=== PATIENT | male | born 1930 | race Caucasian/White ===

== ENCOUNTER 2016-09-14 08:07 | Inpatient (IN) | payer MEDICARE, OTHER ==
[2016-09-14] MEDS ORDERED: SUBLIMAZE 100 MCG/2 ML IV ONE (08:33)
[2016-09-14] MEDS ORDERED: PROTONIX 40 MG IV IV ONE ×2 (08:33→08:38)
[2016-09-14] MEDS ORDERED: Zofran 4 MG/2 ML VIAL IV ONE (08:33)
[2016-09-14] MEDS ORDERED: SUBLIMAZE 100 MCG/2 ML ONE (08:38)
[2016-09-14] MEDS ORDERED: Sodium Chloride 0.9% 1000 ML 1,000 ML ONE (08:38)
[2016-09-14] MEDS ORDERED: Zofran 4 MG/2 ML VIAL ONE (08:38)
[2016-09-14 08:39] LABS: BASOPHIL % 0.2 % (0.0-0.4); Eosinophil % 1.6 % (0.00-5.0); Granulocytes % 68.6 % (36.0-66.0); Lymphocytes % 22.6 % (24.0-44.0); Mean Cell Volume 89.2 fl (78-100); Mean Platelet Volume 9.4 fl (6-9.5); Platelet Count 203 K/mm3 (150-450); Red Blood Count 4.27 M/mm3 (4.1-5.6); Red Cell Distribution Width 13.7 % (11.5-14.0); White Blood Count 6.3 K/mm3 (4.0-10.5)
[2016-09-14] MEDS ORDERED: Sodium Chloride 0.9% 1000 ML 1,000 ML IV SCH (08:45)
--- NOTE | 2016-09-14 08:55 | ERPHSYRPT ---
- History of Present Illness Time Seen by Provider: 09/14/16 08:25 Historian: patient Exam Limitations: clinical condition Patient Subjective Stated Complaint: abd pain Triage Nursing Assessment: woke up with non radiating mid abd pain since 529-- pain lessened on arrival but still a 5/10. denies urine/bowel problems. noraml oral intake. bs present. abd soft but tender with palpation Physician History: PATIENT WITH HISTORY OF MID TO EPIGASTRIC PAINS ONSET 5AM TODAY, HAS PAIN SCALE 8/10, HAS IMPROVE TO PAIN SCALE 5/10. DENIES ASSOCIATED NAUSEA, EMESIS OR DIARRHEA. DENIES FEVER, COUGH, URINARY SYMPTOMS, FREQUENCY, DYSURIA, HEMATURIA OR DIARRHEA. Timing/Duration: today Activities at Onset: none Quality: cramping, sharpness Abdominal Pain Onset Location: epigastric, periumbilical Pain Radiation: no radiation Severity of Pain-Max: moderate Severity of Pain-Current: moderate Modifying Factors: Improves With: nothing Associated Symptoms: denies symptoms Previous symptoms: no prior history Allergies/Adverse Reactions: No Known Drug Allergies Allergy (Unverified 09/14/16 08:22) Home Medications: Clopidogrel Bisulfate 75 mg [PLAVIX 75 MG Tablet] 75 mg PO DAILY 12/19/12 [History] Bimatoprost 0.01% [Lumigan 0.01% 2.5 ml] 0 ml 03/30/13 [History] Fluticasone Propionate [Flonase] 16 gm NS DAILY 03/30/13 [History] Pravastatin Sodium 40 mg PO 03/30/13 [History] Valsartan/Hydrochlorothiazide [Diovan Hct 320-12.5 mg Tab] 1 each PO 03/30/13 [ History] Hx Tetanus, Diphtheria Vaccination/Date Given: Yes Hx Influenza Vaccination/Date Given: Yes Hx Pneumococcal Vaccination/Date Given: Yes Immunizations Up to Date: Yes - Review of Systems Constitutional: No Fever, No Chills Eyes: No Symptoms Ears, Nose, & Throat: No Symptoms Respiratory: No Symptoms, No Cough, No Dyspnea Cardiac: No Symptoms, No Chest Pain, No Edema, No Syncope Abdominal/Gastrointestinal: Abdominal Pain, No Nausea, No Vomiting, No Diarrhea Genitourinary Symptoms: No Symptoms, No Dysuria Musculoskeletal: No Symptoms, No Back Pain, No Neck Pain Skin: No Rash Neurological: No Dizziness, No Focal Weakness, No Sensory Changes Psychological: No Symptoms Endocrine: No Symptoms All Other Systems: Reviewed and Negative - Past Medical History Pertinent Past Medical History: Yes Neurological History: Stroke ENT History: Cataracts, Glaucoma, Other Cardiac History: Hypertension Respiratory History: No Pertinent History Endocrine Medical History: No Pertinent History Musculoskeletal History: No Pertinent History GI Medical History: Hernia History: No Pertinent History Psycho-Social History: No Pertinent History Male Reproductive Disorders: No Pertinent History - Past Surgical History Past Surgical History: Yes Neuro Surgical History: No Pertinent History Cardiac: No Pertinent History Respiratory: No Pertinent History Gastrointestinal: Appendectomy, Cholecystectomy, Hernia Repair Genitourinary: No Pertinent History Musculoskeletal: No Pertinent History Male Surgical History: No Pertinent History - Social History Smoking Status: Never smoker Exposure to second hand smoke: No Drug Use: none Patient Lives Alone: No - Nursing Vital Signs Nursing Vital Signs: Initial Vital Signs Temperature 97.3 F Temperature Source Oral Pulse Rate 62 Respiratory Rate 18 Blood Pressure [] 160/70 Pain Intensity 0 - Physical Exam General Appearance: no apparent distress, alert Eye Exam: PERRL/EOMI, eyes nml inspection Ears, Nose, Throat Exam: normal ENT inspection, pharynx normal, moist mucous membranes Neck Exam: normal inspection, non-tender, supple, full range of motion Respiratory Exam: normal breath sounds, lungs clear, No respiratory distress Cardiovascular Exam: regular rate/rhythm, normal heart sounds Gastrointestinal/Abdomen Exam: soft, normal bowel sounds, tenderness ( SUPRAUMBILICAL TENDERNESS, NO GUARDING OR REBOUND TENDERNESS), No mass Back Exam: normal inspection, normal range of motion, No CVA tenderness, No vertebral tenderness Extremity Exam: normal inspection, normal range of motion, pelvis stable Neurologic Exam: alert, oriented x 3, cooperative, normal mood/affect, nml cerebellar function, sensation nml, No motor deficits Skin Exam: normal color, warm, dry SpO2 Interpretation: normal SpO2: 96 Oxygen Delivery: Room Air - CT Exams Abdomen/Pelvis CT Interpretation: Tele-radiologist Report (THERE IS A 6 X 6 X 3 MM STONE AT THE RIGTH DISTAL URETER CAUSES NO RIGHT HYDRONEPHROSIS AND NO HYDROURETER) Ordered Tests: Active Orders 24 hr Category Date Time Status Clean Catch Urine Specimen STAT Care 09/14/16 08:33 Active IV Insertion STAT Care 09/14/16 08:33 Active ABDOMEN AND PELVIS W CONTRAST [CT] Stat Exams 03/12/17 08:33 Taken AMYLASE Stat Lab 09/14/16 08:30 Completed CBC W DIFF Stat Lab 09/14/16 08:30 Completed CMP Stat Lab 09/14/16 08:30 Completed LIPASE Stat Lab 09/14/16 08:30 Completed UA W/ MICROSCOPIC Stat Lab 09/14/16 09:20 Completed Transfer Order Routine Transfer 09/14/16 10:58 Ordered Medication Summary Generic Name Dose Route Start Last Admin Trade Name Freq PRN Reason Stop Dose Admin Sodium Chloride 1,000 mls @ 250 mls/hr 09/14/16 08:45 09/14/16 08:41 Sodium Chloride 0.9% 1000 Ml IV 10/14/16 08:44 250 mls/hr .Q4H VILMA Administration Discontinued Medications Generic Name Dose Route Start Last Admin Trade Name Freq PRN Reason Stop Dose Admin Fentanyl Citrate 50 mcg 09/14/16 08:33 09/14/16 08:40 Sublimaze 100 Mcg/2 Ml IV 09/14/16 08:34 50 mcg STAT ONE Administration Fentanyl Citrate Confirm 09/14/16 08:38 Sublimaze 100 Mcg/2 Ml Administered 09/14/16 08:39 Dose 100 mcg .ROUTE .STK-MED ONE Sodium Chloride Confirm 09/14/16 08:38 Sodium Chloride 0.9% 1000 Ml Administered 09/14/16 08:39 Dose 1,000 mls @ ud .ROUTE .STK-MED ONE Ondansetron HCl 4 mg 09/14/16 08:33 09/14/16 08:41 Zofran 4 Mg/2 Ml Vial IV 09/14/16 08:34 4 mg STAT ONE Administration Ondansetron HCl Confirm 09/14/16 08:38 Zofran 4 Mg/2 Ml Vial Administered 09/14/16 08:39 Dose 4 mg .ROUTE .STK-MED ONE Pantoprazole Sodium 40 mg 09/14/16 08:33 09/14/16 08:40 Protonix 40 Mg Iv IV 09/14/16 08:34 40 mg STAT ONE Administration Pantoprazole Sodium Confirm 09/14/16 08:38 Protonix 40 Mg Iv Administered 09/14/16 08:39 Dose 40 mg IV .STK-MED ONE Lab/Rad Data: Laboratory Result Diagrams 09/14/16 08:30 09/14/16 08:30 Laboratory Results 09/14/16 09/14/16 09/14/16 Range/Units 09:20 08:30 08:30 WBC 6.3 (4.0-10.5) K/mm3 RBC 4.27 (4.1-5.6) M/mm3 Hgb 12.8 (12.5-18.0) gm/dl Hct 38.1 L (42-50) % MCV 89.2 (78-100) fl MCH 30.0 (26-32) pg MCHC 33.6 (32-36) g/dl RDW 13.7 (11.5-14.0) % Plt Count 203 (150-450) K/mm3 MPV 9.4 (6-9.5) fl Gran % 68.6 H (36.0-66.0) % Lymphocytes % 22.6 L (24.0-44.0) % Monocytes % 7.0 (0.0-12.0) % Eosinophils % 1.6 (0.00-5.0) % Basophils % 0.2 (0.0-0.4) % Basophils # 0.01 (0-0.4) Sodium 135 L (136-145) mEq/L Potassium 3.4 L (3.5-5.1) mEq/L Chloride 103 (98-107) mEq/L Carbon Dioxide 28.8 (21-32) mEq/L Anion Gap 7.0 (5-15) MEQ/L BUN 25 H (9-20) mg/dL Creatinine 1.19 (0.55-1.30) mg/dl Estimated GFR > 60 ML/MIN Glucose 123 H (70-110) MG/DL Calcium 9.8 (8.5-10.1) mg/dL Total Bilirubin 0.9 (0.2-1.0) mg/dL AST 28 (15-37) U/L ALT 17 (12-78) U/L Alkaline Phosphatase 51 (46-116) U/L Serum Total Protein 7.0 (6.4-8.2) gm/dL Albumin 3.6 (3.4-5.0) g/dL Amylase 180 H (25-115) U/L Lipase 1910 H (73-393) U/L Ur Collection Type CCMS Urine Color YELLOW (YELLOW) Urine Appearance CLEAR (CLEAR) Urine pH 6.0 (5-6) Ur Specific [place] 1.025 (1.005-1.025) Urine Protein TRACE (Negative) Urine Glucose (UA) NEGATIVE (NEGATIVE) mg/dL Urine Ketones TRACE (NEGATIVE) Urine Nitrite NEGATIVE (NEGATIVE) Urine Bilirubin SMALL (NEGATIVE) Urine Urobilinogen 1 (0-1) mg/dL Urine WBC (Auto) NEGATIVE (NEGATIVE) Urine RBC (Auto) NEGATIVE (0-5) Jonatan/ul Ur Epithelial Cells RARE (FEW) /HPF Urine Bacteria FEW (NEGATIVE) /HPF Specimen Received 0909/14/16 - Progress Progress: improved Progress Note: 09/14/16 08:39 PATIENT GIVEN IV NORMAL SALINE 250ML/HR. ZOFRAN 4MG, PROTONIX 40MG AND FENTANYL 50MCG IV Discussed with Dr.: Mcfarland (DISCUSSED WITH DR MCFARLAND AT 1030 FOR OBSERVATION) Will see patient in: hospital (observation) - Departure Time of Disposition: 11:00 Departure Disposition: Observation Clinical Impression: ACUTE PANCREATITIS Condition: Stable Critical Care Time: No Referrals: TANIYA MADERA [Primary Care Provider] -
[2016-09-14 09:01] LABS: ALBUMIN 3.6 g/dL (3.4-5.0); ALKALINE PHOSPHATASE 51 U/L (46-116); BILIRUBIN,TOTAL 0.9 mg/dL (0.2-1.0); BLOOD UREA NITROGEN 25 mg/dL (9-20); CHLORIDE 103 mEq/L (98-107); Carbon Dioxide 28.8 mEq/L (21-32); Glucose 123 MG/DL (70-110); LIPASE 1910 U/L (73-393); Potassium 3.4 mEq/L (3.5-5.1); SGOT/AST 28 U/L (15-37); SGPT/ALT 17 U/L (12-78); SODIUM 135 mEq/L (136-145)
[2016-09-14 09:27] LABS: COMPLETE URINE MICROSCOPIC? YES; Collection Type CCMS
[2016-09-14 09:33] LABS: Bacteria FEW /HPF (NEGATIVE); Epithelial Cells RARE /HPF (FEW)
[2016-09-14] MEDS ORDERED: Zofran 4 MG/2 ML VIAL IV PRN (11:28)
[2016-09-14] MEDS ORDERED: MORPHINE SULFATE 2 MG INJ IV PRN ×2 (11:28→13:38)
--- NOTE | 2016-09-14 12:13 | XRAY ---
Indication: Epigastric pain. Multiple contiguous axial images obtained through the abdomen and pelvis using 80 cc Isovue 370 contrast only as ordered. Comparison: December 19, 2012. Lung bases again demonstrates bibasilar atelectasis/scarring and left base calcified granuloma. Heart is again enlarged. Stable small hiatal hernia. Previous appendectomy. No free fluid/air. Noncontrasted stomach and bowel loops appear nonobstructed with stable distal descending duodenal diverticulum. Again mild scattered fecal debris throughout and descending/sigmoid diverticulosis. Previous reported appendectomy. There has been interval cholecystectomy with mild biliary tree prominence. No free fluid/air. Stable left lobe hepatic cysts, nonobstructing distal right ureteral calculus, left renal parapelvic cysts, splenorenal varices, and calcified splenic granulomas. Remaining liver, pancreas, spleen, adrenal glands, kidneys, ureters, and bladder appear unremarkable. Minimal aortoiliac calcifications without AAA. No pathologic retroperitoneal lymphadenopathy. Osseous structures intact again with degenerative changes throughout the spine. Impression: 1. Interval cholecystectomy. Slightly prominent biliary tree, not unusual for cholecystectomy. 2. Stable cardiomegaly, hiatal hernia, duodenal diverticulum, colonic diverticulosis, hepatic cysts, nonobstructing distal right ureteral calculus, left renal parapelvic cysts, and splenorenal varices. Comment: Preliminary interpretation was made by [facility]. No discrepancy. CTDI 17.83
[2016-09-14] MEDS: Sodium Chloride 0.9% W/ 20 mEq KCl/LITER 1,000 ML IV SCH (13:12)
[2016-09-14] MEDS ORDERED: Klor Con 10 MEQ PO ONE (13:44)
[2016-09-14] MEDS ORDERED: LUMIGAN 0.01% 2.5 ML OP SCH (22:00)
[2016-09-14] MEDS ORDERED: Flonase NASAL NS SCH (22:00)
[2016-09-14] MEDS: Alphagan P 0.15% OP SCH (23:53)
[2016-09-15] MEDS: Sodium Chloride 0.9% W/ 20 mEq KCl/LITER 1,000 ML IV SCH ×2 (00:32→05:27)
[2016-09-15 06:05] LABS: ANION GAP 12.6 MEQ/L (5-15); BLOOD UREA NITROGEN 15 mg/dL (9-20); CHLORIDE 109 mEq/L (98-107); Carbon Dioxide 29.2 mEq/L (21-32); Glucose 88 MG/DL (70-110); Potassium 4.8 mEq/L (3.5-5.1); SODIUM 146 mEq/L (136-145)
[2016-09-15 07:45] VITALS: O2SAT 94
--- NOTE | 2016-09-15 08:20 | PCM.NOTE ---
Date and Time: 09/15/16816 Subjective Assessment: States he feels "fine" since yesterday after admission. Denies abd pain. - Review of Systems Constitutional: No Fever Abdominal/Gastrointestinal: No Abdominal Pain, No Vomiting Objective Exam General Appearance: no apparent distress Neurologic Exam: alert, oriented x 3, cooperative Skin Exam: normal color, warm, dry Respiratory Exam: normal breath sounds, lungs clear, No crackles/rales, No rhonchi, No wheezing Cardiovascular Exam: regular rate/rhythm, normal heart sounds, No murmur Gastrointestinal/Abdomen Exam: soft, normal bowel sounds, No tenderness, No distention, No mass OBJECTIVE DATA Vital Signs: Vital Signs - 24 hr Temp Pulse Resp BP Pulse Ox 09/15/16 07:44 98.2 F 45 L 17 138/63 94 L 09/15/16 04:45 98.1 F 49 L 15 109/52 92 L 09/15/16 04:39 16 09/15/16 04:00 98.1 F 52 L 16 97 09/15/16 00:00 98.1 F 52 L 16 148/64 97 09/14/16 20:00 98.1 F 47 L 15 131/61 95 09/14/16 17:03 14 09/14/16 16:20 97.3 F 47 L 16 151/67 94 L 09/14/16 13:03 16 09/14/16 11:29 97.9 F 52 L 18 165/82 96 09/14/16 11:07 53 L 18 162/71 09/14/16 11:02 96 09/14/16 09:58 62 18 160/70 09/14/16 09:09 66 18 136/72 97 Pain Assessment - Last Documented Pain Scale Used 0-10 Pain Scale Intake and Output: Intake & Output 09/12/16 09/13/16 09/14/16 09/15/16 10:59 10:59 11:59 11:59 Intake Total 1752 Output Total 1400 Balance 352 Lab Results: Lab Results-Last 24 Hours 09/15/16 Range/Units 05:12 Sodium 146 H (136-145) mEq/L Potassium 4.8 (3.5-5.1) mEq/L Chloride 109 H (98-107) mEq/L Carbon Dioxide 29.2 (21-32) mEq/L Anion Gap 12.6 (5-15) MEQ/L BUN 15 (9-20) mg/dL Creatinine 1.13 (0.55-1.30) mg/dl Estimated GFR > 60 ML/MIN Glucose 88 (70-110) MG/DL Calcium 8.4 L (8.5-10.1) mg/dL Assessment/Plan (1) Acute pancreatitis Current Visit: Yes Status: Acute Assessment & Plan: Unsure the etiology, post cholecystectomy. No abnormal pancreas findings on CT. Would continue fluids and CLD, amylase and lipase pending. Likely home tomorrow or the next day depending on labs. Code(s): K85.90 - ACUTE PANCREATITIS WITHOUT NECROSIS OR INFECTION, UNSP
[2016-09-15 08:27] LABS: LIPASE 147 U/L (73-393)
--- NOTE | 2016-09-15 08:49 | HP ---
HISTORY OF PRESENT ILLNESS: This is an 86 year-old patient of Dr. Stubbs who presented to the emergency department after waking up this morning at 0530 hours with epigastric pain, denies any radiation. He cannot really say if it was sharp or dull but just is very painful. He was given pain medicine in the emergency department that helped and labs done there and he was found to have an elevated amylase and lipase and was diagnosed with acute pancreatitis. The patient denies any new medications. He has had his gallbladder taken out one or two years ago. He does not drink any alcohol. He has not traveled anywhere. No sick contacts. He has not had anything like this happened before. REVIEW OF SYSTEMS: No vomiting. No nausea. No diarrhea. No constipation. No fever. No chest pain. No shortness of breath. PAST MEDICAL HISTORY: Hypertension, hyperlipidemia. He is not sure if he is still on his cholesterol medicine. History of a stroke three years ago. PAST SURGICAL HISTORY: Cholecystectomy, hernia surgery x2, appendectomy. MEDICATIONS: Lumigan 1 drop every evening, Alphagan 1 drop b.i.d., Plavix 75 mg daily, fluticasone q.h.s., Valsartan/hydrochlorothiazide 320/12.5 daily. ALLERGIES: NKDA. SOCIAL HISTORY: He denies any tobacco or alcohol use. He is and lives with his . FAMILY HISTORY: His mother is . His father is and had myocardial infarction at age 72. PHYSICAL EXAMINATION: VITAL SIGNS: Temperature current 97.9F, temperature max 97.9F, heart rate 52 to 66, respiratory rate 18, blood pressure 136 to 165 over 70 to 82, weight 88.5 kg. Oxygen saturation 96 to 97% on room air. GENERAL: The patient is lying in bed a pleasant talkative man in no acute distress. CVS: He has a regular rate and rhythm. No murmurs, gallops or rubs. CHEST: Clear to auscultation bilaterally. No crackles or wheezes. ABDOMEN: Soft, nontender, nondistended with normal bowel sounds. EXTREMITIES: No clubbing, cyanosis or edema. SKIN: Warm, dry and intact. LABORATORY DATA AND TESTS: CBC is within normal limits. Sodium 135, potassium 3.4. glucose 123, amylase 180, lipase 1,910. UA was negative. CT of the abdomen and pelvis was read as interval cholecystectomy, slightly prominent biliary tree, stable cardiomegaly, hiatal hernia, duodenal diverticulum, chronic diverticulosis, hepatic cyst, nonobstructing right distal ureteral calculus, left renal parapelvic cyst and splenorenal varices. ASSESSMENT AND PLAN: 1) Acute pancreatitis. The patient has been placed on IV fluids. He has morphine 2 mg every two hours as needed for pain. He does not have any pain now and would like to try to eat something, will start clear liquids and advance as tolerated. 2) Hyponatremia. Will continue with fluids and recheck BMP in the morning. I am going to hold his hydrochlorothiazide and will continue with Valsartan combination pill. 3) Hypokalemia. Will try giving him 20 mEq of potassium chloride p.o. x1.
[2016-09-15] MEDS ORDERED: DIOVAN PO SCH ×2 (10:00)
[2016-09-15] MEDS ORDERED: PLAVIX 75 MG Tablet PO SCH ×2 (10:00)
[2016-09-15] MEDS ORDERED: ENOXAPARIN SODIUM SQ SCH (10:00)
[2016-09-15] MEDS ORDERED: PROTONIX 40 MG IV IV SCH (10:00)
[2016-09-15] MEDS ORDERED: DIOVAN 80 MG PO SCH (10:00)
[2016-09-15] MEDS ORDERED: HYDRODIURIL 25 MG PO SCH ×2 (10:00)
[2016-09-15] MEDS: Alphagan P 0.15% OP SCH (10:27)
[2016-09-15] MEDS ORDERED: TYLENOL 325 MG PO PRN (12:20)
[2016-09-15 12:21] VITALS: BP 141/62; PULSE 40
--- NOTE | 2016-09-15 13:04 | PCM.DS ---
Discharge Summary Date of Admission: 09/14/16 13:45 Admitting Physician: TANIYA MADERA Primary Care Provider: TANIYA MADERA Allergies Allergies No Known Drug Allergies Allergy (Unverified 09/14/16 08:22) Hospital Summary - Hospital Course Hospital Course: Pt admitted with abd pain and found to have pancreatitis. Lipase was quite elevated at 1910. His pain resolved soon after admission. Tolerated liquid diet and wanted to go home. I advised we recheck the lipase, would likely need to stay another day or two. However, lipase was 147 and he tolerated bland diet so will d/c home. - Vitals & Intake/Output Vital Signs: Vital Signs Temperature 97.9 F 09/15/16 12:00 Pulse Rate 40 L 09/15/16 12:00 Respiratory Rate 16 09/15/16 12:00 Blood Pressure 141/62 09/15/16 12:00 O2 Sat by Pulse Oximetry 94 L 09/15/16 12:00 Intake & Output: Intake & Output 09/13/16 09/14/16 09/15/16 09/16/16 10:59 11:59 11:59 11:59 Intake Total 1752 Output Total 1700 Balance 52 - Lab Result Diagrams: 09/14/16 08:30 09/15/16 05:12 Lab Results-Last 24 Hrs: Lab Results-Last 24 Hours 09/15/16 09/15/16 Range/Units 05:12 05:30 Sodium 146 H (136-145) mEq/L Potassium 4.8 (3.5-5.1) mEq/L Chloride 109 H (98-107) mEq/L Carbon Dioxide 29.2 (21-32) mEq/L Anion Gap 12.6 (5-15) MEQ/L BUN 15 (9-20) mg/dL Creatinine 1.13 (0.55-1.30) mg/dl Estimated GFR > 60 ML/MIN Glucose 88 (70-110) MG/DL Calcium 8.4 L (8.5-10.1) mg/dL Amylase 79 (25-115) U/L Lipase 147 (73-393) U/L Discharge Exam General Appearance: no apparent distress, other (done this a.m.) Neurologic Exam: alert, oriented x 3, cooperative Respiratory Exam: normal breath sounds, lungs clear, No wheezing Cardiovascular Exam: regular rate/rhythm, normal heart sounds, No murmur Gastrointestinal/Abdomen Exam: soft, normal bowel sounds, No tenderness, No distention, No guarding, No rebound Final Diagnosis/Problem List - Final Discharge Diagnosis/Problem (1) Acute pancreatitis Current Visit: Yes Status: Acute Assessment & Plan: resolved, pt doing great. Unsure etiology but CT was done and negative. - Discharge Disposition: Home, Self-Care Condition: Stable Prescriptions: Continue Clopidogrel Bisulfate 75 mg [PLAVIX 75 MG Tablet] 75 mg PO DAILY Valsartan/Hydrochlorothiazide [Diovan Hct 320-12.5 mg Tab] 1 each PO DAILY Fluticasone Propionate [Flonase] 16 gm NS HS Bimatoprost 0.01% [Lumigan 0.01% 2.5 ml] 1 drop OP HS Brimonidine Tartrate [Alphagan P 0.15%] 1 drop OP BID Follow up with: TANIYA MADERA [Primary Care Provider] -
== END 2016-09-15 13:45 | disposition home or self-care (01) | DRG 439 ==
LOC: ED 08:07 → UNDOADMOB 11:21 → MED SURG 11:21 → OBSVTOIN 13:45
PROVIDERS: ADMIT Family Medicine; ATTEND Family Medicine
DX: K85.90 Acute pancreatitis without necrosis or infection, unspecified (principal); E87.1 Hypo-osmolality and hyponatremia; I10 Essential (primary) hypertension; E78.5 Hyperlipidemia, unspecified; E87.6 Hypokalemia; I51.7 Cardiomegaly; K44.9 Diaphragmatic hernia without obstruction or gangrene; Z86.73 Personal history of transient ischemic attack (TIA), and cerebral infarction without residual deficits; Z79.899 Other long term (current) drug therapy
CPT/HCPCS: 36000; 36415; 74177; 80048; 80053; 81000; 82150; 83690; 85025; 96360; 96361; 96374; 96375; 99285; J1650; J2405; J3010; A9270-GY

== ENCOUNTER 2016-10-17 03:08 | Observation (INO) | payer MEDICARE, OTHER ==
[2016-10-17] MEDS ORDERED: MORPHINE SULFATE 4 MG INJ IV ONE (03:32)
[2016-10-17] MEDS ORDERED: Zofran 4 MG/2 ML VIAL IV ONE (03:32)
--- NOTE | 2016-10-17 03:37 | ERPHSYRPT ---
- History of Present Illness Time Seen by Provider: 10/17/16 03:15 Historian: patient Exam Limitations: clinical condition Patient Subjective Stated Complaint: woke up with chest pain Triage Nursing Assessment: patient alert and orietned x3, no history of heart attacks, see's junior web developer at [facility] states he told him his heart was doing fine. lung sounds clear, pulses equal bialteral radius, bilateral lower edema Physician History: PATIENT WITH A HISTORY OF HYPERTENSION, HYPERLIPIDEMIA, RECENTLY DIAGNOSED WITH PANCREATITIS 1 MONTH AGO COMPLAINS OF EPIGASTRIC PAINS SINCE 1PM TONIGHT WHICH RADIATES TO BOTH SHOULDERS. STATES PAIN SCALE 9/10. DENIES EMESIS OR DIARRHEA. Timing/Duration: today Activities at Onset: none Quality: sharpness, stabbing Abdominal Pain Onset Location: epigastric Pain Radiation: shoulder Severity of Pain-Max: moderate Severity of Pain-Current: moderate Modifying Factors: Improves With: other (NAUSEA) Previous symptoms: same symptoms as today Allergies/Adverse Reactions: No Known Drug Allergies Allergy (Unverified 09/14/16 08:22) Home Medications: Clopidogrel Bisulfate 75 mg [PLAVIX 75 MG Tablet] 75 mg PO DAILY 12/19/12 [History] Bimatoprost 0.01% [Lumigan 0.01% 2.5 ml] 1 drop OP HS 03/30/13 [History] Fluticasone Propionate [Flonase] 16 gm NS HS 03/30/13 [History] Valsartan/Hydrochlorothiazide [Diovan Hct 320-12.5 mg Tab] 1 each PO DAILY 03/30 [History] Brimonidine Tartrate [Alphagan P 0.15%] 1 drop OP BID 09/14/16 [History] Hx Tetanus, Diphtheria Vaccination/Date Given: Yes Hx Influenza Vaccination/Date Given: Yes Hx Pneumococcal Vaccination/Date Given: Yes Immunizations Up to Date: Yes - Review of Systems Constitutional: No Fever, No Chills Eyes: No Symptoms Ears, Nose, & Throat: No Symptoms Respiratory: No Symptoms, No Cough, No Dyspnea Cardiac: No Symptoms, No Chest Pain, No Edema, No Syncope Abdominal/Gastrointestinal: Abdominal Pain, No Nausea, No Vomiting, No Diarrhea Genitourinary Symptoms: No Symptoms, No Dysuria Musculoskeletal: No Symptoms, Joint Redness, No Back Pain, No Neck Pain Skin: No Rash Neurological: No Dizziness, No Focal Weakness, No Sensory Changes Psychological: No Symptoms Endocrine: No Symptoms Hematologic/Lymphatic: No Symptoms All Other Systems: Reviewed and Negative - Past Medical History Pertinent Past Medical History: Yes Neurological History: Stroke ENT History: Cataracts, Glaucoma, Other Cardiac History: Hypertension Respiratory History: No Pertinent History Endocrine Medical History: No Pertinent History Musculoskeletal History: No Pertinent History GI Medical History: Hernia History: No Pertinent History Psycho-Social History: No Pertinent History Male Reproductive Disorders: No Pertinent History Other Medical History: Hx skin CA (melanoma) - Past Surgical History Past Surgical History: Yes Neuro Surgical History: No Pertinent History Cardiac: No Pertinent History Respiratory: No Pertinent History Gastrointestinal: Appendectomy, Cholecystectomy, Hernia Repair Genitourinary: No Pertinent History Musculoskeletal: No Pertinent History Male Surgical History: No Pertinent History Other Surgical History: skin cancer removed 8 yrs ago - Social History Smoking Status: Never smoker Exposure to second hand smoke: No Drug Use: none Patient Lives Alone: No - Nursing Vital Signs Nursing Vital Signs: Initial Vital Signs Temperature 97.7 F Temperature Source Oral Pulse Rate [] 58 Pulse Rate 48 Respiratory Rate 16 Blood Pressure [] 136/64 Pain Intensity 6 - Physical Exam General Appearance: mild distress, alert Eye Exam: PERRL/EOMI, eyes nml inspection Ears, Nose, Throat Exam: normal ENT inspection, pharynx normal, moist mucous membranes Neck Exam: normal inspection, non-tender, supple, full range of motion Respiratory Exam: normal breath sounds, lungs clear, No respiratory distress Cardiovascular Exam: regular rate/rhythm, normal heart sounds Gastrointestinal/Abdomen Exam: soft, normal bowel sounds, tenderness (EPIGASTRIC , NO GUARDING), No mass Back Exam: normal inspection, normal range of motion, No CVA tenderness, No vertebral tenderness Extremity Exam: normal inspection, normal range of motion, pelvis stable Neurologic Exam: alert, oriented x 3, cooperative, normal mood/affect, nml cerebellar function, sensation nml, No motor deficits Skin Exam: normal color, warm, dry SpO2 Interpretation: normal SpO2: 97 Oxygen Delivery: Room Air - Course EKG Interpreted by Me: RATE, Sinus Rhythm, NORMAL AXIS, Non-specific ST Changes - CT Exams Abdomen/Pelvis CT Interpretation: Tele-radiologist Report (NONOBSTRUCTED CALCULI DISTAL RIGHT URETER, UNCHANGE IN ITS LOCATION 6MM IN SIZE ) Ordered Tests: Active Orders 24 hr Category Date Time Status Up With Assistance ROUTINE Activity 10/17/16 06:30 Ordered Admission/Status Order ROUTINE Care 10/17/16 06:30 Ordered Call Admit Doctor for Orders ON ADMISSION Care 10/17/16 06:31 Ordered Clean Catch Urine Specimen STAT Care 10/17/16 03:32 Active Code Status Order ROUTINE Care 10/17/16 06:30 Ordered EKG-ER Only STAT Care 10/17/16 03:32 Active IV Care Q6H Care 10/17/16 06:30 Ordered IV Insertion STAT Care 10/17/16 03:32 Active Intake and Output Q12H Care 10/17/16 06:30 Ordered Telemetry ROUTINE Care 10/17/16 06:30 Ordered Vital Signs Q4H Care 10/17/16 06:30 Ordered Clear Liquid Diet 10/17/16 Breakfast Ordered ABDOMEN AND PELVIS W CONTRAST [CT] Stat Exams 10/17/16 03:32 Taken CHEST 1 VIEW (PORTABLE) Stat Exams 10/17/16 05:33 Ordered AMYLASE Stat Lab 10/17/16 03:44 Completed CBC W DIFF Stat Lab 10/17/16 03:44 Completed CMP Stat Lab 10/17/16 03:44 Completed LIPASE Stat Lab 10/17/16 03:44 Completed TROPONIN Stat Lab 10/17/16 03:44 Completed UA W/ MICROSCOPIC Stat Lab 10/17/16 04:02 Completed Transfer Order Routine Transfer 10/17/16 06:30 Ordered Medication Summary Generic Name Dose Route Start Last Admin Trade Name Freq PRN Reason Stop Dose Admin Sodium Chloride 1,000 mls @ 200 mls/hr 10/17/16 03:45 10/17/16 03:46 Sodium Chloride 0.9% 1000 Ml IV 11/16/16 03:44 200 mls/hr .Q5H VILMA Administration Discontinued Medications Generic Name Dose Route Start Last Admin Trade Name Freq PRN Reason Stop Dose Admin Morphine Sulfate 4 mg 10/17/16 03:32 10/17/16 03:46 Morphine Sulfate 4 Mg Inj IV 10/17/16 03:33 4 mg STAT ONE Administration Morphine Sulfate Confirm 10/17/16 03:45 Morphine Sulfate 4 Mg Inj Administered 10/17/16 03:46 Dose 4 mg .ROUTE .STK-MED ONE Ondansetron HCl 4 mg 10/17/16 03:32 10/17/16 03:46 Zofran 4 Mg/2 Ml Vial IV 10/17/16 03:33 4 mg STAT ONE Administration Ondansetron HCl Confirm 10/17/16 03:44 Zofran 4 Mg/2 Ml Vial Administered 10/17/16 03:45 Dose 4 mg .ROUTE .STK-MED ONE Lab/Rad Data: Laboratory Result Diagrams 10/17/16 03:44 10/17/16 03:44 Laboratory Results 10/17/16 10/17/16 10/17/16 Range/Units 04:02 03:44 03:44 WBC 5.1 (4.0-10.5) K/mm3 RBC 3.90 L (4.1-5.6) M/mm3 Hgb 11.8 L (12.5-18.0) gm/dl Hct 34.8 L (42-50) % MCV 89.2 (78-100) fl MCH 30.2 (26-32) pg MCHC 33.9 (32-36) g/dl RDW 13.5 (11.5-14.0) % Plt Count 158 (150-450) K/mm3 MPV 10.0 H (6-9.5) fl Gran % 44.4 (36.0-66.0) % Lymphocytes % 40.8 (24.0-44.0) % Monocytes % 7.7 (0.0-12.0) % Eosinophils % 6.5 H (0.00-5.0) % Basophils % 0.6 (0.0-0.4) % Basophils # 0.03 (0-0.4) Sodium 140 (136-145) mEq/L Potassium 3.2 L (3.5-5.1) mEq/L Chloride 103 (98-107) mEq/L Carbon Dioxide 28.5 (21-32) mEq/L Anion Gap 11.2 (5-15) MEQ/L BUN 21 H (9-20) mg/dL Creatinine 1.14 (0.55-1.30) mg/dl Estimated GFR > 60 ML/MIN Glucose 104 (70-110) MG/DL Calcium 8.3 L (8.5-10.1) mg/dL Total Bilirubin 0.9 (0.2-1.0) mg/dL AST 43 H (15-37) U/L ALT 25 (12-78) U/L Alkaline Phosphatase 64 (46-116) U/L Troponin I < 0.017 (0.000-0.056) ng/ml Serum Total Protein 6.7 (6.4-8.2) gm/dL Albumin 3.4 (3.4-5.0) g/dL Amylase 65 (25-115) U/L Lipase 144 (73-393) U/L Ur Collection Type CLEAN CATCH Urine Color DARK YELLOW (YELLOW) Urine Appearance CLEAR (CLEAR) Urine pH 6.0 (5-6) Ur Specific [place] 1.015 (1.005-1.025) Urine Protein NEGATIVE (Negative) Urine Glucose (UA) NEGATIVE (NEGATIVE) mg/dL Urine Ketones NEGATIVE (NEGATIVE) Urine Nitrite NEGATIVE (NEGATIVE) Urine Bilirubin NEGATIVE (NEGATIVE) Urine Urobilinogen 4 (0-1) mg/dL Urine WBC (Auto) NEGATIVE (NEGATIVE) Urine RBC (Auto) NEGATIVE (0-5) Jonatan/ul Specimen Received 10/17/16 0400 - Progress Progress: improved Progress Note: PATIENT GIVE IV NORMAL SALINE 200ML/HR ,ZOFRAN 4MG, MORPHINE 4MG IV FOR ANALGESIA Discussed with : Mala (DISCUSSED WITH DR MADERA AT 0600 FOR ADMISSION) Will see patient in: hospital (observation) - Departure Time of Disposition: 06:30 Departure Disposition: Observation Clinical Impression: INTRACTABLE ABDOMINAL PAIN Condition: Stable Critical Care Time: No Referrals: TANIYA MADERA [Primary Care Provider] -
[2016-10-17] MEDS ORDERED: Zofran 4 MG/2 ML VIAL ONE (03:44)
[2016-10-17] MEDS ORDERED: MORPHINE SULFATE 4 MG INJ ONE (03:45)
[2016-10-17] MEDS ORDERED: Sodium Chloride 0.9% 1000 ML 1,000 ML ONE (03:45)
[2016-10-17] MEDS ORDERED: Sodium Chloride 0.9% 1000 ML 1,000 ML IV SCH (03:45)
[2016-10-17 03:48] LABS: BASOPHIL % 0.6 % (0.0-0.4); Eosinophil % 6.5 % (0.00-5.0); Granulocytes % 44.4 % (36.0-66.0); Lymphocytes % 40.8 % (24.0-44.0); Mean Cell Volume 89.2 fl (78-100); Monocytes % 7.7 % (0.0-12.0); Platelet Count 158 K/mm3 (150-450); Red Cell Distribution Width 13.5 % (11.5-14.0); White Blood Count 5.1 K/mm3 (4.0-10.5)
[2016-10-17 04:00] LABS: Mean Corpuscular Hemoglobin 30.2 pg (26-32)
[2016-10-17 04:08] LABS: COMPLETE URINE MICROSCOPIC? NO; Collection Type CLEAN CATCH
[2016-10-17 04:15] LABS: ALBUMIN 3.4 g/dL (3.4-5.0); ALKALINE PHOSPHATASE 64 U/L (46-116); ANION GAP 11.2 MEQ/L (5-15); BILIRUBIN,TOTAL 0.9 mg/dL (0.2-1.0); BLOOD UREA NITROGEN 21 mg/dL (9-20); CHLORIDE 103 mEq/L (98-107); Carbon Dioxide 28.5 mEq/L (21-32); Glucose 104 MG/DL (70-110); LIPASE 144 U/L (73-393); Potassium 3.2 mEq/L (3.5-5.1); SGOT/AST 43 U/L (15-37); SGPT/ALT 25 U/L (12-78); SODIUM 140 mEq/L (136-145); Total Protein 6.7 gm/dL (6.4-8.2)
[2016-10-17 04:20] LABS: TROPONIN < 0.017 ng/ml (0.000-0.056)
[2016-10-17] MEDS ORDERED: Zofran 4 MG/2 ML VIAL IV PRN (06:30)
[2016-10-17] MEDS ORDERED: MORPHINE SULFATE 4 MG INJ IV PRN (06:30)
[2016-10-17] MEDS ORDERED: Sodium Chloride 0.9% W/ 20 mEq KCl/LITER 1,000 ML IV SCH (06:30)
[2016-10-17] MEDS ORDERED: TYLENOL 325 MG PO PRN (06:30)
--- NOTE | 2016-10-17 08:41 | PCM.SSS ---
History of Present Illness - Chief Complaint Chief Complaint: INTRACTABLE ABDOMINAL PAIN History of Present Illness: is a 86 year old male pt of mine from [facility] who woke up before 3 am with epigastric pain. Pain was "just hurting," 9/10, non radiating. NO N/V/D. He states the pain resolved with meds given in the ER. Significantly, he had pancreatitis about 1-2 months ago; no history alcohol intake, remote cholecystectomy. CT abd/pelvis negative for acute issues. Amylase and lipase wnl today. - Review of Systems Respiratory: Cough (pt with COPD, no increased cough) Abdominal/Gastrointestinal: Abdominal Pain All Other Systems: Reviewed and Negative Medications & Allergies Home Medications: Home Medication List Clopidogrel Bisulfate 75 mg [PLAVIX 75 MG Tablet] 75 mg PO DAILY 12/19/12 [History Confirmed 09/14/16] Bimatoprost 0.01% [Lumigan 0.01% 2.5 ml] 1 drop OP HS 03/30/13 [History Confirmed 09/14/16] Fluticasone Propionate [Flonase] 16 gm NS HS 03/30/13 [History Confirmed ] Valsartan/Hydrochlorothiazide [Diovan Hct 320-12.5 mg Tab] 1 each PO DAILY 03/30 [History Confirmed 09/14/16] Brimonidine Tartrate [Alphagan P 0.15%] 1 drop OP BID 09/14/16 [History Confirmed 09/14/16] Allergies/Adverse Reactions: Allergies Allergy/AdvReac Type Severity Reaction Status Date / Time No Known Drug Allergies Allergy Unverified 09/14/16 08:22 - Past Medical History Past Medical History: Yes Neurological History: Stroke ENT History: Cataracts, Glaucoma, Other Cardiac History: Hypertension Respiratory History: No Pertinent History Endocrine Medical History: No Pertinent History Musculoskelatal History: No Pertinent History GI Medical History: Hernia History: No Pertinent History Pyscho-Social History: No Pertinent History Male Reproductive Disorders: No Pertinent History Comment: Hx skin CA (melanoma) - Past Surgical History Past Surgical History: Yes Neuro Surgical History: No Pertinent History Cardiac History: No Pertinent History Respiratory Surgery: No Pertinent History GI Surgical History: Appendectomy, Cholecystectomy, Hernia Repair Genitourinary Surgical Hx: No Pertinent History Musculskeletal Surgical Hx: No Pertinent History Male Surgical History: No Pertinent History Other Surgical History: skin cancer removed 8 yrs ago - Social History Smoking Status: Never smoker Exposure to second hand smoke: No Alcohol: None Drug Use: none - Physical Exam Vital Signs: Vital Signs - 24 hr Temp Pulse Pulse Resp BP Pulse Ox 10/17/16 07:30 97.7 F 46 L 18 154/63 96 10/17/16 06:35 97 10/17/16 05:50 48 L 16 136/64 96 10/17/16 05:38 52 L 12 140/71 96 10/17/16 04:48 48 L 16 136/64 95 10/17/16 03:15 58 L 10/17/16 03:08 97.7 F 57 L 18 151/71 97 General Appearance: no apparent distress Neurologic Exam: alert, oriented x 3, cooperative Eye Exam: eyes nml inspection Neck Exam: normal inspection, non-tender, No lymphadenopathy Respiratory Exam: normal breath sounds, lungs clear, No crackles/rales, No rhonchi, No wheezing Cardiovascular Exam: regular rate/rhythm, normal heart sounds, No murmur Gastrointestinal/Abdomen Exam: soft, normal bowel sounds, No tenderness, No distention, No mass, No guarding, No rebound Back Exam: normal inspection Extremity Exam: normal inspection, No pedal edema, No swelling Skin Exam: normal color, warm, dry Assessment/Plan (1) Abdominal pain Current Visit: Yes Status: Acute Assessment & Plan: Resolved currently; however he has had pain medicine. Will go ahead and try CLD. Will have him follow up outpatient with DR. Fleming, GI doctor. Code(s): R10.9 - UNSPECIFIED ABDOMINAL PAIN (2) Chest pain Current Visit: Yes Status: Acute Qualifiers: Chest pain type: other chest pain Qualified Code(s): R07.89 - Other chest pain; R07.8 - Other chest pain Assessment & Plan: (epigastric pain) - will r/o OK. Code(s): R07.9 - CHEST PAIN, UNSPECIFIED Hospital Summary - Hospital Course Hospital Course: Pt admitted with epigastric pain not long after having admission for pancreatitis. Pain has currently resolved. WIll r/o OK; if pain does not return and tolerating po, may be able to d/c home tonight. Will have pt f[facility] GI outpatint. - Vitals & Intake/Output Vital Signs: Vital Signs Temperature 97.7 F 10/17/16 07:30 Pulse Rate 46 L 10/17/16 07:30 Respiratory Rate 18 10/17/16 07:30 Blood Pressure 154/63 10/17/16 07:30 O2 Sat by Pulse Oximetry 96 10/17/16 07:30 Intake & Output: Intake & Output 10/14/16 10/15/16 10/16/16 10/17/16 11:59 11:59 11:59 11:59 Output Total 100 Balance -100 Weight 87.634 kg - Lab Result Diagrams: 10/17/16 03:44 10/17/16 03:44 - Discharge Disposition: Home, Self-Care Condition: Stable Prescriptions: No Action Clopidogrel Bisulfate 75 mg [PLAVIX 75 MG Tablet] 75 mg PO DAILY Valsartan/Hydrochlorothiazide [Diovan Hct 320-12.5 mg Tab] 1 each PO DAILY Fluticasone Propionate [Flonase] 16 gm NS HS Bimatoprost 0.01% [Lumigan 0.01% 2.5 ml] 1 drop OP HS Brimonidine Tartrate [Alphagan P 0.15%] 1 drop OP BID Follow up with: ATNIYA MADERA [Primary Care Provider] -
--- NOTE | 2016-10-17 09:07 | XRAY ---
Indication: Epigastric pain. Multiple contiguous axial images obtained through the abdomen and pelvis using 80 cc Isovue 370 contrast only as ordered. Comparison: December 19, 2012. Lung bases again demonstrates bibasilar atelectasis/scarring and left base calcified granuloma. Heart remains enlarged. Stable small hiatal hernia. Noncontrasted stomach and bowel loops appear nonobstructed with stable distal descending duodenal diverticulum. Again mild scattered fecal debris throughout and descending/sigmoid diverticulosis. Previous reported appendectomy. Also again cholecystectomy with mild biliary tree prominence. No free fluid/air. Stable pancreatic calcifications from chronic pancreatitis, cirrhotic liver, left lobe hepatic cysts, nonobstructing distal right ureteral calculus, left renal parapelvic cysts, splenorenal varices, and calcified splenic granulomas. Remaining liver, pancreas, spleen, adrenal glands, kidneys, ureters, and bladder appear unremarkable. Minimal aortoiliac calcifications without AAA. No pathologic retroperitoneal lymphadenopathy. Osseous structures intact again with degenerative changes throughout the spine. Impression: 1. No new/acute intra-abdominal/pelvic abnormalities. 2. Stable cardiomegaly, hiatal hernia, duodenal diverticulum, colonic diverticulosis, cirrhosis, hepatic cysts, nonobstructing distal right ureteral calculus, left renal parapelvic cysts, splenorenal varices, and evidence for old granulomatous disease. Comment: Preliminary interpretation was made by [facility]. No discrepancy. CTDI 21.47
--- NOTE | 2016-10-17 09:17 | XRAY ---
Indication: Cough and epigastric pain. Comparison: November 30, 2015. Portable chest again demonstrates borderline cardiomegaly. Vascularity normal. Lungs clear. Bony thorax intact again with mild osteopenia and degenerative changes. Impression: Stable borderline cardiomegaly. No new/acute cardiopulmonary abnormalities.
[2016-10-17] MEDS ORDERED: PROTONIX 40 MG IV IV SCH (10:00)
[2016-10-17] MEDS ORDERED: PLAVIX 75 MG Tablet PO SCH (10:00)
[2016-10-17] MEDS ORDERED: Alphagan P 0.15% OP SCH (12:45)
[2016-10-17] MEDS ORDERED: hydroDIURIL 25 MG PO SCH (12:45)
[2016-10-17] MEDS ORDERED: DIOVAN 80 MG PO SCH (13:00)
[2016-10-17 16:51] VITALS: BP 146/64; PULSE 42; O2SAT 94
--- NOTE | 2016-10-17 21:26 | PCM.DS ---
Discharge Summary Date of Admission: 10/17/16 07:00 Admitting Physician: TANIYA MADERA Consults: Consults on Case 10/17/16 13:59 Consult Cardiology ROUTINE Primary Care Provider: TANIYA MADERA Allergies Allergies No Known Drug Allergies Allergy (Unverified 09/14/16 08:22) Hospital Summary - Hospital Course Hospital Course: Pt admitted with epigastric pain, stayed to rule out PA. Troponins negative but were slightly detectable. Then pt was noted to be bradycardic with HR in the 40s, consistently. No hx of same. Discussed with pt and family, called Dr. Lesly Mitchell (on for Dr. Massey) and he will accept the patient at [facility]. Pt agrees. - Vitals & Intake/Output Vital Signs: Vital Signs Temperature 97.7 F 10/17/16 16:00 Pulse Rate 42 L 10/17/16 16:00 Respiratory Rate 17 10/17/16 16:00 Blood Pressure 146/64 10/17/16 16:00 O2 Sat by Pulse Oximetry 94 L 10/17/16 16:00 Intake & Output: Intake & Output 10/15/16 10/16/16 10/17/16 10/18/16 11:59 11:59 11:59 11:59 Intake Total 1286 Output Total 100 770 Balance -100 516 Weight 87.634 kg - Lab Result Diagrams: 10/17/16 03:44 10/17/16 03:44 Lab Results-Last 24 Hrs: Lab Results-Last 24 Hours 10/17/16 10/17/16 10/17/16 Range/Units 08:50 11:40 15:00 Troponin I < 0.017 0.020 0.021 (0.000-0.056) ng/ml 10/17/16 Range/Units 18:01 Troponin I 0.017 (0.000-0.056) ng/ml - Procedures and Test Procedures and Tests throughout Hospitalization: Therapy Orders & Screens 10/17/16 08:39 EKG STAT Comment: Diagnosis: INTRACTABLE ABDOMINAL PAIN 10/17/16 16:55 EKG ONCE Comment: Diagnosis: INTRACTABLE ABDOMINAL PAIN 10/18/16 05:00 EKG ONCE Comment: Diagnosis: INTRACTABLE ABDOMINAL PAIN 10/19/16 05:00 EKG ONCE Comment: Diagnosis: INTRACTABLE ABDOMINAL PAIN 10/20/16 05:00 EKG ONCE Comment: Diagnosis: INTRACTABLE ABDOMINAL PAIN Discharge Exam General Appearance: no apparent distress Neurologic Exam: alert, oriented x 3, cooperative Skin Exam: normal color, warm, dry Respiratory Exam: wheezing (exp wheezes) Cardiovascular Exam: bradycardia Final Diagnosis/Problem List - Final Discharge Diagnosis/Problem (1) Bradycardia Current Visit: Yes Status: Acute Assessment & Plan: transfer to [facility] for specialist care and further eval/treatment. (2) Abdominal pain Current Visit: Yes Status: Resolved (3) Chest pain Current Visit: Yes Status: Resolved Assessment & Plan: PA ruled out. (4) HTN (hypertension) Current Visit: Yes Status: Chronic Assessment & Plan: stable, slightly elevated here. - Discharge Disposition: DC TO [facility] Condition: Stable Prescriptions: New NaCl 0.9% 1000 ml + KCl 20 Meq [Sodium Chloride 0.9% W/ 20 mEq KCl/LITER] 80 ml IV Q2H/PRN #1000 ml Continue Clopidogrel Bisulfate 75 mg [PLAVIX 75 MG Tablet] 75 mg PO DAILY Valsartan/Hydrochlorothiazide [Diovan Hct 320-12.5 mg Tab] 1 each PO DAILY Bimatoprost 0.01% [Lumigan 0.01% 2.5 ml] 1 drop OP HS Brimonidine Tartrate [Alphagan P 0.15%] 1 drop OP BID Pravastatin Sodium 40 mg PO DAILY Follow up with: TANIYA MADERA [Primary Care Provider] -
[2016-10-17] MEDS ORDERED: ZOCOR 20MG PO SCH (22:00)
[2016-10-17] MEDS ORDERED: LUMIGAN 0.01% 2.5 ML OP SCH (22:00)
[2016-10-18] MEDS ORDERED: VALSARTAN PO SCH (10:00)
[2016-10-18] MEDS ORDERED: PREVNAR 13 SYRINGE IM ONE (10:00)
[2016-10-18] MEDS ORDERED: PLAVIX 75 MG Tablet PO SCH (10:00)
[2016-10-18] MEDS ORDERED: NON-FORMULARY ITEM (Pravastatin Sodium [Pravastatin Sodium] 40 MG) PO SCH (10:00)
[2016-10-18] MEDS ORDERED: HYDROCHLOROTHIAZIDE PO SCH (10:00)
== END 2016-10-17 21:45 | disposition short-term general hospital (02) ==
LOC: ED 03:08 → MED SURG 07:00
PROVIDERS: ADMIT Family Medicine; ATTEND Family Medicine
DX: R00.1 Bradycardia, unspecified (principal); R10.9 Unspecified abdominal pain; R07.9 Chest pain, unspecified; I10 Essential (primary) hypertension; J44.9 Chronic obstructive pulmonary disease, unspecified; Z86.73 Personal history of transient ischemic attack (TIA), and cerebral infarction without residual deficits; Z85.820 Personal history of malignant melanoma of skin; Z79.899 Other long term (current) drug therapy; Z23 Encounter for immunization
CPT/HCPCS: 36000; 36415; 71010; 74177; 80053; 81000; 82150; 83690; 84484; 85025; 90670; 93005; 93268; 96360; 96361; 96374; 96375; 99285; G0009; G0378; J2270; J2405; A9270-GY

== ENCOUNTER 2016-11-28 05:46 | Day surgery (SDC) | payer MEDICARE, OTHER ==
[2016-11-28] MEDS ORDERED: Lactated Ringers 1,000 ML IV SCH (06:30)
[2016-11-28] MEDS ORDERED: Lactated Ringers 1,000 ML IV ONE (06:32)
[2016-11-28 09:41] VITALS: O2SAT 97
[2016-11-28 09:46] VITALS: BP 148/63; PULSE 55
--- NOTE | 2016-11-28 11:26 | OP ---
SURGERY DATE/TIME: 11/28/2016818 PREOPERATIVE DIAGNOSIS: Nausea. POSTOPERATIVE DIAGNOSIS: Moderate to severe gastritis and hiatal hernia. PROCEDURE: Esophagogastroduodenoscopy with biopsy. SURGEON: Dr. Cardenas. ANESTHESIA: Medications were given by the anesthesia department. BRIEF HISTORY: The patient is an 86 year old white male patient presenting now with complaints of nausea. He reports that he has lost some weight. The patient was felt the need to have endoscopic evaluation and he was appraised of the risks of the procedure including the risk of perforation, phlebitis, untoward reaction to medication, bleeding, and missed lesions. The patient verbalized his understanding and desired to have the procedure performed. DESCRIPTION OF PROCEDURE: The patient was given the medications by the anesthesia department. He had continuous pulse oximetry, ECG monitoring, intermittent blood pressure monitoring and tidal CO2 monitoring during the examination. He was placed in the left lateral decubitus position. A bite block was placed and the flexible Olympus gastroscope was used to intubate the oropharynx. A view of the larynx was obtained and this was normal. The scope was easily introduced in the esophagus which appeared to be normal to the gastroesophageal junction where there appeared to be a hiatal hernia. The scope was introduced in the stomach. Gastric rugal folds were somewhat flattened and appeared to be narrow stomach. The gastric de la rosa was suctioned dry. The scope was passed along the greater curvature of the stomach to the antrum which appeared to be moderately erythematous with patchy areas noted but no erosions or ulcerations were encountered. The duodenum was inspected and found to be normal. The scope was withdrawn back to the stomach. Retroflex view was obtained of the lesser curvature, fundus and cardia regions of the stomach. Again there was noted a flattening of the rugal folds and noted the hiatal hernia as well. Biopsies were then obtained from the gastric antrum area to rule out the presence of Helicobacter pylori-type organisms and also to rule out the presence of underlying possible gastric lymphoma. The scope was then removed from the patient who tolerated the procedure well and was [facility].
[2016-11-28] MEDS ORDERED: DIPRIVAN 200 MG/20 ML IV ONE (14:36)
== END 2016-11-28 09:40 | disposition home or self-care (01) ==
LOC: SDC 05:46
PROVIDERS: ATTEND Family Medicine
PROC: 0DB68ZX Excision of Stomach, Via Natural or Artificial Opening Endoscopic, Diagnostic (ICD-10-PCS; principal; 2016-11-28)
DX: K29.70 Gastritis, unspecified, without bleeding (principal); K44.9 Diaphragmatic hernia without obstruction or gangrene
CPT/HCPCS: 00740; 36415; 88305; 99100; J2704

== ENCOUNTER 2016-12-03 15:37 | Emergency (ER) | payer MEDICARE, OTHER ==
--- NOTE | 2016-12-03 16:20 | ERPHSYRPT ---
- History of Present Illness Time Seen by Provider: 12/03/16 16:14 Source: patient Exam Limitations: no limitations Patient Subjective Stated Complaint: states feels weak and has general all over body aches. decreased appetite. had an EGD by Theresa on Thursday d/t feeling pressure, knotlike and pain after eating. Triage Nursing Assessment: Pt A/OX3, speech clear, c/o general body aches. denies SOB, states has a chronic nonproductive cough, denies N/V/D. Skin pink, warm and dry. gait steady Physician History: The patient is an 86-year-old male with his son complaining of weakness and all over body aches since yesterday. He says I feel like I have the flu. He's had a mild cough for 3 months. Last night he felt like he was chilling. He did get his flu vaccination this year. He has a past medical history of hypertension, high cholesterol, and stroke. Timing/Duration: yesterday Severity: moderate Modifying Factors: Improves With: nothing Associated Symptoms: cough, chills Allergies/Adverse Reactions: No Known Drug Allergies Allergy (Verified 11/24/16 15:12) Home Medications: Clopidogrel Bisulfate 75 mg [PLAVIX 75 MG Tablet] 75 mg PO DAILY 12/19/12 [History] Bimatoprost 0.01% [Lumigan 0.01% 2.5 ml] 1 drop OP HS 03/30/13 [History] Valsartan/Hydrochlorothiazide [Diovan Hct 320-12.5 mg Tab] 1 each PO DAILY 03/30 [History] Brimonidine Tartrate [Alphagan P 0.15%] 1 drop OP BID 09/14/16 [History] Pravastatin Sodium 40 mg PO DAILY 10/17/16 [History] Hx Tetanus, Diphtheria Vaccination/Date Given: Yes Hx Influenza Vaccination/Date Given: Yes Hx Pneumococcal Vaccination/Date Given: Yes Immunizations Up to Date: Yes - Review of Systems Constitutional: Chills Eyes: No Symptoms Ears, Nose, & Throat: No Symptoms Respiratory: Cough Cardiac: No Chest Pain, No Edema, No Syncope Abdominal/Gastrointestinal: No Abdominal Pain, No Nausea, No Vomiting, No Diarrhea Genitourinary Symptoms: No Dysuria Musculoskeletal: Myalgias Skin: No Rash Neurological: No Dizziness, No Focal Weakness, No Sensory Changes Psychological: No Symptoms Endocrine: No Symptoms Hematologic/Lymphatic: No Symptoms Immunological/Allergic: No Symptoms All Other Systems: Reviewed and Negative - Past Medical History Pertinent Past Medical History: Yes Neurological History: Stroke ENT History: Cataracts, Glaucoma, Other Cardiac History: Hypertension, Other Respiratory History: No Pertinent History Endocrine Medical History: No Pertinent History Musculoskeletal History: No Pertinent History GI Medical History: Hernia History: No Pertinent History Psycho-Social History: No Pertinent History Male Reproductive Disorders: No Pertinent History Other Medical History: Hx skin CA (melanoma), pt denies HTN, states he has a slow heart rate. - Past Surgical History Past Surgical History: Yes Neuro Surgical History: No Pertinent History Cardiac: No Pertinent History Respiratory: No Pertinent History Gastrointestinal: Appendectomy, Cholecystectomy, Hernia Repair Genitourinary: No Pertinent History Musculoskeletal: No Pertinent History Male Surgical History: No Pertinent History Other Surgical History: skin cancer removed 8 yrs ago - Social History Smoking Status: Never smoker Exposure to second hand smoke: No Drug Use: none Patient Lives Alone: Yes - Nursing Vital Signs Nursing Vital Signs: Initial Vital Signs Temperature 99.9 F Temperature Source Oral Pulse Rate 69 Respiratory Rate 18 Blood Pressure [] 151/69 Pain Intensity 1 - Physical Exam General Appearance: no apparent distress, alert Eye Exam: PERRL/EOMI, eyes nml inspection Ears, Nose, Throat Exam: normal ENT inspection, TMs normal, pharynx normal, moist mucous membranes Neck Exam: normal inspection, non-tender, supple, full range of motion Respiratory Exam: lungs clear, rhonchi, No respiratory distress Cardiovascular Exam: regular rate/rhythm, normal heart sounds, normal peripheral pulses Gastrointestinal/Abdomen Exam: soft, normal bowel sounds, No tenderness, No mass Rectal Exam: not done Back Exam: normal inspection, normal range of motion, No CVA tenderness, No vertebral tenderness Extremity Exam: normal inspection, normal range of motion, pelvis stable Neurologic Exam: alert, oriented x 3, cooperative, normal mood/affect, nml cerebellar function, nml station & gait, sensation nml, No motor deficits Skin Exam: normal color, warm, dry, No rash Lymphatic Exam: No adenopathy SpO2 Interpretation: normal SpO2: 92 Oxygen Delivery: Room Air - Radiology Exams Chest X-ray Interpretation: Teleradiologist Report, Pneumonia (bibasilar pneumonia per Dr Castellano.) Ordered Tests: Active Orders 24 hr Category Date Time Status CHEST 2 VIEWS (PA AND LAT) Stat Exams 12/03/16 16:25 Completed BMP Stat Lab 12/03/16 16:30 Completed CBC W DIFF Stat Lab 12/03/16 16:30 Completed Manual Differential NC Stat Lab 12/03/16 16:30 Completed Medication Summary Discontinued Medications Generic Name Dose Route Start Last Admin Trade Name Freq PRN Reason Stop Dose Admin Ceftriaxone Sodium 1,000 mg 12/03/16 17:40 Rocephin 500 Mg Inj IM 12/03/16 17:41 STAT ONE Ceftriaxone Sodium Confirm 12/03/16 17:44 Rocephin 1000 Mg Inj Administered 12/03/16 17:45 Dose 1,000 mg .ROUTE .eVigilo-MED ONE Lab/Rad Data: Laboratory Result Diagrams 12/03/16 16:30 12/03/16 16:30 Laboratory Results 12/03/16 12/03/16 12/03/16 Range/Units 16:30 16:30 16:30 WBC 8.5 (4.0-10.5) K/mm3 RBC 3.65 L (4.1-5.6) M/mm3 Hgb 11.1 L (12.5-18.0) gm/dl Hct 33.3 L (42-50) % MCV 91.2 (78-100) fl MCH 30.4 (26-32) pg MCHC 33.3 (32-36) g/dl RDW 14.2 H (11.5-14.0) % Plt Count 190 (150-450) K/mm3 MPV 9.1 (6-9.5) fl Sodium 138 (136-145) mEq/L Potassium 3.8 (3.5-5.1) mEq/L Chloride 102 (98-107) mEq/L Carbon Dioxide 28.9 (21-32) mEq/L Anion Gap 10.6 (5-15) MEQ/L BUN 31 H (9-20) mg/dL Creatinine 1.16 (0.55-1.30) mg/dl Estimated GFR > 60 ML/MIN Glucose 110 (70-110) MG/DL Calcium 8.7 (8.5-10.1) mg/dL Influenza Type A Ag NEGATIVE (NEGATIVE) Influenza Type B Ag NEGATIVE (NEGATIVE) RSV (PCR) NEGATIVE (Negative) - Progress Progress: unchanged Counseled pt/family regarding: lab results, diagnosis, rad results - Departure Time of Disposition: 17:50 Departure Disposition: Home Clinical Impression: Pneumonia Condition: Stable Critical Care Time: No Referrals: TANIYA MADERA [Primary Care Provider] - Additional Instructions: You have pneumonia at the base of both lungs. This is the reason for your body aches and weakness. The influenza screen was negative. You were given an injection of Rocephin 1 g IM in the ER. Continue with a Z-Matt as directed. Follow up in 1-2 days. Take Tylenol and ibuprofen as needed. Prescriptions: Azithromycin 250 mg [Zithromax 250 MG TABLET] 250 mg PO ZPACK #6 tablet
[2016-12-03 16:54] LABS: Mean Cell Volume 91.2 fl (78-100); Mean Corpuscular Hemoglobin 30.4 pg (26-32); Mean Platelet Volume 9.1 fl (6-9.5); Platelet Count 190 K/mm3 (150-450); Red Blood Count 3.65 M/mm3 (4.1-5.6); Red Cell Distribution Width 14.2 % (11.5-14.0); White Blood Count 8.5 K/mm3 (4.0-10.5)
[2016-12-03 17:11] LABS: ANION GAP 10.6 MEQ/L (5-15); BLOOD UREA NITROGEN 31 mg/dL (9-20); CHLORIDE 102 mEq/L (98-107); Carbon Dioxide 28.9 mEq/L (21-32); Glucose 110 MG/DL (70-110); Potassium 3.8 mEq/L (3.5-5.1); SODIUM 138 mEq/L (136-145)
--- NOTE | 2016-12-03 17:26 | XRAY ---
Exam: Two-view chest from 12/03/2016. Comparison: Two-view chest from 11/17/2016. Indication: Cough. Findings: Upright PA and lateral chest films were obtained. The heart size appears mildly enlarged with left ventricular prominence. I note some new patchy airspace infiltrate at the right lung base on the PA film. This could be possibly located within both the right middle lobe and right lower lobe, judging from the lateral image. In addition, there is some minimal airspace infiltrate at the lateral left lung base which I do not appreciate on the frontal film of 11/17/2016. The upper and midlung zones appear clear. No vascular congestion, pneumothorax, or pleural fluid is seen. The lungs are mildly hyperinflated. The visualized bones appear intact. Multiple surgical clips are seen within the upper anterior abdomen on the lateral radiograph. Correlate with surgical history. Impression: 1. I believe there has been development of mild bibasilar airspace disease, right greater than left, suggestive of pneumonia. This represents an unfavorable change from 11/17/2016. 2. Stable mild cardiomegaly.
[2016-12-03] MEDS ORDERED: Rocephin 500 MG INJ IM ONE (17:40)
[2016-12-03] MEDS ORDERED: Rocephin 1000 MG INJ ONE (17:44)
[2016-12-03 18:00] VITALS: BP 139/72; PULSE 74; O2SAT 90
[2016-12-04 00:59] LABS: Platelet Estimate NORMAL (NORMAL); Total Cells Counted 100
== END 2016-12-03 18:03 | disposition home or self-care (01) ==
LOC: ED 15:37
DX: J18.9 Pneumonia, unspecified organism (principal); R05 Cough; I10 Essential (primary) hypertension; E78.00 Pure hypercholesterolemia, unspecified; Z86.73 Personal history of transient ischemic attack (TIA), and cerebral infarction without residual deficits; Z79.899 Other long term (current) drug therapy
CPT/HCPCS: 36415; 71020; 80048; 85025; 87631; 96372; 99284; J0696

== ENCOUNTER 2017-05-27 13:29 | Inpatient (IN) | payer MEDICARE, OTHER ==
[2017-05-27 14:10] LABS: BASOPHIL % 0.5 % (0.0-0.4); Eosinophil % 1.7 % (0.00-5.0); Granulocytes % 64.4 % (36.0-66.0); Lymphocytes % 27.1 % (24.0-44.0); Mean Cell Volume 90.7 fl (78-100); Mean Corpuscular Hemoglobin 29.9 pg (26-32); Mean Platelet Volume 9.9 fl (6-9.5); Monocytes % 6.3 % (0.0-12.0); Platelet Count 196 K/mm3 (150-450); Red Blood Count 4.42 M/mm3 (4.1-5.6); Red Cell Distribution Width 15.3 % (11.5-14.0); White Blood Count 7.5 K/mm3 (4.0-10.5)
--- NOTE | 2017-05-27 14:11 | ERPHSYRPT ---
- History of Present Illness Time Seen by Provider: 05/27/17 13:57 Historian: patient Exam Limitations: no limitations Patient Subjective Stated Complaint: rectal bleeding times one today at home and once in er. denies any pain Triage Nursing Assessment: ambulated to room per self. skin w/d, color normal. had one bloody stool in er. states it was bright red. a/o times three. abd soft, nontender. normal bowel sounds. Physician History: 87-year-old white male with history of cataracts, CVA, glaucoma, high blood pressure, hernia He arrives with complaint of bright red blood in his stool since one hour prior to arrival. He stated that he had right red blood mixed with stool one hour prior to arrival and stated that he had a of stool on arrival to the emergency room which was grossly bloody. He denies any abdominal pain no nausea no vomiting has not been otherwise ill. Past medical history includes CVA, glaucoma, cataracts, high blood pressure, hernia, skin cancer in the past, slow heart rate. Past medical history includes appendectomy, cholecystectomy, hernia repair, skin cancer removed. Social history patient denies tobacco alcohol or illicit drug use. Timing/Duration: today (one hour prior to arrival) Activities at Onset: none Quality: other (no pain) Abdominal Pain Onset Location: other (No pain) Pain Radiation: no radiation (no pain) Severity of Pain-Max: none Severity of Pain-Current: none Modifying Factors: Improves With: nothing Associated Symptoms: other (gross blood in stools one hour prior to arrival), No back, No chest pain, No diaphoresis, No diarrhea, No fever/chills, No fatigue , No headache, No heartburn, No loss of appetite, No nausea, No neck pain, No rash, No shortness of breath, No syncope, No vomiting, No weakness Previous symptoms: no prior history Allergies/Adverse Reactions: No Known Drug Allergies Allergy (Verified 05/27/17 13:35) Home Medications: Clopidogrel Bisulfate 75 mg [PLAVIX 75 MG Tablet] 75 mg PO DAILY 12/19/12 [History] Bimatoprost 0.01% [Lumigan 0.01% 2.5 ml] 1 drop OP HS 03/30/13 [History] Valsartan/Hydrochlorothiazide [Diovan Hct 320-12.5 mg Tab] 1 each PO DAILY 03/30 [History] Brimonidine Tartrate [Alphagan P 0.15%] 1 drop OP BID 09/14/16 [History] Multivit-Min/FA/Lycopen/Lutein [Centrum Silver Tablet] 1 each PO DAILY 05/27/17 [History] Ranitidine HCl [Zantac] 150 mg PO BID 05/27/17 [History] Hx Tetanus, Diphtheria Vaccination/Date Given: No Hx Influenza Vaccination/Date Given: Yes Hx Pneumococcal Vaccination/Date Given: Yes - Review of Systems Constitutional: No Fever, No Chills Eyes: No Symptoms Ears, Nose, & Throat: No Symptoms Respiratory: No Cough, No Dyspnea Cardiac: No Chest Pain, No Edema, No Syncope Abdominal/Gastrointestinal: Hematochezia, No Abdominal Pain, No Nausea, No Vomiting, No Diarrhea, No Constipation, No Hematemesis, No Melena, No Dysphagia , No Appetite Changes Genitourinary Symptoms: No Dysuria Musculoskeletal: No Back Pain, No Neck Pain Skin: No Rash Neurological: No Dizziness, No Focal Weakness, No Sensory Changes Psychological: No Symptoms Endocrine: No Symptoms All Other Systems: Reviewed and Negative - Past Medical History Pertinent Past Medical History: Yes Neurological History: Stroke ENT History: Cataracts, Glaucoma, Other Cardiac History: Hypertension, Other Respiratory History: No Pertinent History Endocrine Medical History: No Pertinent History Musculoskeletal History: No Pertinent History GI Medical History: Hernia History: No Pertinent History Psycho-Social History: No Pertinent History Male Reproductive Disorders: No Pertinent History Other Medical History: Hx skin CA (melanoma), pt denies HTN, states he has a slow heart rate. - Past Surgical History Past Surgical History: Yes Neuro Surgical History: No Pertinent History Cardiac: No Pertinent History Respiratory: No Pertinent History Gastrointestinal: Appendectomy, Cholecystectomy, Hernia Repair Genitourinary: No Pertinent History Musculoskeletal: No Pertinent History Male Surgical History: No Pertinent History Other Surgical History: skin cancer removed 8 yrs ago - Social History Smoking Status: Never smoker Exposure to second hand smoke: No Drug Use: none Patient Lives Alone: No - Nursing Vital Signs Nursing Vital Signs: Initial Vital Signs Temperature 97.4 F 05/27/17 13:41 Pulse Rate 77 05/27/17 13:41 Respiratory Rate 20 05/27/17 13:41 Blood Pressure 153/75 05/27/17 13:41 O2 Sat by Pulse Oximetry 93 L 05/27/17 13:41 Pain Scale Pain Intensity 0 - Physical Exam General Appearance: no apparent distress, alert Eye Exam: PERRL/EOMI, eyes nml inspection Ears, Nose, Throat Exam: normal ENT inspection, pharynx normal, moist mucous membranes Neck Exam: normal inspection, non-tender, supple, full range of motion Respiratory Exam: normal breath sounds, lungs clear, No respiratory distress Cardiovascular Exam: regular rate/rhythm, normal heart sounds Gastrointestinal/Abdomen Exam: soft, No tenderness, No mass Rectal Exam: normal rectal tone, blood Back Exam: normal inspection, normal range of motion, No CVA tenderness, No vertebral tenderness Extremity Exam: normal inspection, normal range of motion, pelvis stable Neurologic Exam: alert, oriented x 3, cooperative, normal mood/affect, nml cerebellar function, sensation nml, No motor deficits Skin Exam: normal color, warm, dry SpO2 Interpretation: normal (93%) SpO2: 93 Oxygen Delivery: Room Air Ordered Tests: Active Orders 24 hr Category Date Time Status IV Insertion STAT Care 05/27/17 14:01 Active IV Insertion-2nd Peripheral STAT Care 05/27/17 14:14 Active CBC W DIFF Stat Lab 05/27/17 13:47 Completed CMP Stat Lab 05/27/17 13:47 Completed Occult Blood,Stool Other Stat Lab 05/27/17 14:25 Completed PROTIME WITH INR Stat Lab 05/27/17 13:47 Completed PTT Stat Lab 05/27/17 13:47 Completed Medication Summary Generic Name Dose Route Start Last Admin Trade Name Freq PRN Reason Stop Dose Admin Pantoprazole Sodium 40 mg 05/27/17 15:00 Protonix 40 Mg Iv IV 05/27/17 15:01 STAT ONE Lab/Rad Data: Laboratory Result Diagrams 05/27/17 13:47 05/27/17 13:47 Laboratory Results 05/27/17 05/27/17 05/27/17 Range/Units 14:25 13:47 13:47 WBC (4.0-10.5) K/mm3 RBC (4.1-5.6) M/mm3 Hgb (12.5-18.0) gm/dl Hct (42-50) % MCV (78-100) fl MCH (26-32) pg MCHC (32-36) g/dl RDW (11.5-14.0) % Plt Count (150-450) K/mm3 MPV (6-9.5) fl Gran % (36.0-66.0) % Lymphocytes % (24.0-44.0) % Monocytes % (0.0-12.0) % Eosinophils % (0.00-5.0) % Basophils % (0.0-0.4) % Basophils # (0-0.4) INR 1.05 (0.8-3.0) APTT 27.1 (24.1-36.1) SECONDS Sodium 140 (136-145) mEq/L Potassium 3.7 (3.5-5.1) mEq/L Chloride 106 (98-107) mEq/L Carbon Dioxide 26.4 (21-32) mEq/L Anion Gap 11.6 (5-15) MEQ/L BUN 35 H (9-20) mg/dL Creatinine 1.35 H (0.55-1.30) mg/dl Estimated GFR 53 ML/MIN Glucose 112 H (70-110) MG/DL Calcium 9.2 (8.5-10.1) mg/dL Total Bilirubin 0.90 (0.2-1.0) mg/dL AST 25 (15-37) U/L ALT 25 (12-78) U/L Alkaline Phosphatase 82 (46-116) U/L Serum Total Protein 7.6 (6.4-8.2) gm/dL Albumin 3.6 (3.4-5.0) g/dL Stool Occult Blood POSITIVE (Negative) 05/27/17 Range/Units 13:47 WBC 7.5 (4.0-10.5) K/mm3 RBC 4.42 (4.1-5.6) M/mm3 Hgb 13.2 (12.5-18.0) gm/dl Hct 40.1 L (42-50) % MCV 90.7 (78-100) fl MCH 29.9 (26-32) pg MCHC 32.9 (32-36) g/dl RDW 15.3 H (11.5-14.0) % Plt Count 196 (150-450) K/mm3 MPV 9.9 H (6-9.5) fl Gran % 64.4 (36.0-66.0) % Lymphocytes % 27.1 (24.0-44.0) % Monocytes % 6.3 (0.0-12.0) % Eosinophils % 1.7 (0.00-5.0) % Basophils % 0.5 (0.0-0.4) % Basophils # 0.04 (0-0.4) INR (0.8-3.0) APTT (24.1-36.1) SECONDS Sodium (136-145) mEq/L Potassium (3.5-5.1) mEq/L Chloride (98-107) mEq/L Carbon Dioxide (21-32) mEq/L Anion Gap (5-15) MEQ/L BUN (9-20) mg/dL Creatinine (0.55-1.30) mg/dl Estimated GFR ML/MIN Glucose (70-110) MG/DL Calcium (8.5-10.1) mg/dL Total Bilirubin (0.2-1.0) mg/dL AST (15-37) U/L ALT (12-78) U/L Alkaline Phosphatase (46-116) U/L Serum Total Protein (6.4-8.2) gm/dL Albumin (3.4-5.0) g/dL Stool Occult Blood (Negative) - Progress Progress: improved Progress Note: 05/27/17 15:01 87-year-old elderly white male with history of cataracts glaucoma CVA high blood pressure. Patient with a bloody stool prior to arrival approximately 1 hour he had another one here in the emergency room just after arrival. And apparently has just had a subsequent 1 patient's vitals are stable patient' s hemoglobin is stable at this time INR is within normal limits. Patient with gross blood on rectal examination. I've discussed case with Dr. Olivo who is ribbon blockmaker for Dr. Medeiros will give patient Protonix 40 mg IV begin normal saline 100 mL per hour. Blood has been ordered to be type and screen will place an order in for type and crossmatch 2 units be placed on hold. Will place patient on telemetry repeat CBC in 6 hours. Clear fluids. - Departure Time of Disposition: 15:02 Departure Disposition: Observation (observation telemetry) Clinical Impression: GI bleed Qualifiers: GI bleed type/associated pathology: unspecified gastrointestinal hemorrhage type Qualified Code(s): K92.2 - Gastrointestinal hemorrhage, unspecified Condition: Fair Critical Care Time: No Referrals: TANIYA MEDEIROS [Primary Care Provider] -
[2017-05-27 14:14] LABS: INR 1.05 (0.8-3.0); PROTIME 11.7 SECONDS (8.83-12.87)
[2017-05-27 14:17] LABS: PTT 27.1 SECONDS (24.1-36.1)
[2017-05-27 14:24] LABS: ALBUMIN 3.6 g/dL (3.4-5.0); ANION GAP 11.6 MEQ/L (5-15); BILIRUBIN,TOTAL 0.9 mg/dL (0.2-1.0); Carbon Dioxide 26.4 mEq/L (21-32); Potassium 3.7 mEq/L (3.5-5.1); Total Protein 7.6 gm/dL (6.4-8.2)
[2017-05-27] MEDS ORDERED: PROTONIX 40 MG IV IV ONE ×2 (15:00→15:02)
[2017-05-27 21:09] LABS: BASOPHIL % 0.2 % (0.0-0.4); Eosinophil % 0.2 % (0.00-5.0); Granulocytes % 79.6 % (36.0-66.0); Lymphocytes % 15.2 % (24.0-44.0); Mean Cell Volume 91.4 fl (78-100); Mean Platelet Volume 9.5 fl (6-9.5); Monocytes % 4.8 % (0.0-12.0); Platelet Count 146 K/mm3 (150-450); Red Blood Count 3.38 M/mm3 (4.1-5.6)
[2017-05-27 21:10] LABS: Mean Corpuscular Hemoglobin 29.8 pg (26-32)
[2017-05-27] MEDS: LUMIGAN 0.01% 2.5 ML OP SCH (21:39)
[2017-05-27] MEDS: Alphagan P 0.15% OP SCH (21:40)
[2017-05-27] MEDS: Pepcid 20 MG PO SCH (21:43)
[2017-05-27] MEDS ORDERED: NON-FORMULARY ITEM (Ranitidine Hcl [Zantac] 150 MG) PO SCH (22:00)
[2017-05-28] MEDS: Sodium Chloride 0.9% 1000 ML 1,000 ML IV SCH (00:27)
[2017-05-28 00:43] LABS: Mean Cell Volume 91.5 fl (78-100); Mean Platelet Volume 9.2 fl (6-9.5); Platelet Count 139 K/mm3 (150-450); Red Blood Count 3.05 M/mm3 (4.1-5.6); Red Cell Distribution Width 14.9 % (11.5-14.0); White Blood Count 6.9 K/mm3 (4.0-10.5)
[2017-05-28 00:44] LABS: Mean Corpuscular Hemoglobin 30.1 pg (26-32)
[2017-05-28] MEDS: NORCO 5/325 MG PO PRN ×3 (02:18→22:41)
--- NOTE | 2017-05-28 09:22 | PCM.HP ---
History of Present Illness - Chief Complaint Chief Complaint: gi bleed History of Present Illness: is a 87 year old male with PMHx CVA and HTN who came to ER with GI bleeding yesterday. He was at home and had a large bloody stool. He also had several more in the ER. Last night he had a large bloody stool with syncope afterward (was caught by community development manager). He has been using the bedpan since and has had 2 bloody stools. He denies abdominal pain. Has been having increased lower back pain for the past 3d. He is on plavix at home. - Review of Systems Respiratory: Cough, Short Of Breath (recently tx for COPD exacerbation) Cardiac: Edema (chronic RLE) Genitourinary Symptoms: Other (rectal bleeding), No Hematuria Musculoskeletal: Back Pain All Other Systems: Reviewed and Negative Medications & Allergies Home Medications: Home Medication List Clopidogrel Bisulfate 75 mg [PLAVIX 75 MG Tablet] 75 mg PO DAILY 12/19/12 [History Confirmed 05/27/17] Bimatoprost 0.01% [Lumigan 0.01% 2.5 ml] 1 drop OP HS 03/30/13 [History Confirmed 05/27/17] Valsartan/Hydrochlorothiazide [Diovan Hct 320-12.5 mg Tab] 1 each PO DAILY 03/30 [History Confirmed 05/27/17] Brimonidine Tartrate [Alphagan P 0.15%] 1 drop OP BID 09/14/16 [History Confirmed 05/27/17] Multivit-Min/FA/Lycopen/Lutein [Centrum Silver Tablet] 1 each PO DAILY 05/27/17 [History Confirmed 05/27/17] Ranitidine HCl [Zantac] 150 mg PO BID 05/27/17 [History Confirmed 05/27/17] Allergies/Adverse Reactions: Allergies Allergy/AdvReac Type Severity Reaction Status Date / Time No Known Drug Allergies Allergy Verified 05/27/17 15:42 - Past Medical History Past Medical History: Yes Neurological History: No Pertinent History ENT History: Cataracts Cardiac History: No Pertinent History Respiratory History: No Pertinent History Endocrine Medical History: No Pertinent History Musculoskelatal History: Arthritis GI Medical History: No Pertinent History History: No Pertinent History Pyscho-Social History: No Pertinent History Male Reproductive Disorders: No Pertinent History Comment: Hx skin CA (melanoma), pt denies HTN, states he has a slow heart rate. - Past Surgical History Past Surgical History: Yes Neuro Surgical History: No Pertinent History Cardiac History: No Pertinent History Respiratory Surgery: No Pertinent History GI Surgical History: Appendectomy, Cholecystectomy, Hernia Repair Genitourinary Surgical Hx: No Pertinent History Musculskeletal Surgical Hx: No Pertinent History Male Surgical History: No Pertinent History Other Surgical History: skin cancer removed 8 yrs ago - Social History Smoking Status: Never smoker Exposure to second hand smoke: No Alcohol: None Drug Use: none - Physical Exam Vital Signs: Vital Signs - 24 hr Temp Pulse Resp BP Pulse Ox 05/28/17 07:28 94 L 05/28/17 07:00 98.3 F 52 L 18 118/57 99 05/28/17 03:53 98.2 F 62 16 94/55 98 05/28/17 02:00 98.3 F 58 L 96/51 05/27/17 23:51 97.9 F 59 L 15 97/55 97 05/27/17 20:00 98.0 F 64 16 110/59 94 L 05/27/17 19:19 93 L 05/27/17 17:00 97 05/27/17 16:50 93 L 05/27/17 15:53 98.7 F 55 L 18 135/63 95 05/27/17 15:03 93 L 05/27/17 14:28 58 L 18 123/70 96 05/27/17 13:41 97.4 F 77 20 153/75 93 L Oxygen-Last 24 hours O2 Percentage 2 Liters = 28% O2 Percentage 2 Liters = 28% O2 Percentage 2 Liters = 28% General Appearance: no apparent distress, alert Neurologic Exam: oriented x 3, cooperative Eye Exam: eyes nml inspection Ears, Nose, Throat Exam: moist mucous membranes Neck Exam: normal inspection, non-tender, No lymphadenopathy Respiratory Exam: normal breath sounds, lungs clear, No crackles/rales, No rhonchi, No wheezing Cardiovascular Exam: regular rate/rhythm, normal heart sounds, No murmur Gastrointestinal/Abdomen Exam: soft, normal bowel sounds, No tenderness, No distention, No mass, No guarding, No rebound Extremity Exam: swelling (RLE trace edema, LLE wnl) Skin Exam: normal color, warm, dry Results - Labs Lab/Micro Results: Lab Results-Last 24 Hours 05/27/17 05/27/17 05/28/17 Range/Units 17:13 21:06 00:39 WBC 9.0 6.9 (4.0-10.5) K/mm3 RBC 3.38 L 3.05 L (4.1-5.6) M/mm3 Hgb 11.3 L 10.1 L 9.2 L (12.5-18.0) gm/dl Hct 34.9 L 30.9 L 27.9 L (42-50) % MCV 91.4 91.5 (78-100) fl MCH 29.8 30.1 (26-32) pg MCHC 32.7 33.0 (32-36) g/dl RDW 15.0 H 14.9 H (11.5-14.0) % Plt Count 146 L 139 L (150-450) K/mm3 MPV 9.5 9.2 (6-9.5) fl Gran % 79.6 H (36.0-66.0) % Lymphocytes % 15.2 L (24.0-44.0) % Monocytes % 4.8 (0.0-12.0) % Eosinophils % 0.2 (0.00-5.0) % Basophils % 0.2 (0.0-0.4) % Basophils # 0.02 (0-0.4) - Other Procedures and Tests Respiratory Therapy 05/27/17 17:12 Oxygen NASAL CANNULA 2 lpm Assessment/Plan (1) GI bleed Current Visit: Yes Status: Acute Qualifiers: GI bleed type/associated pathology: unspecified gastrointestinal hemorrhage type Qualified Code(s): K92.2 - Gastrointestinal hemorrhage, unspecified Assessment & Plan: With symptom last night of syncope. Surgery to consult today. Pt is on plavix. Pt received 2 units of blood today. Code(s): K92.2 - GASTROINTESTINAL HEMORRHAGE, UNSPECIFIED (2) COPD (chronic obstructive pulmonary disease) Current Visit: Yes Status: Chronic Qualifiers: COPD type: emphysema Emphysema type: unspecified Qualified Code(s): J43.9 - Emphysema, unspecified Assessment & Plan: stable, lungs sound good here although his cough is persistent. Recent exacerbation was treated by me. (3) HTN (hypertension) Current Visit: No Status: Chronic Qualifiers: Hypertension type: essential hypertension Qualified Code(s): I10 - Essential (primary) hypertension Assessment & Plan: Some low BP here, holding BP med (ARB). Code(s): I10 - ESSENTIAL (PRIMARY) HYPERTENSION
[2017-05-28 09:48] LABS: ALBUMIN 2.4 g/dL (3.4-5.0); ALKALINE PHOSPHATASE 59 U/L (46-116); ANION GAP 12.8 MEQ/L (5-15); BLOOD UREA NITROGEN 34 mg/dL (9-20); CHLORIDE 112 mEq/L (98-107); Glucose 94 MG/DL (70-110); Potassium 3.8 mEq/L (3.5-5.1); SGOT/AST 19 U/L (15-37); SGPT/ALT 14 U/L (12-78); SODIUM 146 mEq/L (136-145)
[2017-05-28] MEDS ORDERED: HYDROCHLOROTHIAZIDE PO SCH (10:00)
[2017-05-28] MEDS ORDERED: NON-FORMULARY ITEM (Multivit-Min/Fa/Lycopen/Lutein [Centrum Silver Tablet] 1 EACH) PO SCH (10:00)
[2017-05-28] MEDS ORDERED: VALSARTAN PO SCH (10:00)
[2017-05-28] MEDS: hydroDIURIL 25 MG PO SCH (10:18)
[2017-05-28] MEDS: Pepcid 20 MG PO SCH ×2 (10:18→21:24)
[2017-05-28] MEDS: PROTONIX 40 MG IV IV SCH (10:18)
[2017-05-28] MEDS: THERAGRAN MULTIVITAMIN PO SCH (10:19)
[2017-05-28] MEDS: Alphagan P 0.15% OP SCH ×2 (10:20→21:25)
[2017-05-28] MEDS: DIOVAN 80 MG PO SCH (10:31)
[2017-05-28] MEDS ORDERED: Zofran 4 MG/2 ML VIAL IV PRN (11:07)
[2017-05-28] MEDS: LUMIGAN 0.01% 2.5 ML OP SCH (21:25)
[2017-05-29] MEDS: Sodium Chloride 0.9% 1000 ML 1,000 ML IV SCH ×3 (01:20→22:38)
[2017-05-29] MEDS: NORCO 5/325 MG PO PRN (06:43)
--- NOTE | 2017-05-29 09:55 | CONS ---
CONSULT DATE: 05/28/17 HISTORY OF PRESENT ILLNESS: The patient is an 87 y/o gentleman who has had a history of cerebrovascular accident in the past. Has been on Plavix apparently. Had some rectal bleeding yesterday. Was admitted yesterday. Dr. Hinds was consulted during the night and asked that I see the patient today. He denied any bloody stool this morning. Denies any abdominal pain. He did have a colonoscopy, but may have been a few years ago. PAST MEDICAL HISTORY: Otherwise, he has had history of cataracts, glaucoma, cerebrovascular accident, and hypertension. He has had some skin cancer in the past. PAST SURGICAL HISTORY: He had some skin cancer removed. He had bilateral inguinal hernias in the past he said, cholecystectomy in the past, and appendectomy in the past. HOME MEDICATIONS: Lumigan drops, Plavix, Diovan, Alphagan drops, Centrum Silver, and Zantac. ALLERGIES: NKDA. FAMILY HISTORY: Negative with regards to this specific problem. SOCIAL HISTORY: Denies smoking or alcohol abuse currently. REVIEW OF SYSTEMS: 12 systems reviewed. Again, he denies any nausea or vomiting. He denies any current abdominal pain. He did have some bright red rectal bleeding. Otherwise, denies any chest pain or palpitations. Otherwise, pertinent for as noted above. PHYSICAL EXAMINATION: Afebrile. Vital signs stable. Pulse is in the 50s and 60s. BP had been 94-110/55-59. GENERAL: No acute distress. HEENT: Sclerae nonicteric. NECK: No JVD. CHEST: Equal excursion. Nonlabored breathing. ABDOMEN: Soft, nontender, nondistended. EXTREMITIES: No significant edema. NEURO: Alert and oriented. Had a past history of cerebrovascular accident. Nursing staff reported his Hgb was 10 after transfusion. His Hgb was 9.2, WBC 6.9, platelets 139,000. Liver function tests were unremarkable. I don't see whereas they did any x-ray studies. I do not see those on the Emergency Room records or radiology records in the chart. IMPRESSION: 1. RECTAL BLEEDING, UNCLEAR ETIOLOGY. Could be anything from diverticular disease to colitis, neoplasia, or other etiology. Either way, no emergent surgery is necessary at this point. He is hemodynamically stable. Wasn't having bloody bowel movements this morning. He just took his Plavix recently. Do feel he would benefit from colonoscopy this admission, but likely would wait an extra couple days to lessen the effect of the Plavix rather than try to scope him tomorrow as if any intervention is necessary, it would be safer to wait an extra day. Therefore, unless he has a dramatic increase in bloody stools today, would plan on bowel prepping him tomorrow. Keep him on clear liquids in the meantime. Likely plan on colonoscopy on Thursday. General risks of bleeding; infection; small risk of bowel injury or perforation possibly requiring open procedure; ongoing morbidity; small risk of missed or nondiagnosis or inability to diagnose the etiology of his bleeding; general risk of anesthesia or sedation; risk of cardiopulmonary event or stroke; risk of bowel prep, but not limited to. The patient and family understand and agree to the planned procedure. Will set him up for endoscopy in a couple of days unless he changes physiologically prior to that. Thank you for the consult.
[2017-05-29] MEDS: DIOVAN 80 MG PO SCH (10:10)
[2017-05-29] MEDS: THERAGRAN MULTIVITAMIN PO SCH (10:10)
[2017-05-29] MEDS: hydroDIURIL 25 MG PO SCH (10:10)
[2017-05-29] MEDS: Alphagan P 0.15% OP SCH ×2 (10:11→22:38)
[2017-05-29] MEDS: Pepcid 20 MG PO SCH ×2 (10:11→22:38)
[2017-05-29] MEDS: PROTONIX 40 MG IV IV SCH (10:11)
[2017-05-29 11:01] LABS: Mean Cell Volume 91.3 fl (78-100); Mean Corpuscular Hemoglobin 29.8 pg (26-32); Mean Platelet Volume 9.5 fl (6-9.5); Platelet Count 113 K/mm3 (150-450); Red Blood Count 3.22 M/mm3 (4.1-5.6); Red Cell Distribution Width 14.8 % (11.5-14.0); White Blood Count 7.2 K/mm3 (4.0-10.5)
[2017-05-29 11:10] LABS: ANION GAP 10.5 MEQ/L (5-15); BLOOD UREA NITROGEN 22 mg/dL (9-20); CHLORIDE 111 mEq/L (98-107); Carbon Dioxide 26.5 mEq/L (21-32); Glucose 96 MG/DL (70-110); Potassium 3.7 mEq/L (3.5-5.1); SODIUM 144 mEq/L (136-145)
--- NOTE | 2017-05-29 13:23 | PCM.NOTE ---
Date and Time: 05/29/17 1318 Subjective Assessment: Pt with no more bloody stools. To start colon prep this afternoon. Denies pain. - Review of Systems Constitutional: No Fever Respiratory: Cough Objective Exam General Appearance: no apparent distress, alert Neurologic Exam: oriented x 3, cooperative Skin Exam: warm, dry, rash Ears, Nose, Throat Exam: moist mucous membranes Respiratory Exam: diminished breath sounds, wheezing (scattered), No crackles/ rales, No rhonchi Cardiovascular Exam: regular rate/rhythm, normal heart sounds, No murmur Gastrointestinal/Abdomen Exam: soft, normal bowel sounds, No tenderness, No distention, No mass, No guarding, No rebound Extremity Exam: No pedal edema, No swelling OBJECTIVE DATA Vital Signs: Vital Signs - 24 hr Temp Pulse Resp BP Pulse Ox 05/29/17 10:00 128/61 05/29/17 07:01 97.8 F 68 20 142/65 91 L 05/29/17 03:00 98.1 F 53 L 16 137/64 94 L 05/28/17 23:00 97.9 F 54 L 14 119/58 92 L 05/28/17 20:11 61 24 93 L 05/28/17 19:00 98.3 F 52 L 20 134/63 97 05/28/17 15:00 98.1 F 51 L 18 112/53 97 05/28/17 13:57 93 L Pain Assessment - Last Documented Pain Intensity 8 Pain Scale Used 0-10 Pain Scale Intake and Output: Intake & Output 05/27/17 05/28/17 05/29/17 05/30/17 11:59 11:59 11:59 11:59 Intake Total 2398 0 Output Total 1050 Balance 1348 0 Weight 80.921 kg Lab Results: Lab Results-Last 24 Hours 05/29/17 05/29/17 Range/Units 10:36 10:50 WBC 7.2 (4.0-10.5) K/mm3 RBC 3.22 L (4.1-5.6) M/mm3 Hgb 9.6 L (12.5-18.0) gm/dl Hct 29.4 L (42-50) % MCV 91.3 (78-100) fl MCH 29.8 (26-32) pg MCHC 32.7 (32-36) g/dl RDW 14.8 H (11.5-14.0) % Plt Count 113 L (150-450) K/mm3 MPV 9.5 (6-9.5) fl Sodium 144 (136-145) mEq/L Potassium 3.7 (3.5-5.1) mEq/L Chloride 111 H (98-107) mEq/L Carbon Dioxide 26.5 (21-32) mEq/L Anion Gap 10.5 (5-15) MEQ/L BUN 22 H (9-20) mg/dL Creatinine 1.01 (0.55-1.30) mg/dl Estimated GFR > 60 ML/MIN Glucose 96 (70-110) MG/DL Calcium 7.8 L (8.5-10.1) mg/dL Multi-Disciplinary Progress Notes: Multi-Disciplinary Progress Notes 05/29/17 10:18 Case Management Note by Lainey Garrison DISCHARGE PLAN REVEIWED WITH PATIENT AND ALSO HIS SON. HE NORMALLY LIVES AT HOME WITH HIS , WHO HAS HHC. SON STATES HE CHECKS ON THEM MORE THAN ONCE DAILY. DENIES NEED FOR ANY ADDITIONAL SERVICES OR DME'S AT HOME. PATIENT DID SIGN HIS IMPORTANT PAPERS FROM [employer] AND VERBALIZED UNDERSTANDING OF HIS RIGHTS. PLAN IS TO HAVE SCOPE TOMORROW AND GO HOME TO PREEPISODIC LEVEL OF FUNCTION. WILL CONTINUE TO FOLLOW FOR ALL D/C NEEDS. Initialized on 05/29/17 10:18 - END OF NOTE 05/28/17 20:25 Case Management Note by Lainey Garrison DISCHARGE PLAN REVIEWED. PT NORMALLY LIVES AT HOME WITH SPOUSE, NO DME. REFUSES LAY CAREGIVER. PLAN TO RETURN HOME TO PRE EPISODIC LEVEL OF FUNCTION. WILL CONTINUE TO MONITOR FOR ALL D/C NEEDS. Initialized on 05/28/17 20:25 - END OF NOTE Assessment/Plan (1) GI bleed Current Visit: Yes Status: Acute Qualifiers: GI bleed type/associated pathology: unspecified gastrointestinal hemorrhage type Qualified Code(s): K92.2 - Gastrointestinal hemorrhage, unspecified Assessment & Plan: Bright red blood per rectum; has slowed. Colonoscopy tomorrow with surgery, thank you. Code(s): K92.2 - GASTROINTESTINAL HEMORRHAGE, UNSPECIFIED (2) COPD (chronic obstructive pulmonary disease) Current Visit: Yes Status: Chronic Qualifiers: COPD type: emphysema Emphysema type: unspecified Qualified Code(s): J43.9 - Emphysema, unspecified Assessment & Plan: We had begun treating for exacerbation outpatient; I was under the impression he had had a chance to complete the regimen, however he was on antibiotics less than a week. Will restart IV antibiotics for now, transitioning to PO after the colonoscopy. (3) HTN (hypertension) Current Visit: No Status: Chronic Qualifiers: Hypertension type: essential hypertension Qualified Code(s): I10 - Essential (primary) hypertension Assessment & Plan: stable here. Code(s): I10 - ESSENTIAL (PRIMARY) HYPERTENSION
[2017-05-29] MEDS ORDERED: Golytely Solution 4000 ML PO ONE (15:00)
[2017-05-29] MEDS: LUMIGAN 0.01% 2.5 ML OP SCH (22:39)
[2017-05-30] MEDS: Sodium Chloride 0.9% 1000 ML 1,000 ML IV SCH ×2 (08:25→18:24)
[2017-05-30] MEDS: Pepcid 20 MG PO SCH ×2 (09:38→22:48)
[2017-05-30] MEDS: hydroDIURIL 25 MG PO SCH (09:39)
[2017-05-30] MEDS: PROTONIX 40 MG IV IV SCH (09:39)
[2017-05-30] MEDS: DIOVAN 80 MG PO SCH (09:39)
[2017-05-30] MEDS: ROCEPHIN 1 Gm-D5w 50 ml Bag** 1 G/50 ML IVPB IV SCH (09:39)
[2017-05-30] MEDS: Alphagan P 0.15% OP SCH ×2 (09:40→22:49)
[2017-05-30] MEDS ORDERED: Zithromax 500 MG/ 250 ML NaCl Premix 500 MG/250 ML IVPB IV SCH (10:00)
[2017-05-30] MEDS: THERAGRAN MULTIVITAMIN PO SCH (10:48)
[2017-05-30] MEDS ORDERED: DIPRIVAN 200 MG/20 ML IV ONE (12:29)
--- NOTE | 2017-05-30 13:51 | PCM.NOTE ---
Date and Time: 05/30/17 1348 Subjective Assessment: Patient reports he was told his colonoscopy was normal. Dictation for surgeon not available yet. Patient reports no more blood from rectum and no pain. He states he is not usually on oxygen. No concerns. - Review of Systems Constitutional: No Symptoms Eyes: No Symptoms Ears, Nose, & Throat: No Symptoms Respiratory: No Symptoms Cardiac: No Symptoms Abdominal/Gastrointestinal: No Symptoms Genitourinary Symptoms: No Symptoms Musculoskeletal: No Symptoms Skin: No Symptoms Objective Exam General Appearance: no apparent distress, alert Neurologic Exam: alert, cooperative, normal mood/affect Skin Exam: normal color, warm, dry, No rash Cardiovascular Exam: regular rate/rhythm, normal heart sounds, No murmur, No friction rub, No gallop Gastrointestinal/Abdomen Exam: soft, normal bowel sounds, No tenderness, No distention, No mass, No guarding Extremity Exam: normal inspection, other (no c/c/e) OBJECTIVE DATA Vital Signs: Vital Signs - 24 hr Temp Pulse Resp BP Pulse Ox 05/30/17 12:12 97.7 F 54 L 18 126/60 95 05/30/17 11:38 97.8 F 79 20 115/65 95 05/30/17 08:00 98.8 F 59 L 20 170/72 96 05/30/17 07:43 98.8 F 59 L 20 170/72 96 05/30/17 04:00 98.5 F 59 L 15 154/68 96 05/30/17 00:00 97.8 F 58 L 20 134/63 96 05/29/17 21:02 98 05/29/17 21:00 53 L 16 98 05/29/17 20:28 98.4 F 57 L 16 116/57 98 05/29/17 17:32 98.8 F 61 20 142/67 99 05/29/17 14:00 98.8 F 61 20 142/67 99 Oxygen-Last 24 hours O2 Percentage 2 Liters = 28% O2 Percentage 2 Liters = 28% O2 Percentage 2 Liters = 28% O2 Percentage 2 Liters = 28% O2 Percentage 2 Liters = 28% O2 Percentage 2 Liters = 28% O2 Percentage 2 Liters = 28% Pain Assessment - Last Documented Pain Intensity 0 Pain Scale Used 0-10 Pain Scale Intake and Output: Intake & Output 05/28/17 05/29/17 05/30/1726/17 06:59 06:59 06:59 06:59 Intake Total 2358 3824 720 Output Total 750 300 350 Balance 1608 3524 370 Weight 80.921 kg 86.001 kg 86.001 kg Assessment/Plan (1) GI bleed Current Visit: Yes Status: Acute Qualifiers: GI bleed type/associated pathology: unspecified gastrointestinal hemorrhage type Qualified Code(s): K92.2 - Gastrointestinal hemorrhage, unspecified Assessment & Plan: S/p colonoscopy today. Awaiting surgeon's report. Try to wean off oxygen. Code(s): K92.2 - GASTROINTESTINAL HEMORRHAGE, UNSPECIFIED (2) COPD (chronic obstructive pulmonary disease) Current Visit: Yes Status: Chronic Qualifiers: COPD type: emphysema Emphysema type: unspecified Qualified Code(s): J43.9 - Emphysema, unspecified Assessment & Plan: Finish antibiotics per Dr. Medeiros's recommendation. (3) HTN (hypertension) Current Visit: No Status: Chronic Qualifiers: Hypertension type: essential hypertension Qualified Code(s): I10 - Essential (primary) hypertension Assessment & Plan: Continue current medication. Well controlled. Code(s): I10 - ESSENTIAL (PRIMARY) HYPERTENSION
[2017-05-30] MEDS: NORCO 5/325 MG PO PRN (21:05)
[2017-05-30] MEDS: LUMIGAN 0.01% 2.5 ML OP SCH (22:49)
[2017-05-31] MEDS: Sodium Chloride 0.9% 1000 ML 1,000 ML IV SCH (03:39)
[2017-05-31 07:08] VITALS: BP 126/80
[2017-05-31] MEDS: Alphagan P 0.15% OP SCH (09:24)
[2017-05-31] MEDS: THERAGRAN MULTIVITAMIN PO SCH (09:24)
[2017-05-31] MEDS: hydroDIURIL 25 MG PO SCH (09:24)
[2017-05-31] MEDS: Pepcid 20 MG PO SCH (09:24)
[2017-05-31] MEDS: PROTONIX 40 MG IV IV SCH (09:24)
[2017-05-31] MEDS: DIOVAN 80 MG PO SCH (09:25)
[2017-05-31] MEDS: ROCEPHIN 1 Gm-D5w 50 ml Bag** 1 G/50 ML IVPB IV SCH (09:26)
[2017-05-31] MEDS: NORCO 5/325 MG PO PRN (09:48)
--- NOTE | 2017-05-31 10:01 | PCM.DCORD ---
- Discharge Discharge Date: 05/31/17 Disposition: Home, Self-Care Condition: Good Prescriptions: New Albuterol Sulfate [Albuterol Sulfate Hfa] 2 puffs IH Q4H PRN #1 [id number] PRN Reason: Shortness Of Breath/Wheezing Continue Clopidogrel Bisulfate 75 mg [PLAVIX 75 MG Tablet] 75 mg PO DAILY Valsartan/Hydrochlorothiazide [Diovan Hct 320-12.5 mg Tab] 1 each PO DAILY Bimatoprost 0.01% [Lumigan 0.01% 2.5 ml] 1 drop OP HS Brimonidine Tartrate [Alphagan P 0.15%] 1 drop OP BID Ranitidine HCl [Zantac] 150 mg PO BID Multivit-Min/FA/Lycopen/Lutein [Centrum Silver Tablet] 1 each PO DAILY Additional Instructions: Resume the antibiotics that you were taking at home for your COPD and finish these. Follow up with: ADELAIDA JANSEN [COURTESY STAFF] - 1 Week TANIYA MADERA [Primary Care Provider] -
[2017-05-31 10:21] VITALS: PULSE 45
[2017-05-31 11:13] VITALS: O2SAT 91
--- NOTE | 2017-06-01 11:03 | OP ---
SURGERY DATE/TIME: 05/30/2017 1117 PREOPERATIVE DIAGNOSIS: History of rectal bleeding. POSTOPERATIVE DIAGNOSES: 1) No active bleeding. 2) Somewhat limited bowel prep limiting exam. 3) Diverticulosis (question source of recent bleeding but no active bleeding now). 4) Small internal and external hemorrhoids. 5) Small raised lesions cecum and sigmoid colon versus hyperplastic lesion. 6) Flat small polyp cecum. PROCEDURES: 1) Colonoscopy to cecum with hot biopsy piecemeal removal of flat small cecal polyp removed with hot biopsy forceps in piecemeal fashion. 2) Hot biopsy of smaller second raised lesion versus hyperplastic lesion of cecum. 3) Hot biopsy removal small raised sigmoid colon lesion versus hyperplastic lesion. SURGEON: Dr. Walker Hidalgo. ANESTHESIA: MAC. ESTIMATED BLOOD LOSS: Minimal. INDICATIONS: As noted above. Risks and benefits explained in detail but not limited to and consent obtained. DESCRIPTION OF PROCEDURE AND FINDINGS: The patient is taken to the operating room. MAC anesthesia introduced. After official time out and no disagreement with planned procedure, digital rectal exam did not reveal any rectal masses. He did have some small internal and external hemorrhoids. Video colonoscope inserted and passed up through the colon. He had a large amount of liquidy stool this did limit the exam. With suction and irrigating as well as possible but did limit the exam for small lesions. The scope was slowly and carefully navigated with aide of external pressure and positioning on his back and external pressure, the scope was able to be passed around to the right lower quadrant with palpation and visualization of the valve area confirming the location and this area is felt to be the cecum. There was a flat polyp that required piecemeal removal with very brief bursts of cautery and hot biopsy forceps. The base appeared to be viable. There was a scant ooze that was watched for a few seconds and appeared to have good hemostasis. There was a smaller raised lesion versus hyperplastic lesion removed with hot biopsy forceps. Good hemostasis noted. The scope is slowly and carefully withdrawn. He did have pancolonic diverticulosis and diverticula in the proximal ascending colon cecal area. Otherwise the scope slowly and carefully withdrawn. No signs of any active bleeding or old blood in the colon. Again, the prep did limit the exam for very small lesions. The scope was able to be pulled back to the transverse colon. Small raised lesion versus hyperplastic lesion versus early polyp removed with hot biopsy forceps and brief burst of cautery. Good hemostasis noted. Otherwise he had some small internal and external hemorrhoids. Biopsy sites appeared to have adequate hemostasis given multiple biopsies I felt if okay with is medical physician to hold the aspirin, NSAID and Plavix for a week if okay with his medical doctor to decrease the risk of his bleeding. Otherwise no signs of any large polyps, masses or obstructing lesions. There were no signs of any active or old blood in the colon. Question if he had some bleeding from diverticular source but no other obvious etiology of bleeding noted and no active bleeding currently. Findings discussed with the family out in the waiting. He was transferred back to the floor in stable condition.
--- NOTE | 2017-06-03 13:31 | DS ---
DISCHARGE DIAGNOSES: 1) RECTAL BLEEDING. 2) INTERNAL AND EXTERNAL HEMORRHOIDS. 3) ANEMIA. 4) CHRONIC OBSTRUCTIVE PULMONARY DISEASE. 5) HYPERTENSION. 6) HISTORY OF CEREBROVASCULAR ACCIDENT. DISCHARGE PHYSICAL EXAMINATION: VITALS: Temperature current 98.0F, temperature max 98.8F, heart rate 51 to 58, respiratory rate 18 to 20, blood pressure 116 to 132 over 62 to 88. Oxygen saturation 96 to 97% on 2 liters nasal cannula. GENERAL: The patient is a pleasant talkative man sitting up in no acute distress. CVS: He has a regular rate and rhythm. No murmurs, gallops or rubs are appreciated. CHEST: Scattered wheezes at the bases. Equal breath sounds. No crackles. No retractions. ABDOMEN: Soft, nontender, nondistended with normal bowel sounds. EXTREMITIES: No clubbing, cyanosis or edema. SKIN: Warm, dry and intact. HOSPITAL COURSE: 1) RECTAL BLEEDING: He had a colonoscopy yesterday with a general surgeon who reported internal and external hemorrhoids with cecal polyp, small sigmoid lesion and diverticula. The patient reports he has not had any further rectal bleeding for the last two days. His Plavix has been held during the hospitalization. 2) INTERNAL AND EXTERNAL HEMORRHOIDS: He is to follow up with his general surgeon as an outpatient. 3) ANEMIA: Dr. Medeiros noted that he was transfused with 2 units of blood on 05/28/2017. It looks like his hemoglobin at that time was 9.2. 4) CHRONIC OBSTRUCTIVE PULMONARY DISEASE: He was continued on antibiotics here in the hospital. The patient reports he has antibiotics left at home and he can finish those at home. I am also giving a prescription for Albuterol inhaler 2 puffs every four hours as needed for wheezing. 5) HYPERTENSION: His blood pressure is currently well controlled on his home antihypertensive. 6) HISTORY OF CVA: I discussed with the patient that we need to restart his Plavix to prevent further problems with transient ischemic attack or strokes in the future so will restart this and have him follow up with his primary care physician, Dr. Medeiros.
== END 2017-05-31 12:30 | disposition home or self-care (01) | DRG 379 ==
LOC: ED 13:29 → MED SURG 15:14 → OBSVTOIN 05-28 09:17
PROVIDERS: ADMIT Family Medicine; ATTEND Family Medicine
PROC: 0DBH8ZX Excision of Cecum, Via Natural or Artificial Opening Endoscopic, Diagnostic (ICD-10-PCS; principal; 2017-05-30)
PROC: 0DBN8ZX Excision of Sigmoid Colon, Via Natural or Artificial Opening Endoscopic, Diagnostic (ICD-10-PCS; 2017-05-30)
DX: K62.5 Hemorrhage of anus and rectum (principal); K64.4 Residual hemorrhoidal skin tags; K64.8 Other hemorrhoids; K92.2 Gastrointestinal hemorrhage, unspecified; J44.9 Chronic obstructive pulmonary disease, unspecified; J43.9 Emphysema, unspecified; I10 Essential (primary) hypertension; Z86.73 Personal history of transient ischemic attack (TIA), and cerebral infarction without residual deficits; K63.5 Polyp of colon; K63.9 Disease of intestine, unspecified; K57.90 Diverticulosis of intestine, part unspecified, without perforation or abscess without bleeding; D64.9 Anemia, unspecified; M19.90 Unspecified osteoarthritis, unspecified site; Z79.899 Other long term (current) drug therapy; Z85.820 Personal history of malignant melanoma of skin
CPT/HCPCS: 00810; 36000; 36415; 36430; 80048; 80053; 82272; 85014; 85018; 85025; 85027; 85610; 85730; 86850; 86900; 86901; 86922; 88305; 93005; 93268; 94760; 96374; 99100; 99285; G0378; J0696; J2704; P9016; A9270-GY

== ENCOUNTER 2017-08-30 16:22 | Emergency (ER) | payer MEDICARE, OTHER ==
[2017-08-30] MEDS ORDERED: Sodium Chloride 0.9% 1000 ML 1,000 ML ONE (17:58)
[2017-08-30] MEDS ORDERED: Sodium Chloride 0.9% 1000 ML 1,000 ML IV SCH (18:00)
[2017-08-30] MEDS ORDERED: TYLENOL EXTRA STRENGTH 500 MG PO STA (18:34)
--- NOTE | 2017-08-30 18:37 | ERPHSYRPT ---
- History of Present Illness Time Seen by Provider: 08/30/17 18:32 Source: patient, family Exam Limitations: no limitations Patient Subjective Stated Complaint: aching all over and cough since last night Triage Nursing Assessment: ambulated to room per self. skin w/d, color normal, resp easy. occasional dry cough noted. Physician History: The patient is an 87-year-old male with his son complaining of a sudden onset of muscle aches, fever, and cough that began last night. Today he had loose stools and vomited once. He did receive his influenza vaccination this year. He has not taken ibuprofen or Tylenol. His past medical history significant for TIAs, hypertension, GERD, BPH, and pancreatitis. Timing/Duration: yesterday Cough Quality/Degree: moderate, dry cough Possible Cause: no prior episodes Modifying Factors: Improves With: coughing Associated Symptoms: fever, chills, cough, muscle aches Allergies/Adverse Reactions: No Known Drug Allergies Allergy (Verified 08/30/17 16:47) Home Medications: Clopidogrel Bisulfate 75 mg [PLAVIX 75 MG Tablet] 75 mg PO DAILY 12/19/12 [History] Bimatoprost 0.01% [Lumigan 0.01% 2.5 ml] 1 drop OP HS 03/30/13 [History] Valsartan/Hydrochlorothiazide [Diovan Hct 320-12.5 mg Tab] 1 each PO DAILY 03/30 [History] Brimonidine Tartrate [Alphagan P 0.15%] 1 drop OP BID 09/14/16 [History] Multivit-Min/FA/Lycopen/Lutein [Centrum Silver Tablet] 1 each PO DAILY 05/27/17 [History] Ranitidine HCl [Zantac] 150 mg PO BID 05/27/17 [History] Tamsulosin HCl 0.4 mg [Flomax 0.4 MG] 0.4 mg PO DAILY 08/30/17 [History] Hx Tetanus, Diphtheria Vaccination/Date Given: No Hx Influenza Vaccination/Date Given: Yes Hx Pneumococcal Vaccination/Date Given: Yes - Review of Systems Constitutional: Chills Eyes: No Symptoms Ears, Nose, & Throat: No Symptoms Respiratory: Cough Cardiac: No Chest Pain, No Edema, No Syncope Abdominal/Gastrointestinal: Vomiting, Diarrhea, No Abdominal Pain Genitourinary Symptoms: No Dysuria Musculoskeletal: Myalgias Skin: No Rash Neurological: No Dizziness, No Focal Weakness, No Sensory Changes Psychological: No Symptoms Endocrine: No Symptoms Hematologic/Lymphatic: No Symptoms Immunological/Allergic: No Symptoms All Other Systems: Reviewed and Negative - Past Medical History Pertinent Past Medical History: Yes Neurological History: No Pertinent History ENT History: Cataracts Cardiac History: No Pertinent History Respiratory History: No Pertinent History Endocrine Medical History: No Pertinent History Musculoskeletal History: Arthritis GI Medical History: No Pertinent History History: No Pertinent History Psycho-Social History: No Pertinent History Male Reproductive Disorders: No Pertinent History Other Medical History: Hx skin CA (melanoma), pt denies HTN, states he has a slow heart rate. - Past Surgical History Past Surgical History: Yes Neuro Surgical History: No Pertinent History Cardiac: No Pertinent History Respiratory: No Pertinent History Gastrointestinal: Appendectomy, Cholecystectomy, Hernia Repair Genitourinary: No Pertinent History Musculoskeletal: No Pertinent History Male Surgical History: No Pertinent History Other Surgical History: skin cancer removed 8 yrs ago - Social History Smoking Status: Never smoker Exposure to second hand smoke: No Drug Use: none Patient Lives Alone: No - Nursing Vital Signs Nursing Vital Signs: Initial Vital Signs Temperature 98.8 F 08/30/17 16:42 Pulse Rate 68 08/30/17 16:42 Respiratory Rate 20 08/30/17 16:42 Blood Pressure 125/60 08/30/17 16:42 O2 Sat by Pulse Oximetry 94 L 08/30/17 16:42 Pain Scale Pain Intensity 0 - Physical Exam General Appearance: mild distress Eye Exam: PERRL/EOMI, eyes nml inspection Ears, Nose, Throat Exam: normal ENT inspection, TMs normal, pharynx normal, moist mucous membranes Neck Exam: normal inspection, non-tender, supple, full range of motion Respiratory Exam: normal breath sounds, lungs clear, No respiratory distress Cardiovascular Exam: regular rate/rhythm, normal heart sounds Gastrointestinal/Abdomen Exam: soft, No tenderness Rectal Exam: not done Back Exam: normal inspection, No CVA tenderness, No vertebral tenderness Extremity Exam: normal inspection, normal range of motion Neurologic Exam: alert, oriented x 3, cooperative, normal mood/affect, sensation nml, No motor deficits Skin Exam: normal color, warm, dry, No rash Lymphatic Exam: No adenopathy SpO2 Interpretation: normal SpO2: 96 Oxygen Delivery: Room Air - Radiology Exams Chest X-ray Interpretation: Interpreted by me, Negative (no change comp to CXR .) Ordered Tests: Active Orders 24 hr Category Date Time Status IV Insertion STAT Care 08/30/17 16:53 Active CHEST 2 VIEWS (PA AND LAT) Stat Exams 08/30/17 18:33 Taken BMP Stat Lab 08/30/17 16:40 Completed CBC W DIFF Stat Lab 08/30/17 16:40 Completed Lactic Acid Stat Lab 08/30/17 18:32 Ordered Manual Differential NC Stat Lab 08/30/17 16:40 Completed Medication Summary Generic Name Dose Route Start Last Admin Trade Name Freq PRN Reason Stop Dose Admin Sodium Chloride 1,000 mls @ 100 mls/hr 08/30/17 18:00 08/30/17 18:00 Sodium Chloride 0.9% 1000 Ml IV 09/29/17 17:59 100 mls/hr .Q10H VILMA Administration Discontinued Medications Generic Name Dose Route Start Last Admin Trade Name Freq PRN Reason Stop Dose Admin Acetaminophen 1,000 mg 08/30/17 18:34 08/30/17 18:39 Tylenol Extra Strength 500 Mg PO 08/30/17 18:35 1,000 mg STAT STA Administration Acetaminophen Confirm 08/30/17 18:38 Tylenol Extra Strength 500 Mg Administered 08/30/17 18:39 Dose 1,000 mg .ROUTE .STK-MED ONE Oseltamivir Phosphate 75 mg 08/30/17 19:07 08/30/17 19:21 Tamiflu 75mg Capsule PO 08/30/17 19:08 75 mg STAT ONE Administration Oseltamivir Phosphate Confirm 08/30/17 19:10 Tamiflu 75mg Capsule Administered 08/30/17 19:11 Dose 75 mg PO .STK-MED ONE Lab/Rad Data: Laboratory Result Diagrams 08/30/17 16:40 08/30/17 16:40 Laboratory Results 08/30/17 08/30/17 08/30/17 Range/Units 18:20 16:40 16:40 WBC 8.7 (4.0-10.5) K/mm3 RBC 4.22 (4.1-5.6) M/mm3 Hgb 12.1 L (12.5-18.0) gm/dl Hct 36.2 L (42-50) % MCV 85.8 (78-100) fl MCH 28.6 (26-32) pg MCHC 33.4 (32-36) g/dl RDW 14.3 H (11.5-14.0) % Plt Count 165 (150-450) K/mm3 MPV 10.2 H (6-9.5) fl Segmented Neutrophils 85 H (36.-66.) % Band Neutrophils 9 H (0.0-2.0) % Lymphocytes (Manual) 6 L (24-44) % Differential Comment NORMAL Dohle Bodies 1+ Platelet Estimate NORMAL (NORMAL) Sodium 138 (136-145) mEq/L Potassium 3.9 (3.5-5.1) mEq/L Chloride 101 (98-107) mEq/L Carbon Dioxide 22.7 (21-32) mEq/L Anion Gap 17.9 H (5-15) MEQ/L BUN 20 (9-20) mg/dL Creatinine 1.33 H (0.55-1.30) mg/dl Estimated GFR 54 ML/MIN Glucose 123 H (70-110) MG/DL Calcium 8.5 (8.5-10.1) mg/dL Influenza Type A Ag NEGATIVE (NEGATIVE) Influenza Type B Ag POSITIVE (NEGATIVE) RSV (PCR) NEGATIVE (Negative) - Progress Progress: improved Counseled pt/family regarding: lab results, diagnosis, need for follow-up, rad results - Departure Time of Disposition: 19:06 Departure Disposition: Home Clinical Impression: Influenza B Condition: Stable Critical Care Time: No Referrals: TANIYA MADERA [Primary Care Provider] - Additional Instructions: You have an influenza B infection. You were given Tylenol 1000 mg orally and fluids by IV in the ER. You were also given Tamiflu 75 mg orally. Continue to take Tamiflu 75 mg twice a day for 5 days. Follow-up tomorrow. Prescriptions: Oseltamivir Phosphate [Tamiflu] 75 mg PO BID #9 capsule
[2017-08-30] MEDS ORDERED: TYLENOL EXTRA STRENGTH 500 MG ONE (18:38)
[2017-08-30 18:44] LABS: Hematocrit 36.2 % (42-50); Hemoglobin 12.1 gm/dl (12.5-18.0); Mean Cell Volume 85.8 fl (78-100); Mean Corpuscular Hgb Concent. 33.4 g/dl (32-36); Mean Platelet Volume 10.2 fl (6-9.5); Platelet Count 165 K/mm3 (150-450); Red Blood Count 4.22 M/mm3 (4.1-5.6); Red Cell Distribution Width 14.3 % (11.5-14.0); White Blood Count 8.7 K/mm3 (4.0-10.5)
[2017-08-30 18:47] LABS: ANION GAP 17.9 MEQ/L (5-15); Calcium 8.5 mg/dL (8.5-10.1); Carbon Dioxide 22.7 mEq/L (21-32); Creatinine 1 1.33 mg/dl (0.55-1.30); Potassium 3.9 mEq/L (3.5-5.1)
[2017-08-30 18:57] LABS: INFLUENZA A NEGATIVE (NEGATIVE); INFLUENZA B POSITIVE (NEGATIVE); RESPIRATORY SYNCTIAL VIRUS NEGATIVE (Negative)
[2017-08-30 19:01] LABS: Mean Corpuscular Hemoglobin 28.6 pg (26-32)
[2017-08-30 19:07] VITALS: O2SAT 96
[2017-08-30] MEDS ORDERED: Tamiflu 75MG Capsule PO ONE ×2 (19:07→19:10)
[2017-08-30] MEDS ORDERED: Sodium Chloride 0.9% 1000 ML 0 ML ONE (19:10)
[2017-08-30 19:21] LABS: BAND 9 % (0.0-2.0); Dohle Bodies 1+; Lymphocytes 6 % (24-44); Neutrophils 85 % (36.-66.); Platelet Estimate NORMAL (NORMAL); Total Cells Counted 100
[2017-08-30 19:27] VITALS: BP 107/54; PULSE 66
--- NOTE | 2017-08-30 21:09 | XRAY ---
Indication: Cough, congestion, and weakness. Comparison: December 03, 2016. AP/lateral chest again hyperinflated with minimal bibasilar atelectasis/scarring. No focal infiltrate, consolidation, or large effusion. Heart remains enlarged. Vascularity normal. Bony thorax intact again with mild osteopenia and degenerative changes. Impression: Stable cardiomegaly. Again negative for acute pneumonic process or CHF.
== END 2017-08-30 19:44 | disposition home or self-care (01) ==
LOC: ED 16:22
DX: J11.1 Influenza due to unidentified influenza virus with other respiratory manifestations (principal); R05 Cough; R50.9 Fever, unspecified; Z79.899 Other long term (current) drug therapy
CPT/HCPCS: 36000; 36415; 71046; 80048; 85025; 87631; 96360; 96361; 99283; 99284; A9270-GY

== ENCOUNTER 2017-10-09 06:47 | Emergency (ER) | payer MEDICARE, OTHER ==
--- NOTE | 2017-10-09 07:20 | ERPHSYRPT ---
- History of Present Illness Time Seen by Provider: 10/09/17 07:13 Source: patient Patient Subjective Stated Complaint: bent over to put shoe on and woke up on the floor, right ribs hurt, may have hit head, son concerned with a possible stroke Triage Nursing Assessment: Pt A&O x3, lungs clear, pain on palpation to right ribs below breast, PERRL, pulses good, strength good, pusles normal, doesn't appear to be in any distress, vitals wnl Physician History: CC: passed out Hx: 87 y/o patient of Dr Medeiros. Prior hx of stroke. He was fine last night. He awoke and bent over to put his shoe on. He must of passed out as he woke up on the floor. He has some right rib pain. No neck or back pain. No headache. No shortness of breath. No abd pain. No N/T/W. He was worried about a stroke so came to ER. No V/D. His is in the hospital at [facility]. Small abrasion to left elbow. Tetanus updated last year. Timing/Duration: today Severity: mild Allergies/Adverse Reactions: No Known Drug Allergies Allergy (Verified 10/09/17 07:01) Home Medications: Clopidogrel Bisulfate 75 mg [PLAVIX 75 MG Tablet] 75 mg PO DAILY 12/19/12 [History] Bimatoprost 0.01% [Lumigan 0.01% 2.5 ml] 1 drop OP HS 03/30/13 [History] Valsartan/Hydrochlorothiazide [Diovan Hct 320-12.5 mg Tab] 1 each PO DAILY 03/30 [History] Brimonidine Tartrate [Alphagan P 0.15%] 1 drop OP BID 09/14/16 [History] Multivit-Min/FA/Lycopen/Lutein [Centrum Silver Tablet] 1 each PO DAILY 05/27/17 [History] Ranitidine HCl [Zantac] 150 mg PO BID 05/27/17 [History] Tamsulosin HCl 0.4 mg [Flomax 0.4 MG] 0.4 mg PO DAILY 08/30/17 [History] Hx Tetanus, Diphtheria Vaccination/Date Given: No Hx Influenza Vaccination/Date Given: Yes Hx Pneumococcal Vaccination/Date Given: Yes - Review of Systems Constitutional: No Fever, No Chills Eyes: No Vision Changes Ears, Nose, & Throat: No Symptoms Respiratory: No Dyspnea Cardiac: Chest Pain (right ribs) Abdominal/Gastrointestinal: No Abdominal Pain, No Nausea, No Vomiting, No Diarrhea Genitourinary Symptoms: No Dysuria Musculoskeletal: Fall, No Back Pain, No Neck Pain, No Joint Pain Skin: No Rash Neurological: No Dizziness, No Focal Weakness, No Headache, No Parasthesia All Other Systems: Reviewed and Negative - Past Medical History Pertinent Past Medical History: Yes Neurological History: Stroke ENT History: Cataracts Cardiac History: No Pertinent History Respiratory History: No Pertinent History Endocrine Medical History: No Pertinent History Musculoskeletal History: Arthritis GI Medical History: No Pertinent History History: No Pertinent History Psycho-Social History: No Pertinent History Male Reproductive Disorders: No Pertinent History Other Medical History: Hx skin CA (melanoma) - Past Surgical History Past Surgical History: Yes Neuro Surgical History: No Pertinent History Cardiac: No Pertinent History Respiratory: No Pertinent History Gastrointestinal: Appendectomy, Cholecystectomy, Hernia Repair Genitourinary: No Pertinent History Musculoskeletal: No Pertinent History Male Surgical History: No Pertinent History Other Surgical History: skin cancer removed 8 yrs ago - Social History Smoking Status: Never smoker Exposure to second hand smoke: No Drug Use: none Patient Lives Alone: No ( is ill in the hospital) - Nursing Vital Signs Nursing Vital Signs: Initial Vital Signs Temperature 97.8 F 10/09/17 06:51 Pulse Rate 65 10/09/17 06:51 Blood Pressure 149/73 10/09/17 06:51 O2 Sat by Pulse Oximetry 98 10/09/17 06:51 Pain Scale Pain Intensity 2 - Physical Exam General Appearance: alert Eye Exam: PERRL/EOMI Ears, Nose, Throat Exam: normal ENT inspection, moist mucous membranes Neck Exam: normal inspection, non-tender, supple, No midline tenderness Respiratory Exam: normal breath sounds, chest tenderness (right anterior mid ribs, no crepitus), No respiratory distress Cardiovascular Exam: regular rate/rhythm, No murmur Gastrointestinal/Abdomen Exam: soft, No tenderness, No distention, No mass, No guarding, No ecchymosis Back Exam: normal inspection, No vertebral tenderness Extremity Exam: normal inspection, normal range of motion, No pedal edema Neurologic Exam: alert, oriented x 3, cooperative, front end technician II-XII nml as tested, sensation nml, No motor deficits Skin Exam: warm, dry, No rash, No ecchymosis SpO2 Interpretation: normal SpO2: 98 Oxygen Delivery: Room Air - Course Nursing assessment & vital signs reviewed: Yes EKG Interpreted by Me: RATE (63), Sinus Rhythm, NORMAL AXIS, 1st degree AV Block (QTc 422-normal), NORMAL ST-T, Other (Poor R wave progression) Ordered Tests: Active Orders 24 hr Category Date Time Status [employer] Consultant STAT Care 10/09/17 07:14 Active Clean Catch Urine Specimen STAT Care 10/09/17 07:14 Active EKG-ER Only STAT Care 10/09/17 07:14 Active IV Insertion STAT Care 10/09/17 07:14 Active NPO (ED) STAT Care 10/09/17 07:14 Active Pulse Oximetry (ED) STAT Care 10/09/17 07:14 Active Regular Diet Diet 10/09/17 Breakfast Active CHEST 2 VIEWS (PA AND LAT) Stat Exams 10/09/17 07:14 Completed HEAD WITHOUT CONTRAST [CT] Stat Exams 10/09/17 07:14 Completed CBC W DIFF Stat Lab 10/09/17 07:20 Completed CMP Stat Lab 10/09/17 07:20 Completed PROTIME WITH INR Stat Lab 10/09/17 07:20 Completed PTT Stat Lab 10/09/17 07:20 Completed UA W/RFX UR CULTURE Stat Lab 10/09/17 07:50 Completed Medication Summary Discontinued Medications Generic Name Dose Route Start Last Admin Trade Name Freq PRN Reason Stop Dose Admin Acetaminophen 650 mg 10/09/17 08:58 Tylenol 325 Mg PO 10/09/17 08:59 STAT ONE Lab/Rad Data: Laboratory Result Diagrams 10/09/17 07:20 10/09/17 07:20 Laboratory Results 10/09/17 10/09/17 10/09/17 Range/Units 07:50 07:20 07:20 WBC (4.0-10.5) K/mm3 RBC (4.1-5.6) M/mm3 Hgb (12.5-18.0) gm/dl Hct (42-50) % MCV (78-100) fl MCH (26-32) pg MCHC (32-36) g/dl RDW (11.5-14.0) % Plt Count (150-450) K/mm3 MPV (6-9.5) fl Gran % (36.0-66.0) % Eos # (Auto) (0-0.5) Absolute Lymphs (auto) (1.0-4.6) Absolute Monos (auto) (0.0-1.3) Lymphocytes % (24.0-44.0) % Monocytes % (0.0-12.0) % Eosinophils % (0.00-5.0) % Basophils % (0.0-0.4) % Absolute Granulocytes (1.4-6.9) Basophils # (0-0.4) PT 10.9 (8.83-12.87) SECONDS INR 0.98 (0.8-3.0) APTT 26.4 (24.1-36.1) SECONDS Sodium 142 (137-145) mmol/L Potassium 3.5 (3.5-5.1) mmol/L Chloride 105 (98-107) mmol/L Carbon Dioxide 29 (22-30) mmol/L Anion Gap 11.4 (5-15) MEQ/L BUN 21 H (9-20) mg/dL Creatinine 0.96 (0.66-1.25) mg/dL Estimated GFR > 60.0 ML/MIN Glucose 103 (74-106) mg/dL Calcium 9.2 (8.4-10.2) mg/dL Total Bilirubin 0.30 (0.2-1.3) mg/dL AST 25 (17-59) U/L ALT 16 (0-50) U/L Alkaline Phosphatase 65 (38-126) U/L Serum Total Protein 6.8 (6.3-8.2) g/dL Albumin 3.7 (3.5-5.0) g/dL Ur Collection Type CLEAN CATCH Urine Color YELLOW (YELLOW) Urine Appearance CLEAR (CLEAR) Urine pH 5.0 (5-6) Ur Specific [place] 1.010 (1.005-1.025) Urine Protein NEGATIVE (Negative) Urine Ketones NEGATIVE (NEGATIVE) Urine Blood NEGATIVE (0-5) Jonatan/ul Urine Nitrite NEGATIVE (NEGATIVE) Urine Bilirubin NEGATIVE (NEGATIVE) Urine Urobilinogen NORMAL (0-1) mg/dL Ur Leukocyte Esterase NEGATIVE (NEGATIVE) Urine Culture Reflexed NO (NO) Urine Glucose NEGATIVE (NEGATIVE) mg/dL Specimen Received 10/09/17 0755 10/09/17 Range/Units 07:20 WBC 5.7 (4.0-10.5) K/mm3 RBC 4.32 (4.1-5.6) M/mm3 Hgb 12.0 L (12.5-18.0) gm/dl Hct 37.0 L (42-50) % MCV 85.6 (78-100) fl MCH 27.7 (26-32) pg MCHC 32.4 (32-36) g/dl RDW 15.9 H (11.5-14.0) % Plt Count 274 (150-450) K/mm3 MPV 9.3 (6-9.5) fl Gran % 56.4 (36.0-66.0) % Eos # (Auto) 0.70 H (0-0.5) Absolute Lymphs (auto) 1.25 (1.0-4.6) Absolute Monos (auto) 0.51 (0.0-1.3) Lymphocytes % 21.9 L (24.0-44.0) % Monocytes % 8.9 (0.0-12.0) % Eosinophils % 12.3 H (0.00-5.0) % Basophils % 0.5 (0.0-0.4) % Absolute Granulocytes 3.21 (1.4-6.9) Basophils # 0.03 (0-0.4) PT (8.83-12.87) SECONDS INR (0.8-3.0) APTT (24.1-36.1) SECONDS Sodium (137-145) mmol/L Potassium (3.5-5.1) mmol/L Chloride (98-107) mmol/L Carbon Dioxide (22-30) mmol/L Anion Gap (5-15) MEQ/L BUN (9-20) mg/dL Creatinine (0.66-1.25) mg/dL Estimated GFR ML/MIN Glucose (74-106) mg/dL Calcium (8.4-10.2) mg/dL Total Bilirubin (0.2-1.3) mg/dL AST (17-59) U/L ALT (0-50) U/L Alkaline Phosphatase (38-126) U/L Serum Total Protein (6.3-8.2) g/dL Albumin (3.5-5.0) g/dL Ur Collection Type Urine Color (YELLOW) Urine Appearance (CLEAR) Urine pH (5-6) Ur Specific [place] (1.005-1.025) Urine Protein (Negative) Urine Ketones (NEGATIVE) Urine Blood (0-5) Jonatan/ul Urine Nitrite (NEGATIVE) Urine Bilirubin (NEGATIVE) Urine Urobilinogen (0-1) mg/dL Ur Leukocyte Esterase (NEGATIVE) Urine Culture Reflexed (NO) Urine Glucose (NEGATIVE) mg/dL Specimen Received - Progress Progress Note: 10/09/17 07:56 CT head: scott 7:46 AM 10/09/2017: Stable nonacute senile brain compared to 11/03/08. scott 7:47 AM 10/09/2017: Also stable small old R occipital infarct. 10/09/17 08:57 CXR: PA/lateral chest again hyperinflated without focal infiltrate, consolidation, or large effusion. Heart remains borderline enlarged. Stable tortuous descending aorta. Bony thorax intact again with mild osteopenia, degenerative changes, and remote T11 wedging deformity. 10/09/17 09:09 NIH 0. No sign of stroke. He appears to have provoked syncope when he bent over putting on his shoes. He ambulated in the [place]. Eating breakfast tray. Will release home. Family will stay with him and use walker. He is under stress as is seriously ill in [place]. Counseled pt/family regarding: lab results, diagnosis, need for follow-up, rad results - Departure Time of Disposition: 09:12 Departure Disposition: Home Clinical Impression: Syncope Qualifiers: Syncope type: unspecified Qualified Code(s): R55 - Syncope and collapse Condition: Stable Critical Care Time: No Referrals: TANIYA MEDEIROS [Primary Care Provider] - Instructions: Preventing Falls, Syncope (Fainting) (DC) Additional Instructions: Stay with family today. Use walker. Return for problems or concerns. Follow up with Dr Medeiros.
[2017-10-09 07:24] LABS: BASOPHIL % 0.5 % (0.0-0.4); Basophil (Absolute #) 0.03 (0-0.4); Eosinophil % 12.3 % (0.00-5.0); Granulocyte Absolute (ANC) 3.21 (1.4-6.9); Granulocytes % 56.4 % (36.0-66.0); Lymphocyte (Absolute #) 1.25 (1.0-4.6); Lymphocytes % 21.9 % (24.0-44.0); Mean Cell Volume 85.6 fl (78-100); Mean Corpuscular Hemoglobin 27.7 pg (26-32); Mean Corpuscular Hgb Concent. 32.4 g/dl (32-36); Mean Platelet Volume 9.3 fl (6-9.5); Monocyte (Absolute #) 0.51 (0.0-1.3); Monocytes % 8.9 % (0.0-12.0); Platelet Count 274 K/mm3 (150-450); Red Blood Count 4.32 M/mm3 (4.1-5.6); Red Cell Distribution Width 15.9 % (11.5-14.0); White Blood Count 5.7 K/mm3 (4.0-10.5)
[2017-10-09 07:33] LABS: INR 0.98 (0.8-3.0)
[2017-10-09 07:35] LABS: PTT 26.4 SECONDS (24.1-36.1)
[2017-10-09 07:37] LABS: ALBUMIN 3.7 g/dL (3.5-5.0); ALKALINE PHOSPHATASE 65 U/L (38-126); ANION GAP 11.4 MEQ/L (5-15); BLOOD UREA NITROGEN 21 mg/dL (9-20); CHLORIDE 105 mmol/L (98-107); Calcium 9.2 mg/dL (8.4-10.2); Carbon Dioxide 29 mmol/L (22-30); Creatinine 1 0.96 mg/dL (0.66-1.25); Glucose 103 mg/dL (74-106); Potassium 3.5 mmol/L (3.5-5.1); SGOT/AST 25 U/L (17-59); SGPT/ALT 16 U/L (0-50); SODIUM 142 mmol/L (137-145); Total Protein 6.8 g/dL (6.3-8.2)
[2017-10-09 07:55] LABS: Appearance CLEAR (CLEAR); Bilirubin NEGATIVE (NEGATIVE); Blood NEGATIVE Ery/ul (0-5); Glucose NEGATIVE (NEGATIVE); Ketones NEGATIVE (NEGATIVE); Leukocyte Esterase NEGATIVE (NEGATIVE); Nitrite NEGATIVE (NEGATIVE); Protein,Urine Dip NEGATIVE (Negative); Urobilinogen NORMAL mg/dL (0-1)
--- NOTE | 2017-10-09 08:57 | XRAY ---
Indication: Right-sided weakness and syncope. Multiple contiguous axial images obtained through the head without contrast. Comparison: November 03, 2008. Again age-appropriate global atrophy, mild periventricular degenerative micro-ischemia bilaterally, and small old right occipital lobe infarct. No acute intracranial hemorrhage, abnormal extra-axial fluid collection, or mass effect. Fourth ventricle is midline without hydrocephalus. Stable dolichoectatic vertebral basilar arteries. Bony calvarium intact. Tiny fluid leveling in the left maxillary sinus. Impression: 1. Again nonacute senile brain with small old right occipital infarct. 2. Minimal left maxillary sinus disease. CTDI 49.41
[2017-10-09] MEDS ORDERED: TYLENOL 325 MG PO ONE (08:58)
--- NOTE | 2017-10-09 08:58 | XRAY ---
Indication: Right rib pain following fall. Comparison: September 03, 2017. PA/lateral chest again hyperinflated without focal infiltrate, consolidation, or large effusion. Heart remains borderline enlarged. Stable tortuous descending aorta. Bony thorax intact again with mild osteopenia, degenerative changes, and remote T11 wedging deformity. Impression: Stable nonacute hyperinflated chest with chronic features.
[2017-10-09 09:09] VITALS: BP 157/67; PULSE 70
[2017-10-09 09:13] VITALS: O2SAT 98
== END 2017-10-09 09:35 | disposition home or self-care (01) ==
LOC: ED 06:47
DX: R55 Syncope and collapse (principal); S50.312A Abrasion of left elbow, initial encounter; R07.81 Pleurodynia; Z79.01 Long term (current) use of anticoagulants; Z79.899 Other long term (current) drug therapy; W19.XXXA Unspecified fall, initial encounter; Y92.009 Unspecified place in unspecified non-institutional (private) residence as the place of occurrence of the external cause
CPT/HCPCS: 36000; 36415; 70450; 71046; 80053; 81002; 85025; 85610; 85730; 93005; 93041; 99285

== ENCOUNTER 2018-02-15 11:03 | Emergency (ER) | payer MEDICARE, OTHER ==
--- NOTE | 2018-02-15 11:10 | ERPHSYRPT ---
- History of Present Illness Time Seen by Provider: 02/15/18 11:09 Historian: patient, family Exam Limitations: no limitations Physician History: 87 y/o white male presents with chronic intermittent abd pain for over a year. pt has been dx in the past with diverticular dz. he also has chronic intermittent nausea. 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 he denies hitting his head. pt describes it more of dropping to his knees. pt has a h/o htn and cva in past. he is on plavix. he has had no residual effects post cva. pt denies abd pain at this time. pt has no vomitng or diarrhea. pt denies cp and denies back pain. recent u /s results of bilat carotid arteries show both widely patent. 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) Quality: other (no abd pain) Severity of Pain-Max: none Severity of Pain-Current: none Modifying Factors: Improves With: nothing Associated Symptoms: denies symptoms, syncope Previous symptoms: same symptoms as today Allergies/Adverse Reactions: No Known Drug Allergies Allergy (Verified 02/15/18 11:19) Home Medications: Clopidogrel Bisulfate 75 mg [PLAVIX 75 MG Tablet] 75 mg PO DAILY 12/19/12 [History] Bimatoprost 0.01% [Lumigan 0.01% 2.5 ml] 1 drop OP HS 03/30/13 [History] Brimonidine Tartrate [Alphagan P 0.15%] 1 drop OP BID 09/14/16 [History] Multivit-Min/FA/Lycopen/Lutein [Centrum Silver Tablet] 1 each PO DAILY 05/27/17 [History] Ranitidine HCl [Zantac] 150 mg PO BID 05/27/17 [History] Tamsulosin HCl 0.4 mg [Flomax 0.4 MG] 0.4 mg PO DAILY 08/30/17 [History] Buspirone HCl 5 mg [Buspar 5 mg] 5 mg DAILY 02/15/18 [History] Lisinopril/Hydrochlorothiazide [Lisinopril-Hctz 20-12.5 mg Tab] 1 ea DAILY 02/15 [History] Hx Tetanus, Diphtheria Vaccination/Date Given: No Hx Influenza Vaccination/Date Given: Yes Hx Pneumococcal Vaccination/Date Given: Yes - Review of Systems Constitutional: Weakness (mild) Eyes: No Symptoms Ears, Nose, & Throat: No Symptoms Respiratory: No Symptoms, No Dyspnea, No Dyspnea on Exertion ([place]), No Stridor, No Wheezing Cardiac: Syncope, No Chest Pain Abdominal/Gastrointestinal: No Symptoms, No Abdominal Pain, No Nausea, No Vomiting, No Diarrhea Genitourinary Symptoms: No Symptoms Musculoskeletal: No Symptoms Skin: No Symptoms Neurological: No Symptoms, No Dizziness, No Focal Weakness, No Gait Changes Psychological: No Symptoms Endocrine: No Symptoms Hematologic/Lymphatic: No Symptoms Immunological/Allergic: No Symptoms All Other Systems: Reviewed and Negative - Past Medical History Pertinent Past Medical History: Yes Neurological History: Stroke ENT History: Cataracts Cardiac History: No Pertinent History Respiratory History: No Pertinent History Endocrine Medical History: No Pertinent History Musculoskeletal History: Arthritis GI Medical History: No Pertinent History History: No Pertinent History Psycho-Social History: No Pertinent History Male Reproductive Disorders: No Pertinent History Other Medical History: Hx skin CA (melanoma) - Past Surgical History Past Surgical History: Yes Neuro Surgical History: No Pertinent History Cardiac: No Pertinent History Respiratory: No Pertinent History Gastrointestinal: Appendectomy, Cholecystectomy, Hernia Repair Genitourinary: No Pertinent History Musculoskeletal: No Pertinent History Male Surgical History: No Pertinent History Other Surgical History: skin cancer removed 8 yrs ago - Social History Smoking Status: Never smoker Exposure to second hand smoke: No Drug Use: none Patient Lives Alone: No ( is ill in the hospital) - Nursing Vital Signs Nursing Vital Signs: Initial Vital Signs Temperature 97.2 F 02/15/18 11:06 Pulse Rate 63 02/15/18 11:06 Respiratory Rate 16 02/15/18 11:06 Blood Pressure 130/65 02/15/18 11:06 O2 Sat by Pulse Oximetry 96 02/15/18 11:06 Pain Scale Pain Intensity 0 - Course Nursing assessment & vital signs reviewed: Yes EKG Interpreted by Me: RATE (55), Sinus Rhythm, Sinus [place], NORMAL AXIS, NORMAL INTERVALS, NORMAL QRS (no sig change from ekg dated 10/09/17) Ordered Tests: Active Orders 24 hr Category Date Time Status Accucheck STAT Care 02/15/18 11:31 Active Trash Hauler STAT Care 02/15/18 11:31 Active EKG-ER Only STAT Care 02/15/18 11:31 Active IV Insertion STAT Care 02/15/18 11:31 Active Orthostatic Vital Signs STAT Care 02/15/18 11:31 Active HEAD WITHOUT CONTRAST [CT] Stat Exams 02/15/18 11:31 Completed CBC W DIFF Stat Lab 02/15/18 11:30 Completed CMP Stat Lab 02/15/18 12:10 Completed PROTIME WITH INR Stat Lab 02/15/18 11:30 Completed TROPONIN Q3H Lab 02/15/18 11:30 Completed TROPONIN Q3H Lab 02/15/18 14:45 Ordered TROPONIN Q3H Lab 02/15/18 17:45 Ordered TROPONIN Q3H Lab 02/15/18 20:45 Ordered TROPONIN Q3H Lab 02/15/18 23:45 Ordered UA W/RFX UR CULTURE Stat Lab 02/15/18 12:04 Completed Holter Monitor ONCE RT 02/15/18 13:56 Active Medication Summary Discontinued Medications Generic Name Dose Route Start Last Admin Trade Name True PRN Reason Stop Dose Admin Sodium Chloride 500 mls @ 999 mls/hr 02/15/18 11:31 02/15/18 13:31 Sodium Chloride 0.9% 1000 Ml IV 02/15/18 12:01 Infused .Q31M STA Infusion Sodium Chloride Confirm 02/15/18 11:40 Sodium Chloride 0.9% 1000 Ml Administered 02/15/18 11:41 Dose 1,000 mls @ ud .ROUTE .STK-MED ONE Lab/Rad Data: Laboratory Result Diagrams 02/15/18 11:30 Laboratory Results 02/15/18 02/15/18 02/15/18 Range/Units 12:10 12:04 11:30 WBC (4.0-10.5) K/mm3 RBC (4.1-5.6) M/mm3 Hgb (12.5-18.0) gm/dl Hct (42-50) % MCV (78-100) fl MCH (26-32) pg MCHC (32-36) g/dl RDW (11.5-14.0) % Plt Count (150-450) K/mm3 MPV (6-9.5) fl Gran % (36.0-66.0) % Eos # (Auto) (0-0.5) Absolute Lymphs (auto) (1.0-4.6) Absolute Monos (auto) (0.0-1.3) Lymphocytes % (24.0-44.0) % Monocytes % (0.0-12.0) % Eosinophils % (0.00-5.0) % Basophils % (0.0-0.4) % Absolute Granulocytes (1.4-6.9) Basophils # (0-0.4) PT (8.83-12.87) SECONDS INR (0.8-3.0) Anion Gap (5-15) MEQ/L Troponin I (0.000-0.034) ng/mL Ur Collection Type VOID Urine Color YELLOW (YELLOW) Urine Appearance CLEAR (CLEAR) Urine pH 6.0 (5-6) Ur Specific [place] 1.015 (1.005-1.025) Urine Protein NEGATIVE (Negative) Urine Ketones NEGATIVE (NEGATIVE) Urine Blood NEGATIVE (0-5) Jonatan/ul Urine Nitrite NEGATIVE (NEGATIVE) Urine Bilirubin NEGATIVE (NEGATIVE) Urine Urobilinogen NORMAL (0-1) mg/dL Ur Leukocyte Esterase NEGATIVE (NEGATIVE) Urine Culture Reflexed NO (NO) Urine Glucose NEGATIVE (NEGATIVE) mg/dL Specimen Received 02/15/18 1200 02/15/18 02/15/18 Range/Units 11:30 11:30 WBC 4.7 (4.0-10.5) K/mm3 RBC 4.14 (4.1-5.6) M/mm3 Hgb 11.7 L (12.5-18.0) gm/dl Hct 34.4 L (42-50) % MCV 83.1 (78-100) fl MCH 28.2 (26-32) pg MCHC 34.0 (32-36) g/dl RDW 15.2 H (11.5-14.0) % Plt Count 207 (150-450) K/mm3 MPV 9.2 (6-9.5) fl Gran % 63.9 (36.0-66.0) % Eos # (Auto) 0.08 (0-0.5) Absolute Lymphs (auto) 1.05 (1.0-4.6) Absolute Monos (auto) 0.56 (0.0-1.3) Lymphocytes % 22.2 L (24.0-44.0) % Monocytes % 11.8 (0.0-12.0) % Eosinophils % 1.7 (0.00-5.0) % Basophils % 0.4 (0.0-0.4) % Absolute Granulocytes 3.02 (1.4-6.9) Basophils # 0.02 (0-0.4) PT 12.4 (8.83-12.87) SECONDS INR 1.07 (0.8-3.0) Anion Gap (5-15) MEQ/L Troponin I (0.000-0.034) ng/mL Ur Collection Type Urine Color (YELLOW) Urine Appearance (CLEAR) Urine pH (5-6) Ur Specific [place] (1.005-1.025) Urine Protein (Negative) Urine Ketones (NEGATIVE) Urine Blood (0-5) Jonatan/ul Urine Nitrite (NEGATIVE) Urine Bilirubin (NEGATIVE) Urine Urobilinogen (0-1) mg/dL Ur Leukocyte Esterase (NEGATIVE) Urine Culture Reflexed (NO) Urine Glucose (NEGATIVE) mg/dL Specimen Received - Progress Progress: improved Progress Note: 02/15/18 13:[address] beltre, pts emergency medicine medical director. i reviewed pts hx, condition, lab,ekg and ct brain results. he recommends holter monitor and call to arrange a follow up outpt appt. Discussed with : Other (Dr. Beltre pts emergency medicine medical director) Will see patient in: office Counseled pt/family regarding: lab results, diagnosis, need for follow-up, rad results - Departure Time of Disposition: 13:53 Departure Disposition: Home Clinical Impression: Bradycardia, Near syncope Condition: Stable Critical Care Time: No Referrals: TANIYA MADERA [Primary Care Provider] - Additional Instructions: WEAR HOLTER MONITOR AND FOLLOW INSTRUCTIONS. CALL DR. BELTRE'S OFFICE TODAY TO ARRANGE FOR OUTPATIENT APPOINTMENT. TAKE MEDICATIONS PRESCRIBED. DRINK PLENTY OF FLUIDS.
[2018-02-15] MEDS ORDERED: Sodium Chloride 0.9% 1000 ML 1,000 ML ONE (11:40)
[2018-02-15 11:53] LABS: BASOPHIL % 0.4 % (0.0-0.4); Basophil (Absolute #) 0.02 (0-0.4); Eosinophil % 1.7 % (0.00-5.0); Eosinophil (Absolute #) 0.08 (0-0.5); Granulocyte Absolute (ANC) 3.02 (1.4-6.9); Granulocytes % 63.9 % (36.0-66.0); Hematocrit 34.4 % (42-50); Hemoglobin 11.7 gm/dl (12.5-18.0); Lymphocyte (Absolute #) 1.05 (1.0-4.6); Lymphocytes % 22.2 % (24.0-44.0); Mean Cell Volume 83.1 fl (78-100); Mean Platelet Volume 9.2 fl (6-9.5); Monocyte (Absolute #) 0.56 (0.0-1.3); Monocytes % 11.8 % (0.0-12.0); Platelet Count 207 K/mm3 (150-450); Red Blood Count 4.14 M/mm3 (4.1-5.6); Red Cell Distribution Width 15.2 % (11.5-14.0); White Blood Count 4.7 K/mm3 (4.0-10.5)
[2018-02-15 11:54] LABS: Mean Corpuscular Hemoglobin 28.2 pg (26-32)
[2018-02-15 12:13] LABS: INR 1.07 (0.8-3.0)
--- NOTE | 2018-02-15 12:25 | XRAY ---
Indication: Syncope. Multiple contiguous axial images obtained through the head without contrast. Comparison: October 09, 2017. Stable age-appropriate global atrophy, mild periventricular degenerative micro-ischemia bilaterally, and small focus old right occipital lobe infarct. No acute intracranial hemorrhage, abnormal extra-axial fluid collection, or mass effect. Fourth ventricle is midline without hydrocephalus. Bony calvarium intact. Visualized paranasal sinuses and mastoid air cells are clear. Impression: 1. Again nonacute senile brain with small old right occipital infarct. 2. No new or acute intracranial abnormalities. CT DI 68.98
[2018-02-15 12:29] LABS: Appearance CLEAR (CLEAR); Bilirubin NEGATIVE (NEGATIVE); Blood NEGATIVE Ery/ul (0-5); Glucose NEGATIVE (NEGATIVE); Ketones NEGATIVE (NEGATIVE); Leukocyte Esterase NEGATIVE (NEGATIVE); Nitrite NEGATIVE (NEGATIVE); Protein,Urine Dip NEGATIVE (Negative); Specific Gravity 1.015 (1.005-1.025); Urobilinogen NORMAL mg/dL (0-1)
[2018-02-15 14:30] VITALS: BP 126/66; PULSE 50; O2SAT 97
== END 2018-02-15 14:28 | disposition home or self-care (01) ==
LOC: ED 11:03
DX: R00.1 Bradycardia, unspecified (principal); R55 Syncope and collapse; R10.9 Unspecified abdominal pain; R11.0 Nausea; Z79.01 Long term (current) use of anticoagulants; Z79.899 Other long term (current) drug therapy; W18.30XA Fall on same level, unspecified, initial encounter; Y93.9 Activity, unspecified; Y92.79 Other farm location as the place of occurrence of the external cause
CPT/HCPCS: 36000; 36415; 70450; 80053; 81002; 82962; 84484; 85025; 85610; 93005; 93041; 93225; 96360; 99284

== ENCOUNTER 2018-04-01 10:50 | Emergency (ER) | payer MEDICARE, OTHER ==
[2018-04-01 11:16] VITALS: BP 156/86; PULSE 50; O2SAT 97
--- NOTE | 2018-04-01 11:19 | ERPHSYRPT ---
- History of Present Illness Time Seen by Provider: 04/01/18 11:19 Source: patient, family Patient Subjective Stated Complaint: states he was trimming his toesnails with a pair of scissors and cut his toenail off. is on blood thinner and oozing at nailbed site Triage Nursing Assessment: oozing noted to right 4th toe. + pedal pulse present Physician History: 88 y/o white male on plavix, presents to ED with oozing of blood from nail bed of right 4th toe. pt was trimming toenail and eventually removed the nail completely himself. persistent oozing from nailbed. since his arrival here and pressure bandage, the oozing has sig decreased. he took his most recent plavix this am. Timing/Duration: today Quality: other (mild persistent oozing) Severity: mild Location: other (right 5th toe) Associated Symptoms: No denies symptoms, No blisters, No change in skin texture , No difficulty breathing, No edema, No fever, No flushing, No headache, No hives, No jaundice, No malaise, No nasal congestion, No numbness, No pallor, No paresthesia, No petechiae, No rash, No sore throat, No swelling/mass/lumps, No tingling Allergies/Adverse Reactions: No Known Drug Allergies Allergy (Verified 02/15/18 11:19) Home Medications: Clopidogrel Bisulfate 75 mg [PLAVIX 75 MG Tablet] 75 mg PO DAILY 12/19/12 [History] Bimatoprost 0.01% [Lumigan 0.01% 2.5 ml] 1 drop OP HS 03/30/13 [History] Brimonidine Tartrate [Alphagan P 0.15%] 1 drop OP BID 09/14/16 [History] Multivit-Min/FA/Lycopen/Lutein [Centrum Silver Tablet] 1 each PO DAILY 05/27/17 [History] Ranitidine HCl [Zantac] 150 mg PO BID 05/27/17 [History] Tamsulosin HCl 0.4 mg [Flomax 0.4 MG] 0.4 mg PO DAILY 08/30/17 [History] Buspirone HCl 5 mg [Buspar 5 mg] 5 mg DAILY 02/15/18 [History] Lisinopril/Hydrochlorothiazide [Lisinopril-Hctz 20-12.5 mg Tab] 1 ea DAILY 02/15 [History] Hx Tetanus, Diphtheria Vaccination/Date Given: No Hx Influenza Vaccination/Date Given: Yes Hx Pneumococcal Vaccination/Date Given: Yes Immunizations Up to Date: (unknown) - Review of Systems Constitutional: No Symptoms, No Fever, No Chills Eyes: No Symptoms, No Discharge, No Eye Pain Ears, Nose, & Throat: No Symptoms, No Ear Pain, No Ear Discharge Respiratory: No Symptoms, No Cough, No Cyanosis, No Dyspnea Cardiac: No Symptoms, No Chest Pain, No Palpitations, No Syncope Abdominal/Gastrointestinal: No Symptoms, No Abdominal Pain, No Nausea, No Vomiting Genitourinary Symptoms: No Symptoms, No Dysuria, No Frequency, No Hematuria Musculoskeletal: Injury (trimming left 4th toe), No Back Pain, No Neck Pain, No Fall Skin: No Symptoms Neurological: No Symptoms Psychological: No Symptoms Endocrine: No Symptoms Hematologic/Lymphatic: No Symptoms Immunological/Allergic: No Symptoms All Other Systems: Reviewed and Negative - Past Medical History Pertinent Past Medical History: Yes Neurological History: Stroke ENT History: Cataracts Cardiac History: No Pertinent History Respiratory History: No Pertinent History Endocrine Medical History: No Pertinent History Musculoskeletal History: Arthritis GI Medical History: No Pertinent History History: No Pertinent History Psycho-Social History: No Pertinent History Male Reproductive Disorders: No Pertinent History Other Medical History: Hx skin CA (melanoma) - Past Surgical History Past Surgical History: Yes Neuro Surgical History: No Pertinent History Cardiac: No Pertinent History Respiratory: No Pertinent History Gastrointestinal: Appendectomy, Cholecystectomy, Hernia Repair Genitourinary: No Pertinent History Musculoskeletal: No Pertinent History Male Surgical History: No Pertinent History Other Surgical History: skin cancer removed 8 yrs ago - Social History Smoking Status: Never smoker Exposure to second hand smoke: No Drug Use: none Patient Lives Alone: No - Nursing Vital Signs Nursing Vital Signs: Initial Vital Signs Temperature 97 F 04/01/18 11:07 Pulse Rate 50 L 04/01/18 11:07 Respiratory Rate 16 04/01/18 11:07 Blood Pressure 156/86 04/01/18 11:07 O2 Sat by Pulse Oximetry 97 04/01/18 11:07 Pain Scale Pain Intensity 0 - Physical Exam General Appearance: no apparent distress, alert Eye Exam: PERRL/EOMI, eyes nml inspection Ears, Nose, Throat Exam: normal ENT inspection Neck Exam: normal inspection, non-tender, supple, full range of motion Respiratory Exam: normal breath sounds, lungs clear, airway intact, No chest tenderness, No respiratory distress, No accessory muscle use, No rhonchi, No wheezing, No stridor Cardiovascular Exam: regular rate/rhythm, normal heart sounds, normal peripheral pulses Gastrointestinal/Abdomen Exam: soft, No tenderness Rectal Exam: not done Back Exam: normal inspection, normal range of motion, No CVA tenderness, No vertebral tenderness Extremity Exam: other (scant oozing of blood from nailbed left 4th toe. no toenail present) Neurologic Exam: alert, cooperative, [employer] II-XII nml as tested, normal mood/ affect, nml cerebellar function Skin Exam: normal color, warm, dry Lymphatic Exam: No adenopathy SpO2 Interpretation: normal SpO2: 97 Oxygen Delivery: Room Air - Course Nursing assessment & vital signs reviewed: Yes - Progress Progress: improved Progress Note: 04/01/18 11:39 pressure dressing with surgicel and nonstick gauze placed about left 4th toe. Counseled pt/family regarding: diagnosis, need for follow-up - Departure Time of Disposition: 11:40 Departure Disposition: Home Clinical Impression: Bleeding Condition: Stable Critical Care Time: No Referrals: TANIYA MADERA [Primary Care Provider] - Additional Instructions: Stop plavix. restart plavix as prescribed on Thursday04/04/18. remove pressure dressing on Thursday04/04/18. do not rub but allow soapy water to run on toe site. cover with antibiotic ointment and bandaid.
== END 2018-04-01 12:10 | disposition home or self-care (01) ==
LOC: ED 10:50
DX: R58 Hemorrhage, not elsewhere classified (principal); L60.8 Other nail disorders; Z79.01 Long term (current) use of anticoagulants
CPT/HCPCS: 99283

== ENCOUNTER 2018-10-19 10:20 | Emergency (ER) | payer MEDICARE, OTHER ==
--- NOTE | 2018-10-19 10:43 | ERPHSYRPT ---
- History of Present Illness Time Seen by Provider: 10/19/18 10:35 Source: patient, family Exam Limitations: no limitations Physician History: 88 y/o white male presents with dizziness intermittently since yesterday. more constant this am. pt has had similar sx prompting placement of a cardiac pacemaker within the last 2 months. pt denies any pain at all. no soa. no n/v/ d. occurs when standing up. no new meds or medication changes. Timing/Duration: day(s) (1) Severity: mild Character of Deficits: other (dizziness) Deficits: no difficulties Baseline/Normal Cognition: alert oriented x 3 Current Cognition: alert oriented x 3 Baseline Gait: walks w/o assistance Associated Symptoms: No confusion, No nausea, No vomiting, No weakness, No vision changes Allergies/Adverse Reactions: No Known Drug Allergies Allergy (Verified 10/19/18 10:44) Home Medications: Clopidogrel Bisulfate 75 mg [PLAVIX 75 MG Tablet] 75 mg PO DAILY 12/19/12 [History] Bimatoprost 0.01% [Lumigan 0.01% 2.5 ml] 1 drop OP HS 03/30/13 [History] Multivit-Min/FA/Lycopen/Lutein [Centrum Silver Tablet] 1 each PO DAILY 05/27/17 [History] Ranitidine HCl [Zantac] 150 mg PO BID 05/27/17 [History] Tamsulosin HCl 0.4 mg [Flomax 0.4 MG] 0.4 mg PO DAILY 08/30/17 [History] Lisinopril/Hydrochlorothiazide [Lisinopril-Hctz 20-12.5 mg Tab] 1 ea DAILY 02/15 [History] Fluticasone/Vilanterol [Breo Ellipta 100-25 Mcg INH] 1 ea DAILY 10/19/18 [ History] Hx Tetanus, Diphtheria Vaccination/Date Given: No Hx Influenza Vaccination/Date Given: Yes Hx Pneumococcal Vaccination/Date Given: Yes - Review of Systems Constitutional: No Symptoms Eyes: No Symptoms Ears, Nose, & Throat: No Symptoms Respiratory: No Symptoms Cardiac: No Symptoms Abdominal/Gastrointestinal: No Symptoms Genitourinary Symptoms: No Symptoms Musculoskeletal: No Symptoms Skin: No Symptoms Neurological: Dizziness Psychological: No Symptoms Endocrine: No Symptoms Hematologic/Lymphatic: No Symptoms Immunological/Allergic: No Symptoms All Other Systems: Reviewed and Negative - Past Medical History Pertinent Past Medical History: Yes Neurological History: Stroke ENT History: Cataracts Cardiac History: No Pertinent History Respiratory History: No Pertinent History Endocrine Medical History: No Pertinent History Musculoskeletal History: Arthritis GI Medical History: No Pertinent History History: No Pertinent History Psycho-Social History: No Pertinent History Male Reproductive Disorders: No Pertinent History Other Medical History: Hx skin CA (melanoma) - Past Surgical History Past Surgical History: Yes Neuro Surgical History: No Pertinent History Cardiac: No Pertinent History Respiratory: No Pertinent History Gastrointestinal: Appendectomy, Cholecystectomy, Hernia Repair Genitourinary: No Pertinent History Musculoskeletal: No Pertinent History Male Surgical History: No Pertinent History Other Surgical History: skin cancer removed 8 yrs ago - Social History Smoking Status: Never smoker Exposure to second hand smoke: No Drug Use: none Patient Lives Alone: No - Nursing Vital Signs Nursing Vital Signs: Initial Vital Signs Temperature 97.0 F 10/19/18 10:25 Pulse Rate 61 10/19/18 10:25 Respiratory Rate 16 10/19/18 10:25 Blood Pressure 155/76 10/19/18 10:25 O2 Sat by Pulse Oximetry 99 10/19/18 10:25 Pain Scale Pain Intensity 0 - [place] Coma Scale Best Eye Response ([place]): (4) open spontaneously Best Verbal Response ([place]): (5) oriented Best Motor Response ([place]): (6) obeys commands Radha Total: 15 - Physical Exam General Appearance: no apparent distress, alert Eye Exam: bilateral eye: normal inspection, PERRL, EOMI Ears, Nose, Throat Exam: normal ENT inspection, moist mucous membranes Neck Exam: normal inspection, non-tender, supple, full range of motion Respiratory: normal breath sounds, lungs clear, airway intact, No chest tenderness, No respiratory distress Cardiovascular: regular rate/rhythm, normal heart sounds, normal peripheral pulses Gastrointestinal: soft, normal bowel sounds, tenderness Rectal Exam: not done Back Exam: normal inspection, normal range of motion, CVA tenderness Extremity Exam: normal inspection, normal range of motion, pelvis stable Mental Status: alert, oriented x 3, 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 persistent left ant fasicular block when compared to ekg dated 02/15/18 ) Ordered Tests: Active Orders 24 hr Category Date Time Status Workforce Management Manager STAT Care 10/19/18 10:43 Active Clean Catch Urine Specimen STAT Care 10/19/18 10:43 Active EKG-ER Only STAT Care 10/19/18 10:43 Active IV Insertion STAT Care 10/19/18 10:43 Active HEAD WITHOUT CONTRAST [CT] Stat Exams 10/19/18 10:55 Completed CBC W DIFF Stat Lab 10/19/18 10:50 Completed CMP Stat Lab 10/19/18 10:50 Completed UA W/RFX UR CULTURE Stat Lab 10/19/18 10:43 Completed Lab/Rad Data: Laboratory Result Diagrams 10/19/18 10:50 10/19/18 10:50 Laboratory Results 10/19/18 10/19/18 10/19/18 Range/Units 10:50 10:50 10:43 WBC 5.0 (4.0-10.5) K/mm3 RBC 3.83 L (4.1-5.6) M/mm3 Hgb 11.4 L (12.5-18.0) gm/dl Hct 34.4 L (42-50) % MCV 89.8 (78-100) fl MCH 29.7 (26-32) pg MCHC 33.1 (32-36) g/dl RDW 14.2 H (11.5-14.0) % Plt Count 196 (150-450) K/mm3 MPV 8.8 (6-9.5) fl Gran % 70.4 H (36.0-66.0) % Eos # (Auto) 0.07 (0-0.5) Absolute Lymphs (auto) 1.01 (1.0-4.6) Absolute Monos (auto) 0.36 (0.0-1.3) Lymphocytes % 20.2 L (24.0-44.0) % Monocytes % 7.2 (0.0-12.0) % Eosinophils % 1.4 (0.00-5.0) % Basophils % 0.8 (0.0-0.4) % Absolute Granulocytes 3.51 (1.4-6.9) Basophils # 0.04 (0-0.4) Sodium 137 (137-145) mmol/L Potassium 3.6 (3.5-5.1) mmol/L Chloride 101 (98-107) mmol/L Carbon Dioxide 29 (22-30) mmol/L Anion Gap 10.9 (5-15) MEQ/L BUN 24 H (9-20) mg/dL Creatinine 1.21 (0.66-1.25) mg/dL Estimated GFR > 60.0 ML/MIN Glucose 94 (74-106) mg/dL Calcium 9.6 (8.4-10.2) mg/dL Total Bilirubin 0.80 (0.2-1.3) mg/dL AST 29 (17-59) U/L ALT 17 (0-50) U/L Alkaline Phosphatase 61 (38-126) U/L Serum Total Protein 6.5 (6.3-8.2) g/dL Albumin 3.4 L (3.5-5.0) g/dL Urine Color YELLOW (YELLOW) Urine Appearance CLEAR (CLEAR) Urine pH 8.0 (5-6) Ur Specific [place] 1.006 (1.005-1.025) Urine Protein NEGATIVE (Negative) Urine Ketones NEGATIVE (NEGATIVE) Urine Blood NEGATIVE (0-5) Jonatan/ul Urine Nitrite NEGATIVE (NEGATIVE) Urine Bilirubin NEGATIVE (NEGATIVE) Urine Urobilinogen NEGATIVE (0-1) mg/dL Ur Leukocyte Esterase NEGATIVE (NEGATIVE) Urine WBC (Auto) NONE (0-5) /HPF Urine RBC (Auto) NONE (0-2) /HPF U Epithel Cells (Auto) NONE (FEW) /HPF Urine Bacteria (Auto) NONE (NEGATIVE) /HPF Urine Culture Reflexed NO (NO) Urine Glucose NEGATIVE (NEGATIVE) mg/dL - Progress Progress: improved, re-examined Progress Note: 10/19/18 12:22 ct head- no acute process Counseled pt/family regarding: lab results, diagnosis, need for follow-up, rad results - Departure Departure Disposition: Home Clinical Impression: Dizziness Condition: Stable Critical Care Time: No Referrals: TANIYA MADERA [Primary Care Provider] - Additional Instructions: drink plenty of fluids. 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 call for appointment. continue your medications as prescribed
[2018-10-19 11:01] LABS: BASOPHIL % 0.8 % (0.0-0.4); Basophil (Absolute #) 0.04 (0-0.4); Eosinophil % 1.4 % (0.00-5.0); Eosinophil (Absolute #) 0.07 (0-0.5); Granulocyte Absolute (ANC) 3.51 (1.4-6.9); Granulocytes % 70.4 % (36.0-66.0); Hematocrit 34.4 % (42-50); Hemoglobin 11.4 gm/dl (12.5-18.0); Lymphocyte (Absolute #) 1.01 (1.0-4.6); Lymphocytes % 20.2 % (24.0-44.0); Mean Cell Volume 89.8 fl (78-100); Mean Corpuscular Hemoglobin 29.7 pg (26-32); Mean Corpuscular Hgb Concent. 33.1 g/dl (32-36); Mean Platelet Volume 8.8 fl (6-9.5); Monocyte (Absolute #) 0.36 (0.0-1.3); Monocytes % 7.2 % (0.0-12.0); Platelet Count 196 K/mm3 (150-450); Red Blood Count 3.83 M/mm3 (4.1-5.6); Red Cell Distribution Width 14.2 % (11.5-14.0)
[2018-10-19 11:17] VITALS: PULSE 60
[2018-10-19 11:21] LABS: ALBUMIN 3.4 g/dL (3.5-5.0); ALKALINE PHOSPHATASE 61 U/L (38-126); ANION GAP 10.9 MEQ/L (5-15); BLOOD UREA NITROGEN 24 mg/dL (9-20); CHLORIDE 101 mmol/L (98-107); Calcium 9.6 mg/dL (8.4-10.2); Carbon Dioxide 29 mmol/L (22-30); Creatinine 1 1.21 mg/dL (0.66-1.25); Glucose 94 mg/dL (74-106); Potassium 3.6 mmol/L (3.5-5.1); SGOT/AST 29 U/L (17-59); SGPT/ALT 17 U/L (0-50); SODIUM 137 mmol/L (137-145); Total Protein 6.5 g/dL (6.3-8.2)
--- NOTE | 2018-10-19 11:25 | XRAY ---
Indication: Dizziness. Multiple contiguous axial images obtained through the head without contrast. Comparison: February 15, 2018. Stable age-appropriate global atrophy, mild periventricular degenerative micro-ischemia bilaterally, and right occipital lobe infarct. No acute intracranial hemorrhage, abnormal extra-axial fluid collection, or mass effect. Fourth ventricle is midline without hydrocephalus. Bony calvarium intact. Visualized paranasal sinuses and mastoid air cells are clear. Impression: Stable nonacute senile brain with old right occipital lobe infarct. CTDI 67.99
[2018-10-19 11:35] LABS: Appearance CLEAR (CLEAR); Bilirubin NEGATIVE (NEGATIVE); Blood NEGATIVE Ery/ul (0-5); Glucose NEGATIVE (NEGATIVE); Ketones NEGATIVE (NEGATIVE); Leukocyte Esterase NEGATIVE (NEGATIVE); Nitrite NEGATIVE (NEGATIVE); Protein,Urine Dip NEGATIVE (Negative); Specific Gravity 1.006 (1.005-1.025); Urobilinogen NEGATIVE mg/dL (0-1)
[2018-10-19 12:09] VITALS: BP 170/81; O2SAT 99
== END 2018-10-19 12:20 | disposition home or self-care (01) ==
LOC: ED 10:20
DX: R42 Dizziness and giddiness (principal); Z79.899 Other long term (current) drug therapy; Z86.73 Personal history of transient ischemic attack (TIA), and cerebral infarction without residual deficits; M19.90 Unspecified osteoarthritis, unspecified site; Z85.820 Personal history of malignant melanoma of skin
CPT/HCPCS: 36000; 36415; 70450; 80053; 81001; 85025; 93005; 93041; 99284

== ENCOUNTER 2019-01-05 12:35 | Emergency (ER) | payer MEDICARE, OTHER ==
--- NOTE | 2019-01-05 12:43 | ERPHSYRPT ---
- History of Present Illness Time Seen by Provider: 01/05/19 12:42 Historian: patient, family Exam Limitations: no limitations Physician History: 88 y/o white male with h/o htn, bradycardia with pacemaker placed, copd and gastric cancer currently receiving chemoradiation. pts most recent dose of chemo today. pt has a right sublcavian portacath in place since 12/16/18. pt presents to ED from home with complaint of bilat chest and shoulder pain and weakness of bilat shoulders. Timing/Duration: today Activities at Onset: none Quality: burning, other (weakness) Location: shoulder, other (bilat chest) Chest Pain Radiation: no radiation Severity of Pain-Max: mild Severity of Pain-Current: mild Associated Symptoms: weakness Prior Chest Pain/Cardiac Workup: cardiac cath Nitro Today/Relief: no nitro taken today Aspirin Treatment Today: no aspirin today Allergies/Adverse Reactions: No Known Drug Allergies Allergy (Verified 01/05/19 12:57) Home Medications: Clopidogrel Bisulfate 75 mg [PLAVIX 75 MG Tablet] 75 mg PO DAILY 12/19/12 [History] Bimatoprost 0.01% [Lumigan 0.01% 2.5 ml] 1 drop OP HS 03/30/13 [History] Multivit-Min/FA/Lycopen/Lutein [Centrum Silver Tablet] 1 each PO DAILY 05/27/17 [History] raNITIdine HCl [Zantac] 150 mg PO BID 05/27/17 [History] Tamsulosin HCl 0.4 mg [Flomax 0.4 MG] 0.4 mg PO DAILY 08/30/17 [History] Lisinopril/Hydrochlorothiazide [Lisinopril-Hctz 20-12.5 mg Tab] 0.5 tab PO DAILY 02/15/18 [History] Fluticasone/Vilanterol [Breo Ellipta 100-25 Mcg INH] 1 ea PO DAILY 10/19/18 [ History] Brimonidine Tartrate [Alphagan P] 1 drop OP DAILY 01/05/19 [History] Finasteride 5 mg PO DAILY 01/05/19 [History] Pantoprazole 20 mg [Protonix 20MG Tablet] 20 mg PO DAILY 01/05/19 [History ] Hx Tetanus, Diphtheria Vaccination/Date Given: No Hx Influenza Vaccination/Date Given: Yes Hx Pneumococcal Vaccination/Date Given: Yes - Review of Systems Constitutional: Weakness Eyes: No Symptoms Ears, Nose, & Throat: No Symptoms Respiratory: No Symptoms Cardiac: Chest Pain (burning throughout bilat chest) Genitourinary Symptoms: No Symptoms Musculoskeletal: Other (burning pain and weaknes bilat shoulders) Skin: No Symptoms Neurological: No Symptoms Psychological: No Symptoms Endocrine: No Symptoms Hematologic/Lymphatic: No Symptoms Immunological/Allergic: No Symptoms All Other Systems: Reviewed and Negative - Past Medical History Pertinent Past Medical History: Yes Neurological History: Stroke ENT History: Cataracts Cardiac History: No Pertinent History Respiratory History: No Pertinent History Endocrine Medical History: No Pertinent History Musculoskeletal History: Arthritis GI Medical History: No Pertinent History History: No Pertinent History Psycho-Social History: No Pertinent History Male Reproductive Disorders: No Pertinent History Other Medical History: Hx skin CA (melanoma) - Past Surgical History Past Surgical History: Yes Neuro Surgical History: No Pertinent History Cardiac: No Pertinent History Respiratory: No Pertinent History Gastrointestinal: Appendectomy, Cholecystectomy, Hernia Repair Genitourinary: No Pertinent History Musculoskeletal: No Pertinent History Male Surgical History: No Pertinent History Other Surgical History: skin cancer removed 8 yrs ago - Social History Smoking Status: Never smoker Exposure to second hand smoke: No Drug Use: none Patient Lives Alone: No - Nursing Vital Signs Nursing Vital Signs: Initial Vital Signs Temperature 98.1 F 01/05/19 12:43 Pulse Rate 60 01/05/19 12:43 Respiratory Rate 21 01/05/19 12:43 Blood Pressure 180/76 01/05/19 12:43 O2 Sat by Pulse Oximetry 99 01/05/19 12:43 Pain Scale Pain Intensity 6 - Physical Exam General Appearance: no apparent distress, alert Eye Exam: PERRL/EOMI, eyes nml inspection Ears, Nose, Throat Exam: normal ENT inspection, moist mucous membranes Neck Exam: normal inspection, non-tender, supple, full range of motion Respiratory Exam: normal breath sounds, chest tenderness, lungs clear, airway intact, No respiratory distress Cardiovascular Exam: normal heart sounds, normal peripheral pulses, other ( ventricular paced rhythm) Gastrointestinal/Abdomen Exam: soft, normal bowel sounds, No tenderness Rectal Exam: not done Back Exam: normal inspection, normal range of motion, No CVA tenderness, No vertebral tenderness Extremity Exam: normal inspection, normal range of motion, pelvis stable Neurologic Exam: alert, oriented x 3, cooperative, 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 no change from comparison ekg dated . ) Ordered Tests: Active Orders 24 hr Category Date Time Status Human Resource Adviser STAT Care 01/05/19 13:15 Active EKG-ER Only STAT Care 01/05/19 13:14 Active IV Insertion STAT Care 01/05/19 13:14 Active Pulse Oximetry (ED) STAT Care 01/05/19 13:14 Active CHEST 1 VIEW (PORTABLE) Stat Exams 01/05/19 13:14 Completed CHEST WITH CONTRAST [CT] Stat Exams 01/05/19 14:04 Completed CBC W DIFF Stat Lab 01/05/19 13:26 Completed CMP Stat Lab 01/05/19 13:26 Completed D-DIMER QUANTITATION Stat Lab 01/05/19 13:26 Completed NT PRO BNP Stat Lab 01/05/19 13:26 Completed PROTIME WITH INR Stat Lab 01/05/19 13:26 Completed TROPONIN Q3H Lab 01/05/19 13:26 Completed TROPONIN Q3H Lab 01/05/19 16:15 Received TROPONIN Q3H Lab 01/05/19 19:15 Ordered TROPONIN Q3H Lab 01/05/19 22:15 Ordered TROPONIN Q3H Lab 01/06/19 01:15 Ordered Medication Summary Generic Name Dose Route Start Last Admin Trade Name Freq PRN Reason Stop Dose Admin Sodium Chloride 1,000 mls @ 50 mls/hr 01/05/19 13:15 01/05/19 13:23 Sodium Chloride 0.9% 1000 Ml IV 02/04/19 13:14 50 mls/hr .Q20H VILMA Administration Discontinued Medications Generic Name Dose Route Start Last Admin Trade Name Freq PRN Reason Stop Dose Admin Morphine Sulfate 2 mg 01/05/19 14:38 01/05/19 14:49 Morphine Sulfate 2 Mg Inj IV 01/05/19 14:39 2 mg STAT ONE Administration Morphine Sulfate Confirm 01/05/19 14:45 Morphine Sulfate 2 Mg Inj Administered 01/05/19 14:46 Dose 2 mg .ROUTE .STK-MED ONE Lab/Rad Data: Laboratory Result Diagrams 01/05/19 13:26 01/05/19 13:26 Laboratory Results 01/05/19 01/05/19 01/05/19 Range/Units 13:26 13:26 13:26 WBC (4.0-10.5) K/mm3 RBC (4.1-5.6) M/mm3 Hgb (12.5-18.0) gm/dl Hct (42-50) % MCV (78-100) fl MCH (26-32) pg MCHC (32-36) g/dl RDW (11.5-14.0) % Plt Count (150-450) K/mm3 MPV (6-9.5) fl Gran % (36.0-66.0) % Eos # (Auto) (0-0.5) Absolute Lymphs (auto) (1.0-4.6) Absolute Monos (auto) (0.0-1.3) Lymphocytes % (24.0-44.0) % Monocytes % (0.0-12.0) % Eosinophils % (0.00-5.0) % Basophils % (0.0-0.4) % Absolute Granulocytes (1.4-6.9) Basophils # (0-0.4) PT 12.3 (8.83-12.87) SECONDS INR 1.09 (0.8-3.0) D-Dimer 2467 H* (215-500) ng/mL Sodium 136 L (137-145) mmol/L Potassium 3.6 (3.5-5.1) mmol/L Chloride 103 (98-107) mmol/L Carbon Dioxide 27 (22-30) mmol/L Anion Gap 10.3 (5-15) MEQ/L BUN 20 (9-20) mg/dL Creatinine 0.87 (0.66-1.25) mg/dL Estimated GFR > 60.0 ML/MIN Glucose 123 H (74-106) mg/dL Calcium 9.1 (8.4-10.2) mg/dL Total Bilirubin 1.30 (0.2-1.3) mg/dL AST 25 (17-59) U/L ALT 14 (0-50) U/L Alkaline Phosphatase 53 (38-126) U/L Troponin I 0.019 (0.000-0.034) ng/mL NT-Pro-B Natriuret Pep 160 (0-1800) pg/mL Serum Total Protein 6.3 (6.3-8.2) g/dL Albumin 3.2 L (3.5-5.0) g/dL Slides for Path Review 01/05/19 Range/Units 13:26 WBC 2.5 L (4.0-10.5) K/mm3 RBC 3.68 L (4.1-5.6) M/mm3 Hgb 11.2 L (12.5-18.0) gm/dl Hct 33.7 L (42-50) % MCV 91.6 (78-100) fl MCH 30.4 (26-32) pg MCHC 33.2 (32-36) g/dl RDW 15.2 H (11.5-14.0) % Plt Count 193 (150-450) K/mm3 MPV 8.8 (6-9.5) fl Gran % 79.2 H (36.0-66.0) % Eos # (Auto) 0.01 (0-0.5) Absolute Lymphs (auto) 0.32 L (1.0-4.6) Absolute Monos (auto) 0.17 (0.0-1.3) Lymphocytes % 13.1 L (24.0-44.0) % Monocytes % 6.9 (0.0-12.0) % Eosinophils % 0.4 (0.00-5.0) % Basophils % 0.4 (0.0-0.4) % Absolute Granulocytes 1.94 (1.4-6.9) Basophils # 0.01 (0-0.4) PT (8.83-12.87) SECONDS INR (0.8-3.0) D-Dimer (215-500) ng/mL Sodium (137-145) mmol/L Potassium (3.5-5.1) mmol/L Chloride (98-107) mmol/L Carbon Dioxide (22-30) mmol/L Anion Gap (5-15) MEQ/L BUN (9-20) mg/dL Creatinine (0.66-1.25) mg/dL Estimated GFR ML/MIN Glucose (74-106) mg/dL Calcium (8.4-10.2) mg/dL Total Bilirubin (0.2-1.3) mg/dL AST (17-59) U/L ALT (0-50) U/L Alkaline Phosphatase (38-126) U/L Troponin I (0.000-0.034) ng/mL NT-Pro-B Natriuret Pep (0-1800) pg/mL Serum Total Protein (6.3-8.2) g/dL Albumin (3.5-5.0) g/dL Slides for Path Review YES - Progress Progress: improved Air Movement: good Progress Note: 01/05/19 16:37 cxr- no acute process; ct chest-no acute process. cardiomegaly with pericardial thickening Blood Culture(s) Obtained: No Antibiotics given: No Counseled pt/family regarding: lab results, diagnosis, need for follow-up, rad results - Departure Departure Disposition: Home Clinical Impression: Chest pain Condition: Stable Critical Care Time: No Referrals: DOCTOR,NO FAMILY [Primary Care Provider] - Additional Instructions: follow up with primary doctor for further management. return to ED if symptoms worsen Prescriptions: Hydrocodone/APAP 5/325 [[place] 5/325 mg] 1 each PO Q8H PRN PRN #6 tablet MDD 3 PRN Reason: Pain
[2019-01-05] MEDS ORDERED: Sodium Chloride 0.9% 1000 ML 1,000 ML IV SCH (13:15)
[2019-01-05] MEDS ORDERED: Sodium Chloride 0.9% 1000 ML 1,000 ML ONE (13:21)
[2019-01-05 13:28] LABS: BASOPHIL % 0.4 % (0.0-0.4); Basophil (Absolute #) 0.01 (0-0.4); Eosinophil % 0.4 % (0.00-5.0); Eosinophil (Absolute #) 0.01 (0-0.5); Granulocyte Absolute (ANC) 1.94 (1.4-6.9); Granulocytes % 79.2 % (36.0-66.0); Hematocrit 33.7 % (42-50); Hemoglobin 11.2 gm/dl (12.5-18.0); Lymphocyte (Absolute #) 0.32 (1.0-4.6); Lymphocytes % 13.1 % (24.0-44.0); Mean Cell Volume 91.6 fl (78-100); Mean Corpuscular Hemoglobin 30.4 pg (26-32); Mean Corpuscular Hgb Concent. 33.2 g/dl (32-36); Mean Platelet Volume 8.8 fl (6-9.5); Monocyte (Absolute #) 0.17 (0.0-1.3); Monocytes % 6.9 % (0.0-12.0); Platelet Count 193 K/mm3 (150-450); Red Blood Count 3.68 M/mm3 (4.1-5.6); Red Cell Distribution Width 15.2 % (11.5-14.0); White Blood Count 2.5 K/mm3 (4.0-10.5)
[2019-01-05 13:35] LABS: INR 1.09 (0.8-3.0); PROTIME 12.3 SECONDS (8.83-12.87)
--- NOTE | 2019-01-05 13:39 | XRAY ---
Indication: Chest pain. Current chemotherapy and radiation therapy for gastric cancer. Comparison: October 09, 2017. Portable chest again demonstrates cardiomegaly with new left-sided dual-lead pacemaker and new right Port-A-Cath. No focal infiltrate, consolidation, or large effusion. Bony thorax intact again with mild osteopenia and degenerative changes. Impression: New pacemaker and Port-A-Cath without complications. Stable cardiomegaly. Negative acute pneumonic process or CHF.
[2019-01-05 13:49] LABS: ALBUMIN 3.2 g/dL (3.5-5.0); ALKALINE PHOSPHATASE 53 U/L (38-126); ANION GAP 10.3 MEQ/L (5-15); BLOOD UREA NITROGEN 20 mg/dL (9-20); CHLORIDE 103 mmol/L (98-107); Calcium 9.1 mg/dL (8.4-10.2); Carbon Dioxide 27 mmol/L (22-30); Creatinine 1 0.87 mg/dL (0.66-1.25); Glucose 123 mg/dL (74-106); NT PRO BNP 160 pg/mL (0-1800); Potassium 3.6 mmol/L (3.5-5.1); SGOT/AST 25 U/L (17-59); SGPT/ALT 14 U/L (0-50); SODIUM 136 mmol/L (137-145); Total Protein 6.3 g/dL (6.3-8.2)
[2019-01-05] MEDS ORDERED: MORPHINE SULFATE 2 MG INJ IV ONE (14:38)
[2019-01-05] MEDS ORDERED: MORPHINE SULFATE 2 MG INJ ONE (14:45)
--- NOTE | 2019-01-05 16:28 | XRAY ---
Indication: Short of breath. Elevated d-dimer. Multiple contiguous axial images obtained through the chest using 80 cc of Isovue-370 contrast and PE protocol. Comparison: None There is good opacification of the pulmonary arteries to include the lobar and segmental branches. No filling defect or pulmonary embolus. Heart is enlarged with small pericardial effusion/thickening. Left-sided dual lead pacemaker and right Port-A-Cath. No pathologic mediastinal/hilar lymphadenopathy. Lungs demonstrates mild bibasilar dependent atelectasis and left base calcified granuloma. No suspicious pulmonary mass, infiltrate, or effusion. Bone windows mild degenerative changes throughout the spine and remote-appearing T11 superior endplate fracture with approximately 25% height loss. No suspicious bony lesions. Limited upper abdomen demonstrates 2 left lobe hepatic cyst, largest measuring 1.3 cm. Incidental cholecystectomy clips and calcified splenic granulomas. Impression: 1. Negative pulmonary embolus. No acute cardiopulmonary abnormalities. 2. Cardiomegaly with pericardial effusion/thickening, remote T11 endplate fracture, hepatic cysts, and evidence for old granulomatous disease. CTDI 20.85
[2019-01-05 17:11] VITALS: BP 154/88; PULSE 60; O2SAT 99
== END 2019-01-05 17:22 | disposition home or self-care (01) ==
LOC: ED 12:35
DX: R07.9 Chest pain, unspecified (principal); I10 Essential (primary) hypertension; Z95.0 Presence of cardiac pacemaker; J44.9 Chronic obstructive pulmonary disease, unspecified; C16.9 Malignant neoplasm of stomach, unspecified; Z79.899 Other long term (current) drug therapy; M25.512 Pain in left shoulder; M25.511 Pain in right shoulder; M19.90 Unspecified osteoarthritis, unspecified site; Z86.73 Personal history of transient ischemic attack (TIA), and cerebral infarction without residual deficits; Z85.820 Personal history of malignant melanoma of skin
CPT/HCPCS: 36000; 36415; 71045; 71260; 80053; 83880; 84484; 85025; 85379; 85610; 93005; 93041; 94760; 96360; 96361; 96374; 96375; 99284; J1642; J2270

== ENCOUNTER 2019-01-20 17:34 | Inpatient (IN) | payer MEDICARE, OTHER ==
--- NOTE | 2019-01-20 17:36 | ERPHSYRPT ---
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 pt is currrently receiving chemotx. pt was seen 2 weeks ago and worked up for cp. today, approx 1 hours [employer], he had sudden onset abd pain. pt brought to ED by sons. upon arrival to ED to sign in, pt began vomiting and slumped over. pt has not had a bm in 2 days. Timing/Duration: today, worse Severity: moderate Associated Symptoms: nausea, vomiting, abdominal pain, weakness, No chest pain, No headaches Allergies/Adverse Reactions: No Known Drug Allergies Allergy (Verified 01/05/19 12:57) Home Medications: Clopidogrel Bisulfate 75 mg [PLAVIX 75 MG Tablet] 75 mg PO DAILY 12/19/12 [History] Bimatoprost 0.01% [Lumigan 0.01% 2.5 ml] 1 drop OP HS 03/30/13 [History] Multivit-Min/FA/Lycopen/Lutein [Centrum Silver Tablet] 1 each PO DAILY 05/27/17 [History] raNITIdine HCl [Zantac] 150 mg PO DAILY 05/27/17 [History] Tamsulosin HCl 0.4 mg [Flomax 0.4 MG] 0.4 mg PO DAILY 08/30/17 [History] Fluticasone/Vilanterol [Breo Ellipta 100-25 Mcg INH] 1 ea PO DAILY 10/19/18 [ History] Brimonidine Tartrate [Alphagan P] 1 drop OP DAILY 01/05/19 [History] Finasteride 5 mg PO DAILY 01/05/19 [History] Pantoprazole 20 mg [Protonix 20MG Tablet] 40 mg PO DAILY 01/05/19 [History ] Hydrocodone/APAP 5/325 [Decherd 5/325 mg] 1 each PO Q4H PRN PRN 01/20/19 [ History] Lisinopril 5 mg [Zestril 5 MG] 5 mg PO DAILY 01/20/19 [History] Loperamide HCl 2 mg [Imodium 2 mg] 2 mg PO UD PRN 01/20/19 [History] Ondansetron ODT 4 MG [Zofran Odt 4 mg] 4 mg PO Q6H PRN PRN 01/20/19 [ History] Prochlorperazine Maleate 10 mg [Compazine 10 mg] 10 mg PO Q4HPRN PRN 01/20/19 [ History] Hx Tetanus, Diphtheria Vaccination/Date Given: No Hx Influenza Vaccination/Date Given: Yes Hx Pneumococcal Vaccination/Date Given: Yes - Review of Systems Constitutional: Weakness Eyes: No Symptoms Ears, Nose, & Throat: No Symptoms Respiratory: No Symptoms Cardiac: No Symptoms Abdominal/Gastrointestinal: Abdominal Pain, Nausea, Vomiting Genitourinary Symptoms: No Symptoms Musculoskeletal: No Symptoms Skin: No Symptoms Neurological: No Symptoms Psychological: No Symptoms Endocrine: No Symptoms Hematologic/Lymphatic: No Symptoms Immunological/Allergic: No Symptoms All Other Systems: Reviewed and Negative - Past Medical History Pertinent Past Medical History: Yes Neurological History: Stroke ENT History: Cataracts Cardiac History: No Pertinent History Respiratory History: No Pertinent History Endocrine Medical History: No Pertinent History Musculoskeletal History: Arthritis GI Medical History: No Pertinent History History: No Pertinent History Psycho-Social History: No Pertinent History Male Reproductive Disorders: No Pertinent History Other Medical History: Hx skin CA (melanoma) - Past Surgical History Past Surgical History: Yes Neuro Surgical History: No Pertinent History Cardiac: No Pertinent History Respiratory: No Pertinent History Gastrointestinal: Appendectomy, Cholecystectomy, Hernia Repair Genitourinary: No Pertinent History Musculoskeletal: No Pertinent History Male Surgical History: No Pertinent History Other Surgical History: skin cancer removed 8 yrs ago - Social History Smoking Status: Never smoker Exposure to second hand smoke: No Drug Use: none Patient Lives Alone: No - Nursing Vital Signs Nursing Vital Signs: Initial Vital Signs Temperature 97.6 F 01/20/19 17:47 Pulse Rate 121 H 01/20/19 17:47 Respiratory Rate 23 01/20/19 17:47 Blood Pressure 71/52 01/20/19 17:47 O2 Sat by Pulse Oximetry 90 L 01/20/19 17:47 Pain Scale Pain Intensity 6 - Physical Exam General Appearance: moderate distress, alert, obese Eye Exam: PERRL/EOMI Ears, Nose, Throat Exam: dry mucous membranes Neck Exam: normal inspection, non-tender, supple, full range of motion Respiratory Exam: normal breath sounds, lungs clear, airway intact, No chest tenderness, No respiratory distress Cardiovascular Exam: regular rate/rhythm, normal heart sounds, normal peripheral pulses Gastrointestinal/Abdomen Exam: soft, normal bowel sounds, tenderness (diffuse), No guarding Rectal Exam: not done Back Exam: normal inspection, normal range of motion, No CVA tenderness Extremity Exam: normal inspection, normal range of motion, pelvis stable Neurologic Exam: alert, oriented x 3, cooperative, 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 II-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 tested Skin Exam: warm, dry, pale Lymphatic Exam: No adenopathy SpO2 Interpretation: borderline oxygenation O2 Delivery: Nasal Cannula (2l) - Course Nursing assessment & vital signs reviewed: Yes Ordered Tests: Active Orders 24 hr Category Date Time Status EKG-ER Only STAT Care 01/20/19 17:38 Active IV Insertion STAT Care 01/20/19 17:38 Active NPO (ED) STAT Care 01/20/19 17:38 Active ABDOMEN AND PELVIS W/0 CONTRAS [CT] Stat Exams 01/20/19 19:18 Taken CHEST 1 VIEW (PORTABLE) Stat Exams 01/20/19 17:47 Taken AMYLASE Stat Lab 01/20/19 17:48 Completed BLOOD CULTURE Stat Lab 01/20/19 18:10 Received CBC W DIFF Stat Lab 01/20/19 17:48 Completed CMP Stat Lab 01/20/19 17:48 Completed LIPASE Stat Lab 01/20/19 17:48 Completed Lactic Acid Stat Lab 01/20/19 17:45 Completed Lactic Acid Stat Lab 01/20/19 19:48 Ordered TROPONIN Q3H Lab 01/20/19 17:48 Completed TROPONIN Q3H Lab 01/20/19 20:45 Ordered TROPONIN Q3H Lab 01/20/19 23:45 Ordered TROPONIN Q3H Lab 01/21/19 02:45 Ordered TROPONIN Q3H Lab 01/21/19 05:45 Ordered UA W/RFX UR CULTURE Stat Lab 01/20/19 18:15 Completed Transfer Order Routine Transfer 01/20/19 Ordered Medication Summary Generic Name Dose Route Start Last Admin Trade Name Freq PRN Reason Stop Dose Admin Dopamine HCl/Dextrose 250 mls @ 14.884 mls/hr 01/20/19 18:14 01/20/19 19:49 Dopamine 400 Mg/D5w 250ml Premix IV 02/19/19 18:13 2.5 mcg/kg/min .[id number] PRN 7.442 mls/hr SEVERE HYPOTENSION Titration Protocol 5 MCG/KG/MIN Discontinued Medications Generic Name Dose Route Start Last Admin Trade Name Freq PRN Reason Stop Dose Admin Sodium Chloride Confirm 01/20/19 17:42 Sodium Chloride 0.9% 1000 Ml Administered 01/20/19 17:43 Dose 1,000 mls @ ud .ROUTE .STK-MED ONE Sodium Chloride 500 mls @ 500 mls/hr 01/20/19 17:47 01/20/19 18:08 Sodium Chloride 0.9% 500 Ml IV 01/20/19 18:46 500 mls/hr .Q1H ONE Administration Meropenem 1 g/ Sodium Chloride 100 mls @ 200 mls/hr 01/20/19 19:09 01/20/19 19:24 IV 01/20/19 19:38 200 mls/hr STAT ONE Administration Sodium Chloride Confirm 01/20/19 19:19 Sodium Chloride 0.9% 100 Ml Ivpb Administered 01/20/19 19:20 Dose 100 mls @ ud IV .STK-MED ONE Meropenem Confirm 01/20/19 19:19 Merrem 1 Gm Administered 01/20/19 19:20 Dose 1 g IV .STK-MED ONE Morphine Sulfate 2 mg 01/20/19 19:46 01/20/19 19:50 Morphine Sulfate 2 Mg Inj IV 01/20/19 19:47 2 mg STAT ONE Administration Morphine Sulfate Confirm 01/20/19 19:49 Morphine Sulfate 2 Mg Inj Administered 01/20/19 19:50 Dose 2 mg .ROUTE .STK-MED ONE Ondansetron HCl 4 mg 01/20/19 17:38 01/20/19 17:46 Zofran 4 Mg/2 Ml Vial IV 01/20/19 17:39 4 mg STAT ONE Administration Ondansetron HCl Confirm 01/20/19 17:41 Zofran 4 Mg/2 Ml Vial Administered 01/20/19 17:42 Dose 4 mg .ROUTE .STK-MED ONE Promethazine HCl 12.5 mg 01/20/19 19:34 01/20/19 19:42 Phenergan 25 Mg Inj IV 01/20/19 19:35 12.5 mg STAT ONE Administration Promethazine HCl Confirm 01/20/19 19:39 Phenergan 25 Mg Inj Administered 01/20/19 19:40 Dose 25 mg .ROUTE .STK-MED ONE Lab/Rad Data: Laboratory Result Diagrams 01/20/19 17:48 01/20/19 17:48 Laboratory Results 01/20/19 01/20/19 01/20/19 Range/Units 18:15 17:48 17:48 WBC (4.0-10.5) K/mm3 RBC (4.1-5.6) M/mm3 Hgb (12.5-18.0) gm/dl Hct (42-50) % MCV (78-100) fl MCH (26-32) pg MCHC (32-36) g/dl RDW (11.5-14.0) % Plt Count (150-450) K/mm3 MPV (6-9.5) fl Gran % (36.0-66.0) % Eos # (Auto) (0-0.5) Absolute Lymphs (auto) (1.0-4.6) Absolute Monos (auto) (0.0-1.3) Lymphocytes % (24.0-44.0) % Monocytes % (0.0-12.0) % Eosinophils % (0.00-5.0) % Basophils % (0.0-0.4) % Absolute Granulocytes (1.4-6.9) Basophils # (0-0.4) Sodium 135 L (137-145) mmol/L Potassium 3.3 L (3.5-5.1) mmol/L Chloride 105 (98-107) mmol/L Carbon Dioxide 17 L (22-30) mmol/L Anion Gap 16.1 H (5-15) MEQ/L BUN 21 H (9-20) mg/dL Creatinine 1.57 H (0.66-1.25) mg/dL Estimated GFR 44.7 ML/MIN Glucose 217 H (74-106) mg/dL Lactic Acid (0.4-2.0) Calcium 9.2 (8.4-10.2) mg/dL Total Bilirubin 1.20 (0.2-1.3) mg/dL AST 26 (17-59) U/L ALT 17 (0-50) U/L Alkaline Phosphatase 63 (38-126) U/L Troponin I 0.029 (0.000-0.034) ng/mL Serum Total Protein 6.2 L (6.3-8.2) g/dL Albumin 3.4 L (3.5-5.0) g/dL Amylase 389 H (30-110) U/L Lipase 163 (23-300) U/L Urine Color YELLOW (YELLOW) Urine Appearance CLEAR (CLEAR) Urine pH 7.0 (5-6) Ur Specific [place] 1.009 (1.005-1.025) Urine Protein NEGATIVE (Negative) Urine Ketones NEGATIVE (NEGATIVE) Urine Blood NEGATIVE (0-5) Jonatan/ul Urine Nitrite NEGATIVE (NEGATIVE) Urine Bilirubin NEGATIVE (NEGATIVE) Urine Urobilinogen 4 (0-1) mg/dL Ur Leukocyte Esterase NEGATIVE (NEGATIVE) Urine WBC (Auto) NONE (0-5) /HPF Urine RBC (Auto) NONE (0-2) /HPF U Epithel Cells (Auto) NONE (FEW) /HPF Urine Bacteria (Auto) NONE SEEN (NEGATIVE) /HPF Urine Mucus (Auto) SLIGHT (NEGATIVE) /HPF Urine Culture Reflexed NO (NO) Urine Glucose NEGATIVE (NEGATIVE) mg/dL 01/20/19 01/20/19 Range/Units 17:48 17:45 WBC 3.1 L (4.0-10.5) K/mm3 RBC 4.11 (4.1-5.6) M/mm3 Hgb 12.8 (12.5-18.0) gm/dl Hct 38.0 L (42-50) % MCV 92.5 (78-100) fl MCH 31.1 (26-32) pg MCHC 33.7 (32-36) g/dl RDW 15.5 H (11.5-14.0) % Plt Count 142 L (150-450) K/mm3 MPV 8.3 (6-9.5) fl Gran % 82.3 H (36.0-66.0) % Eos # (Auto) 0.03 (0-0.5) Absolute Lymphs (auto) 0.36 L (1.0-4.6) Absolute Monos (auto) 0.14 (0.0-1.3) Lymphocytes % 11.6 L (24.0-44.0) % Monocytes % 4.5 (0.0-12.0) % Eosinophils % 1.0 (0.00-5.0) % Basophils % 0.6 (0.0-0.4) % Absolute Granulocytes 2.56 (1.4-6.9) Basophils # 0.02 (0-0.4) Sodium (137-145) mmol/L Potassium (3.5-5.1) mmol/L Chloride (98-107) mmol/L Carbon Dioxide (22-30) mmol/L Anion Gap (5-15) MEQ/L BUN (9-20) mg/dL Creatinine (0.66-1.25) mg/dL Estimated GFR ML/MIN Glucose (74-106) mg/dL Lactic Acid 6.1 H (0.4-2.0) Calcium (8.4-10.2) mg/dL Total Bilirubin (0.2-1.3) mg/dL AST (17-59) U/L ALT (0-50) U/L Alkaline Phosphatase (38-126) U/L Troponin I (0.000-0.034) ng/mL Serum Total Protein (6.3-8.2) g/dL Albumin (3.5-5.0) g/dL Amylase (30-110) U/L Lipase (23-300) U/L Urine Color (YELLOW) Urine Appearance (CLEAR) Urine pH (5-6) Ur Specific [place] (1.005-1.025) Urine Protein (Negative) Urine Ketones (NEGATIVE) Urine Blood (0-5) Jonatan/ul Urine Nitrite (NEGATIVE) Urine Bilirubin (NEGATIVE) Urine Urobilinogen (0-1) mg/dL Ur Leukocyte Esterase (NEGATIVE) Urine WBC (Auto) (0-5) /HPF Urine RBC (Auto) (0-2) /HPF U Epithel Cells (Auto) (FEW) /HPF Urine Bacteria (Auto) (NEGATIVE) /HPF Urine Mucus (Auto) (NEGATIVE) /HPF Urine Culture Reflexed (NO) Urine Glucose (NEGATIVE) mg/dL - Progress Progress: improved, re-examined Progress Note: 01/20/19 19:52 ct scan abd/pelvis-left basilar lung infiltrate, descending colon diverticulitis , right ureteral calculus spoke with dr. lr. will admit pt and continue low dose dopamine, meropenem and add flagyl. pt is dnr Counseled pt/family regarding: lab results, diagnosis, rad results - Departure Departure Disposition: In-patient Admission Clinical Impression: Pneumonia, Diverticulitis, Ureterolithiasis Condition: Serious Critical Care Time: Yes Critical Care Time(excluding separately billable procedures): 30-74 minutes Referrals: DOCTOR,NO FAMILY [Primary Care Provider] -
[2019-01-20] MEDS ORDERED: Zofran 4 MG/2 ML VIAL IV ONE (17:38)
[2019-01-20] MEDS ORDERED: Zofran 4 MG/2 ML VIAL ONE (17:41)
[2019-01-20] MEDS ORDERED: Sodium Chloride 0.9% 1000 ML 1,000 ML ONE ×2 (17:42→20:21)
[2019-01-20] MEDS ORDERED: Sodium Chloride 0.9% 500 ML 500 ML IV ONE (17:47)
[2019-01-20 17:48] LABS: Lactic Acid 6.1 (0.4-2.0)
[2019-01-20 17:53] LABS: BASOPHIL % 0.6 % (0.0-0.4); Basophil (Absolute #) 0.02 (0-0.4); Eosinophil (Absolute #) 0.03 (0-0.5); Granulocyte Absolute (ANC) 2.56 (1.4-6.9); Granulocytes % 82.3 % (36.0-66.0); Hemoglobin 12.8 gm/dl (12.5-18.0); Lymphocyte (Absolute #) 0.36 (1.0-4.6); Lymphocytes % 11.6 % (24.0-44.0); Mean Cell Volume 92.5 fl (78-100); Mean Corpuscular Hemoglobin 31.1 pg (26-32); Mean Corpuscular Hgb Concent. 33.7 g/dl (32-36); Mean Platelet Volume 8.3 fl (6-9.5); Monocyte (Absolute #) 0.14 (0.0-1.3); Monocytes % 4.5 % (0.0-12.0); Platelet Count 142 K/mm3 (150-450); Red Blood Count 4.11 M/mm3 (4.1-5.6); Red Cell Distribution Width 15.5 % (11.5-14.0); White Blood Count 3.1 K/mm3 (4.0-10.5)
[2019-01-20 18:06] LABS: ALBUMIN 3.4 g/dL (3.5-5.0); ANION GAP 16.1 MEQ/L (5-15); BILIRUBIN,TOTAL 1.2 mg/dL (0.2-1.3); Calcium 9.2 mg/dL (8.4-10.2); Creatinine 1 1.57 mg/dL (0.66-1.25); Potassium 3.3 mmol/L (3.5-5.1); Total Protein 6.2 g/dL (6.3-8.2)
[2019-01-20] MEDS ORDERED: Dopamine 400 MG/D5W 250ML PREMIX 250 ML IV PRN ×2 (18:14→20:44)
[2019-01-20] MEDS ORDERED: Dopamine 400 MG/D5W 250ML PREMIX 250 ML IV ONE (18:23)
[2019-01-20 18:33] LABS: Appearance CLEAR (CLEAR); Bilirubin NEGATIVE (NEGATIVE); Blood NEGATIVE Ery/ul (0-5); Glucose NEGATIVE (NEGATIVE); Ketones NEGATIVE (NEGATIVE); Leukocyte Esterase NEGATIVE (NEGATIVE); Mucus SLIGHT /HPF (NEGATIVE); Nitrite NEGATIVE (NEGATIVE); Protein,Urine Dip NEGATIVE (Negative); Specific Gravity 1.009 (1.005-1.025); Urobilinogen 4 mg/dL (0-1)
[2019-01-20 18:36] LABS: Bacteria NONE SEEN /HPF (NEGATIVE)
[2019-01-20] MEDS ORDERED: Merrem 1 GM 1 G in Sodium Chloride 100ML MINI-BAG PLUS 100 ML IV ONE (19:09)
[2019-01-20] MEDS ORDERED: Merrem 1 GM IV ONE (19:19)
[2019-01-20] MEDS ORDERED: Sodium Chloride 0.9% 100 ML IVPB 100 ML IV ONE (19:19)
[2019-01-20] MEDS ORDERED: Phenergan 25 MG INJ IV ONE (19:34)
[2019-01-20] MEDS ORDERED: Phenergan 25 MG INJ ONE (19:39)
[2019-01-20] MEDS ORDERED: MORPHINE SULFATE 2 MG INJ IV ONE (19:46)
[2019-01-20] MEDS ORDERED: MORPHINE SULFATE 2 MG INJ ONE (19:49)
[2019-01-20] MEDS ORDERED: FEVERALL 650 MG PR PRN (20:44)
[2019-01-20] MEDS ORDERED: Zofran 4 MG/2 ML VIAL IV PRN (20:44)
[2019-01-21] MEDS: PROTONIX 40 MG IV IV SCH ×2 (00:42→21:20)
[2019-01-21] MEDS: FLAGYL 500 MG IVPB 500 MG/100 ML BAG IV SCH ×5 (00:42→23:53)
[2019-01-21] MEDS ORDERED: Sodium Chloride 0.9% 1000 ML 1,000 ML IV SCH (01:30)
[2019-01-21] MEDS ORDERED: Sodium Chloride 0.9% 1000 ML 1,000 ML IV STA (02:22)
[2019-01-21] MEDS ORDERED: MERREM 500MG IV ONE (03:06)
[2019-01-21] MEDS ORDERED: Sodium Chloride 0.9% 100 ML IVPB 100 ML IV ONE (03:07)
[2019-01-21] MEDS: MORPHINE SULFATE 2 MG INJ IV PRN ×5 (03:09→18:52)
[2019-01-21] MEDS: MERREM 500MG 500 MG in Sodium Chloride 100ML MINI-BAG PLUS 100 ML IV SCH ×4 (03:23→21:23)
[2019-01-21 06:16] LABS: Hematocrit 30.2 % (42-50); Hemoglobin 10.1 gm/dl (12.5-18.0); Mean Cell Volume 92.4 fl (78-100); Mean Corpuscular Hgb Concent. 33.4 g/dl (32-36); Mean Platelet Volume 9.1 fl (6-9.5); Platelet Count 112 K/mm3 (150-450); Red Blood Count 3.27 M/mm3 (4.1-5.6); Red Cell Distribution Width 15.1 % (11.5-14.0); White Blood Count 2.4 K/mm3 (4.0-10.5)
[2019-01-21 06:38] LABS: Mean Corpuscular Hemoglobin 30.8 pg (26-32)
[2019-01-21 06:55] LABS: ALBUMIN 2.4 g/dL (3.5-5.0); ANION GAP 11.1 MEQ/L (5-15); BILIRUBIN,TOTAL 1.2 mg/dL (0.2-1.3); Calcium 8.1 mg/dL (8.4-10.2); Creatinine 1 1.58 mg/dL (0.66-1.25); Potassium 4.5 mmol/L (3.5-5.1); Total Protein 4.7 g/dL (6.3-8.2)
[2019-01-21 07:46] LABS: BAND 41 % (0.0-2.0); Basophil 1 % (0.0-1.0); Lymphocytes 3 % (24-44); Monocyte 4 % (0.0-12.0); Neutrophils 51 % (36.-66.); Total Cells Counted 100
[2019-01-21 07:49] LABS: Platelet Estimate DECREASED (NORMAL)
[2019-01-21 07:51] LABS: Granulocyte Absolute (ANC) 2.22 (1.4-6.9)
[2019-01-21] MEDS: LEVOPHED 4 MG/4 ML 4,000 MCG in Dextrose 5%/Water IV Soln. 500 ML 500 ML IV PRN (07:59)
[2019-01-21] MEDS: Sodium Chloride 0.9% 1000 ML 1,000 ML IV SCH ×3 (08:06→21:18)
--- NOTE | 2019-01-21 09:13 | XRAY ---
Indication: Abdomen pain. Vomiting and constipation. Multiple contiguous axial images obtained through the abdomen and pelvis without contrast as ordered. Comparison: October 17, 2016. Lung bases again demonstrate scattered atelectasis/scarring and left base calcified granuloma. New medial left lower lobe patchy infiltrates/atelectasis. No large effusion. Heart remains enlarged with new small pericardial effusion. Stable small hiatal hernia. Noncontrasted stomach and bowel loops appear nonobstructed. Stable descending duodenal diverticulum. There remains mild scattered descending and sigmoid diverticulosis with new mild diverticulitis. New moderate rectal fecal impaction. Again previous appendectomy and cholecystectomy. No free fluid/air. Stable calcified splenic granulomas, chronic pancreatitis calcifications, cirrhotic liver, left lobe hepatic cyst, left renal parapelvic cysts, nonobstructing distal right ureter calculus, and splenorenal varices. New Tran catheter empties the urinary bladder. Remaining liver, pancreas, spleen, adrenal glands, kidneys, ureters, and bladder appear unremarkable for noncontrast exam. There remains mild aortoiliac calcifications without AAA. Osseous structures again demonstrates osteopenia and mild degenerative changes throughout the thoracolumbar spine. New remote-appearing T11 superior endplate fracture with approximately 25% height loss. Impression: 1. Again colonic diverticulosis with new mild diverticulitis involving the descending/sigmoid colon. No complications. 2. New rectal fecal impaction. 3. There remains cardiomegaly with new pericardial effusion. 4. New medial left lower lobe infiltrate/atelectasis. 5. Stable small hiatal hernia, duodenal diverticulum, cirrhosis, hepatic cyst, nonobstructing distal right ureteral calculus, left renal cysts, splenorenal varices, and evidence for old granulomatous disease. 6. New finding remote-appearing T11 endplate fracture. Stable osteopenia and multilevel degenerative spondylosis. CT DI 18.87
--- NOTE | 2019-01-21 09:13 | XRAY ---
Indication: Short of breath. Hypoxia. Comparison: January 05, 2019. Portable chest unchanged again demonstrating cardiomegaly obscuring the left lung base, left-sided pacemaker, and right Port-A-Cath. No focal infiltrate, consolidation, or large effusion. Bony thorax intact. No new/acute findings.
--- NOTE | 2019-01-21 09:18 | PCM.HP ---
History of Present Illness - Chief Complaint Chief Complaint: pna, diverticulitis History of Present Illness: is a 88 year old male pt o fmine from [facility] with COPD, and HTN, recent pacemaker placement, currently being treated for gastric ca who was admitted through ER with diverticulitis, LLL pneumonia, and nonobstructing renal stone. He had been having constipation for about a week, then yesterday had sudden onset of increased abd pain. He says pain is LLQ, same area and type of pain as his cancer, but prior to this his son notes that although he has an rx for norco, he has only taken a few of them. He just doesn't complain of pain. This morning his pain was 8/10. He vomited in the ER then his BP was noted to be in the 70s systolic. His lactate was 6.1. He was given IV flujids and started on dopamine. He was continued until late evening when his HR was increased on the dopamine so it was stopped. BP went from 120s systolic to 70s systolic so this morning he was started on levophed drip - currently at 5 mcg. He has had loose stools x 2 since admission. urine output 250 cc overnight. Had 3238 cc in. He is a poor historian. - Review of Systems Constitutional: Weakness Abdominal/Gastrointestinal: Abdominal Pain, Vomiting, Constipation, Appetite Changes Genitourinary Symptoms: Other (decreased urination overnight) All Other Systems: Reviewed and Negative Medications & Allergies Home Medications: Home Medication List Clopidogrel Bisulfate 75 mg [PLAVIX 75 MG Tablet] 75 mg PO DAILY 12/19/12 [History Confirmed 01/20/19] Bimatoprost 0.01% [Lumigan 0.01% 2.5 ml] 1 drop OP HS 03/30/13 [History Confirmed 01/20/19] Multivit-Min/FA/Lycopen/Lutein [Centrum Silver Tablet] 1 each PO DAILY 05/27/17 [History Confirmed 01/20/19] raNITIdine HCl [Zantac] 150 mg PO DAILY 05/27/17 [History Confirmed 01/20/19] Tamsulosin HCl 0.4 mg [Flomax 0.4 MG] 0.4 mg PO DAILY 08/30/17 [History Confirmed 01/20/19] Fluticasone/Vilanterol [Breo Ellipta 100-25 Mcg INH] 1 ea PO DAILY 10/19/18 [ History Confirmed 01/20/19] Brimonidine Tartrate [Alphagan P] 1 drop OP DAILY 01/05/19 [History Confirmed ] Finasteride 5 mg PO DAILY 01/05/19 [History Confirmed 01/20/19] Pantoprazole 20 mg [Protonix 20MG Tablet] 40 mg PO DAILY 01/05/19 [ History Confirmed 01/20/19] Hydrocodone/APAP 5/325 [[place] 5/325 mg] 1 each PO Q4H PRN PRN 01/20/19 [ History Confirmed 01/20/19] Lisinopril 5 mg [Zestril 5 MG] 5 mg PO DAILY 01/20/19 [History Confirmed 01/20/19] Loperamide HCl 2 mg [Imodium 2 mg] 2 mg PO UD PRN 01/20/19 [History Confirmed 01/20/19] Ondansetron ODT 4 MG [Zofran Odt 4 mg] 4 mg PO Q6H PRN PRN 01/20/19 [ History Confirmed 01/20/19] Prochlorperazine Maleate 10 mg [Compazine 10 mg] 10 mg PO Q4HPRN PRN 01/20/19 [ History Confirmed 01/20/19] Allergies/Adverse Reactions: Allergies Allergy/AdvReac Type Severity Reaction Status Date / Time No Known Drug Allergies Allergy Verified 01/05/19 12:57 - Past Medical History Past Medical History: Yes Neurological History: No Pertinent History ENT History: Glaucoma Cardiac History: Hypertension, Other Respiratory History: No Pertinent History Endocrine Medical History: No Pertinent History Musculoskelatal History: No Pertinent History GI Medical History: Stomach Cancer History: Other Pyscho-Social History: No Pertinent History Male Reproductive Disorders: No Pertinent History, Prostate Problems, Scrotal Mass Comment: Hx skin CA (melanoma) - Past Surgical History Past Surgical History: Yes Neuro Surgical History: No Pertinent History Cardiac History: Pacemaker Respiratory Surgery: No Pertinent History GI Surgical History: Appendectomy, Cholecystectomy, Hernia Repair Genitourinary Surgical Hx: No Pertinent History Musculskeletal Surgical Hx: No Pertinent History Male Surgical History: No Pertinent History Other Surgical History: skin cancer removed 8 yrs ago - Social History Smoking Status: Never smoker Exposure to second hand smoke: No Alcohol: None Drug Use: none - Physical Exam Vital Signs: Vital Signs - 24 hr Temp Pulse Resp BP BP Pulse Ox 01/21/19 08:00 79 01/21/19 07:24 98.8 F 69 16 77/48 98 01/21/19 04:00 100.1 F 75 16 72/44 96 01/20/19 23:50 103 H 01/20/19 23:27 107 H 22 106/67 100 01/20/19 22:10 94 L 01/20/19 21:56 97 F 111 H 18 122/80 90 L 01/20/19 21:00 111 H 22 122/80 01/20/19 19:45 167 H 01/20/19 19:30 123 H 122/73 91 L 01/20/19 19:20 110 H 23 120/69 94 L 01/20/19 19:10 116 H 19 102/67 94 L 01/20/19 17:47 97.6 F 121 H 23 71/52 90 L Oxygen-Last 24 hours O2 Percentage 4 Liters = 36% O2 Percentage 3 Liters = 32% Oxygen Flowrate (L/min)-RT 3 General Appearance: no apparent distress, alert Neurologic Exam: cooperative, other (oriented to person and place; knows it's December 2018) Eye Exam: eyes nml inspection Ears, Nose, Throat Exam: moist mucous membranes Neck Exam: normal inspection, non-tender, No lymphadenopathy Respiratory Exam: diminished breath sounds, prolonged expirations, rhonchi (LLL) , No crackles/rales, No wheezing Cardiovascular Exam: regular rate/rhythm, normal heart sounds, No murmur Gastrointestinal/Abdomen Exam: soft, tenderness (LLQ, RLQ, suprapubic), No normal bowel sounds (decreased but present), No distention, No mass, No guarding , No rebound Back Exam: normal inspection, No rash Extremity Exam: normal inspection, No pedal edema, No swelling Skin Exam: normal color, warm, dry, No rash Results - Labs Lab/Micro Results: Lab Results-Last 24 Hours 07/18/19 07/18/19 07/18/19 Range/Units 17:45 17:48 17:48 WBC 3.1 L (4.0-10.5) K/mm3 RBC 4.11 (4.1-5.6) M/mm3 Hgb 12.8 (12.5-18.0) gm/dl Hct 38.0 L (42-50) % MCV 92.5 (78-100) fl MCH 31.1 (26-32) pg MCHC 33.7 (32-36) g/dl RDW 15.5 H (11.5-14.0) % Plt Count 142 L (150-450) K/mm3 MPV 8.3 (6-9.5) fl Gran % 82.3 H (36.0-66.0) % Eos # (Auto) 0.03 (0-0.5) Absolute Lymphs (auto) 0.36 L (1.0-4.6) Absolute Monos (auto) 0.14 (0.0-1.3) Lymphocytes % 11.6 L (24.0-44.0) % Monocytes % 4.5 (0.0-12.0) % Eosinophils % 1.0 (0.00-5.0) % Basophils % 0.6 (0.0-0.4) % Absolute Granulocytes 2.56 (1.4-6.9) Segmented Neutrophils (36.-66.) % Band Neutrophils (0.0-2.0) % Lymphocytes (Manual) (24-44) % Monocytes (Manual) (0.0-12.0) % Basophils (Manual) (0.0-1.0) % Basophils # 0.02 (0-0.4) Platelet Estimate (NORMAL) RBC Morphology Sodium 135 L (137-145) mmol/L Potassium 3.3 L (3.5-5.1) mmol/L Chloride 105 (98-107) mmol/L Carbon Dioxide 17 L (22-30) mmol/L Anion Gap 16.1 H (5-15) MEQ/L BUN 21 H (9-20) mg/dL Creatinine 1.57 H (0.66-1.25) mg/dL Estimated GFR 44.7 ML/MIN Glucose 217 H (74-106) mg/dL Lactic Acid 6.1 H (0.4-2.0) Calcium 9.2 (8.4-10.2) mg/dL Total Bilirubin 1.20 (0.2-1.3) mg/dL AST 26 (17-59) U/L ALT 17 (0-50) U/L Alkaline Phosphatase 63 (38-126) U/L Troponin I (0.000-0.034) ng/mL Serum Total Protein 6.2 L (6.3-8.2) g/dL Albumin 3.4 L (3.5-5.0) g/dL Amylase 389 H (30-110) U/L Lipase 163 (23-300) U/L Urine Color (YELLOW) Urine Appearance (CLEAR) Urine pH (5-6) Ur Specific Dray[place] (1.005-1.025) Urine Protein (Negative) Urine Ketones (NEGATIVE) Urine Blood (0-5) Jonatan/ul Urine Nitrite (NEGATIVE) Urine Bilirubin (NEGATIVE) Urine Urobilinogen (0-1) mg/dL Ur Leukocyte Esterase (NEGATIVE) Urine WBC (Auto) (0-5) /HPF Urine RBC (Auto) (0-2) /HPF U Epithel Cells (Auto) (FEW) /HPF Urine Bacteria (Auto) (NEGATIVE) /HPF Urine Mucus (Auto) (NEGATIVE) /HPF Urine Culture Reflexed (NO) Urine Glucose (NEGATIVE) mg/dL 01/20/19 01/20/19 01/20/19 Range/Units 17:48 18:15 21:05 WBC (4.0-10.5) K/mm3 RBC (4.1-5.6) M/mm3 Hgb (12.5-18.0) gm/dl Hct (42-50) % MCV (78-100) fl MCH (26-32) pg MCHC (32-36) g/dl RDW (11.5-14.0) % Plt Count (150-450) K/mm3 MPV (6-9.5) fl Gran % (36.0-66.0) % Eos # (Auto) (0-0.5) Absolute Lymphs (auto) (1.0-4.6) Absolute Monos (auto) (0.0-1.3) Lymphocytes % (24.0-44.0) % Monocytes % (0.0-12.0) % Eosinophils % (0.00-5.0) % Basophils % (0.0-0.4) % Absolute Granulocytes (1.4-6.9) Segmented Neutrophils (36.-66.) % Band Neutrophils (0.0-2.0) % Lymphocytes (Manual) (24-44) % Monocytes (Manual) (0.0-12.0) % Basophils (Manual) (0.0-1.0) % Basophils # (0-0.4) Platelet Estimate (NORMAL) RBC Morphology Sodium (137-145) mmol/L Potassium (3.5-5.1) mmol/L Chloride (98-107) mmol/L Carbon Dioxide (22-30) mmol/L Anion Gap (5-15) MEQ/L BUN (9-20) mg/dL Creatinine (0.66-1.25) mg/dL Estimated GFR ML/MIN Glucose (74-106) mg/dL Lactic Acid 1.7 (0.4-2.0) Calcium (8.4-10.2) mg/dL Total Bilirubin (0.2-1.3) mg/dL AST (17-59) U/L ALT (0-50) U/L Alkaline Phosphatase (38-126) U/L Troponin I 0.029 (0.000-0.034) ng/mL Serum Total Protein (6.3-8.2) g/dL Albumin (3.5-5.0) g/dL Amylase (30-110) U/L Lipase (23-300) U/L Urine Color YELLOW (YELLOW) Urine Appearance CLEAR (CLEAR) Urine pH 7.0 (5-6) Ur Specific [place] 1.009 (1.005-1.025) Urine Protein NEGATIVE (Negative) Urine Ketones NEGATIVE (NEGATIVE) Urine Blood NEGATIVE (0-5) Jonatan/ul Urine Nitrite NEGATIVE (NEGATIVE) Urine Bilirubin NEGATIVE (NEGATIVE) Urine Urobilinogen 4 (0-1) mg/dL Ur Leukocyte Esterase NEGATIVE (NEGATIVE) Urine WBC (Auto) NONE (0-5) /HPF Urine RBC (Auto) NONE (0-2) /HPF U Epithel Cells (Auto) NONE (FEW) /HPF Urine Bacteria (Auto) NONE SEEN (NEGATIVE) /HPF Urine Mucus (Auto) SLIGHT (NEGATIVE) /HPF Urine Culture Reflexed NO (NO) Urine Glucose NEGATIVE (NEGATIVE) mg/dL 01/21/19 01/21/19 Range/Units 05:20 05:20 WBC 2.4 L (4.0-10.5) K/mm3 RBC 3.27 L (4.1-5.6) M/mm3 Hgb 10.1 L D (12.5-18.0) gm/dl Hct 30.2 L (42-50) % MCV 92.4 (78-100) fl MCH 30.8 (26-32) pg MCHC 33.4 (32-36) g/dl RDW 15.1 H (11.5-14.0) % Plt Count 112 L (150-450) K/mm3 MPV 9.1 (6-9.5) fl Gran % (36.0-66.0) % Eos # (Auto) (0-0.5) Absolute Lymphs (auto) (1.0-4.6) Absolute Monos (auto) (0.0-1.3) Lymphocytes % (24.0-44.0) % Monocytes % (0.0-12.0) % Eosinophils % (0.00-5.0) % Basophils % (0.0-0.4) % Absolute Granulocytes 2.22 (1.4-6.9) Segmented Neutrophils 51 (36.-66.) % Band Neutrophils 41 H (0.0-2.0) % Lymphocytes (Manual) 3 L (24-44) % Monocytes (Manual) 4 (0.0-12.0) % Basophils (Manual) 1 (0.0-1.0) % Basophils # (0-0.4) Platelet Estimate DECREASED (NORMAL) RBC Morphology NORMAL Sodium 136 L (137-145) mmol/L Potassium 4.5 D (3.5-5.1) mmol/L Chloride 110 H (98-107) mmol/L Carbon Dioxide 19 L (22-30) mmol/L Anion Gap 11.1 (5-15) MEQ/L BUN 31 H (9-20) mg/dL Creatinine 1.58 H (0.66-1.25) mg/dL Estimated GFR 44.4 ML/MIN Glucose 119 H (74-106) mg/dL Lactic Acid (0.4-2.0) Calcium 8.1 L (8.4-10.2) mg/dL Total Bilirubin 1.20 (0.2-1.3) mg/dL AST 22 (17-59) U/L ALT 14 (0-50) U/L Alkaline Phosphatase 38 (38-126) U/L Troponin I (0.000-0.034) ng/mL Serum Total Protein 4.7 L (6.3-8.2) g/dL Albumin 2.4 L (3.5-5.0) g/dL Amylase (30-110) U/L Lipase (23-300) U/L Urine Color (YELLOW) Urine Appearance (CLEAR) Urine pH (5-6) Ur Specific [place] (1.005-1.025) Urine Protein (Negative) Urine Ketones (NEGATIVE) Urine Blood (0-5) Jonatan/ul Urine Nitrite (NEGATIVE) Urine Bilirubin (NEGATIVE) Urine Urobilinogen (0-1) mg/dL Ur Leukocyte Esterase (NEGATIVE) Urine WBC (Auto) (0-5) /HPF Urine RBC (Auto) (0-2) /HPF U Epithel Cells (Auto) (FEW) /HPF Urine Bacteria (Auto) (NEGATIVE) /HPF Urine Mucus (Auto) (NEGATIVE) /HPF Urine Culture Reflexed (NO) Urine Glucose (NEGATIVE) mg/dL - Radiology Impressions Radiology Exams & Impressions: Radiology Procedures Category Date Time Status ABDOMEN AND PELVIS W/0 CONTRAS [CT] Stat Exams 01/20/19 19:18 Taken CHEST 1 VIEW (PORTABLE) Stat Exams 01/20/19 17:47 Taken - Other Procedures and Tests Respiratory Therapy 01/20/19 22:54 Oxygen Nasal Cannula 3 lpm Assessment/Plan (1) Sepsis Current Visit: Yes Status: Acute Qualifiers: Sepsis type: sepsis due to unspecified organism Qualified Code(s): A41.9 - Sepsis, unspecified organism Assessment & Plan: With hypotension and end organ damage (renal) - he is on levophed currently. On Meropenem and flagyl day #2. Will give another bolus of IV fluid. (2) Gastric cancer Current Visit: Yes Status: Acute Qualifiers: Malignant neoplasm of stomach location: unspecified location Qualified Code (s): C16.9 - Malignant neoplasm of stomach, unspecified Assessment & Plan: Sees Dr. Urbina. Getting chemotherapy and radiation tx. (3) Diverticulitis Current Visit: Yes Status: Acute Code(s): K57.92 - DVTRCLI OF INTEST, PART UNSP, W/O PERF OR ABSCESS W/O BLEED (4) Pneumonia Current Visit: Yes Status: Acute Qualifiers: Pneumonia type: due to unspecified organism Laterality: left Lung location: lower lobe of lung Qualified Code(s): J18.1 - Lobar pneumonia, unspecified organism Code(s): J18.9 - PNEUMONIA, UNSPECIFIED ORGANISM (5) Ureterolithiasis Current Visit: Yes Status: Acute (6) Pancytopenia Current Visit: Yes Status: Chronic Assessment & Plan: likely due to chemotherapy Code(s): D61.818 - OTHER PANCYTOPENIA (7) DNR (do not resuscitate) Current Visit: Yes Status: Acute Assessment & Plan: Family just wants his pain to be controlled.
[2019-01-21] MEDS ORDERED: Sodium Chloride 0.9% 500 ML 500 ML IV ONE ×3 (15:16→21:00)
[2019-01-22] MEDS: LEVOPHED 4 MG/4 ML 4,000 MCG in Dextrose 5%/Water IV Soln. 500 ML 500 ML IV PRN (00:47)
[2019-01-22] MEDS: MORPHINE SULFATE 2 MG INJ IV PRN (03:24)
[2019-01-22] MEDS: FLAGYL 500 MG IVPB 500 MG/100 ML BAG IV SCH ×3 (05:40→18:06)
[2019-01-22] MEDS: MERREM 500MG 500 MG in Sodium Chloride 100ML MINI-BAG PLUS 100 ML IV SCH ×3 (08:59→21:21)
[2019-01-22] MEDS ORDERED: PHARMACY DOSING REQUEST MC ONE (09:46)
[2019-01-22] MEDS: Sodium Chloride 0.9% 1000 ML 1,000 ML IV SCH ×2 (10:38→22:22)
[2019-01-22] MEDS ORDERED: INTRALIPID 20% 250 ML 250 ML, TPN Electrolytes 40 ML, Multitrace-4 Conc Vial 1 ML*** 1 ... IV SCH ×5 (14:00)
[2019-01-22] MEDS: PROTONIX 40 MG IV IV SCH (21:33)
[2019-01-22] MEDS: Sodium Chloride 0.9% 10 ML FLUSH Syringe IV SCH (22:00)
[2019-01-22] MEDS ORDERED: Sodium Chloride 0.9% 1000 ML 1,000 ML ONE (22:22)
[2019-01-23] MEDS: FLAGYL 500 MG IVPB 500 MG/100 ML BAG IV SCH ×4 (00:04→19:00)
[2019-01-23] MEDS: MORPHINE SULFATE 2 MG INJ IV PRN (04:33)
[2019-01-23 05:57] LABS: Hematocrit 23.9 % (42-50); Hemoglobin 8.1 gm/dl (12.5-18.0); Mean Cell Volume 93.4 fl (78-100); Mean Corpuscular Hemoglobin 31.6 pg (26-32); Mean Corpuscular Hgb Concent. 33.9 g/dl (32-36); Mean Platelet Volume 9.2 fl (6-9.5); Platelet Count 75 K/mm3 (150-450); Red Blood Count 2.56 M/mm3 (4.1-5.6); Red Cell Distribution Width 15.1 % (11.5-14.0); White Blood Count 5.9 K/mm3 (4.0-10.5)
[2019-01-23] MEDS: Sodium Chloride 0.9% 10 ML FLUSH Syringe IV SCH ×2 (06:16→22:00)
[2019-01-23 06:18] LABS: ALKALINE PHOSPHATASE 38 U/L (38-126); ANION GAP 4.4 MEQ/L (5-15); BLOOD UREA NITROGEN 25 mg/dL (9-20); CHLORIDE 113 mmol/L (98-107); Calcium 7.4 mg/dL (8.4-10.2); Carbon Dioxide 21 mmol/L (22-30); Creatinine 1 0.75 mg/dL (0.66-1.25); Glucose 142 mg/dL (74-106); Potassium 3.6 mmol/L (3.5-5.1); SGOT/AST 20 U/L (17-59); SGPT/ALT 10 U/L (0-50); SODIUM 134 mmol/L (137-145); Total Protein 4.4 g/dL (6.3-8.2)
[2019-01-23] MEDS: MERREM 500MG 500 MG in Sodium Chloride 100ML MINI-BAG PLUS 100 ML IV SCH ×3 (06:38→21:43)
[2019-01-23] MEDS ORDERED: INTRALIPID 20% 250 ML 250 ML, TPN Electrolytes 40 ML, Multitrace-4 Conc Vial 1 ML*** 1 ... IV SCH ×7 (14:00)
[2019-01-23] MEDS: [UNRECOGNIZED DRUG - OTHER] IV SCH ×7 (14:44)
[2019-01-23] MEDS: TPN ELECTROLYTES IV SCH ×7 (14:44)
[2019-01-23] MEDS: INTRALIPID 20% IV SCH ×7 (14:44)
[2019-01-23] MEDS ORDERED: Artificial Tears 15 ML OP PRN (15:23)
[2019-01-23] MEDS: PROTONIX 40 MG IV IV SCH (21:44)
[2019-01-24] MEDS: FLAGYL 500 MG IVPB 500 MG/100 ML BAG IV SCH ×4 (00:59→18:39)
[2019-01-24] MEDS: TPN ELECTROLYTES IV SCH ×14 (01:43→18:39)
[2019-01-24] MEDS: INTRALIPID 20% IV SCH ×14 (01:43→18:39)
[2019-01-24] MEDS: [UNRECOGNIZED DRUG - OTHER] IV SCH ×14 (01:43→18:39)
[2019-01-24] MEDS: Sodium Chloride 0.9% 10 ML FLUSH Syringe IV SCH ×4 (05:32→22:33)
[2019-01-24 05:46] LABS: Hematocrit 24.7 % (42-50); Hemoglobin 8.6 gm/dl (12.5-18.0); Mean Cell Volume 91.8 fl (78-100); Mean Corpuscular Hgb Concent. 34.8 g/dl (32-36); Mean Platelet Volume 10.2 fl (6-9.5); Platelet Count 82 K/mm3 (150-450); Red Blood Count 2.69 M/mm3 (4.1-5.6); Red Cell Distribution Width 14.9 % (11.5-14.0); White Blood Count 5.5 K/mm3 (4.0-10.5)
[2019-01-24] MEDS: MERREM 500MG 500 MG in Sodium Chloride 100ML MINI-BAG PLUS 100 ML IV SCH (06:06)
[2019-01-24 06:13] LABS: ALBUMIN 2.1 g/dL (3.5-5.0); ANION GAP 4.7 MEQ/L (5-15); BLOOD UREA NITROGEN 20 mg/dL (9-20); CHLORIDE 109 mmol/L (98-107); Calcium 7.6 mg/dL (8.4-10.2); Carbon Dioxide 23 mmol/L (22-30); Creatinine 1 0.61 mg/dL (0.66-1.25); Glucose 122 mg/dL (74-106); MAGNESIUM 1.9 mg/dL (1.6-2.3); Potassium 3.4 mmol/L (3.5-5.1); SODIUM 134 mmol/L (137-145); Total Protein 4.5 g/dL (6.3-8.2)
[2019-01-24 06:18] LABS: Mean Corpuscular Hemoglobin 31.9 pg (26-32)
--- NOTE | 2019-01-24 08:51 | PCM.NOTE ---
Date and Time: 01/24/19 0846 Subjective Assessment: His bp was 130s-150s in the past 24 hours. He is tolerating small amounts of PO. On TPN. - Review of Systems Constitutional: No Fever Abdominal/Gastrointestinal: Appetite Changes (chronically low appetite ) Objective Exam General Appearance: no apparent distress, alert Neurologic Exam: oriented x 3, cooperative Skin Exam: normal color, warm, dry, No rash Respiratory Exam: lungs clear, diminished breath sounds, No crackles/rales, No rhonchi, No wheezing Cardiovascular Exam: regular rate/rhythm, normal heart sounds, No murmur Gastrointestinal/Abdomen Exam: soft, normal bowel sounds, tenderness (mild LLQ) , No distention, No mass, No guarding, No rebound Extremity Exam: normal inspection, No pedal edema, No swelling Back Exam: normal inspection, No rash OBJECTIVE DATA Vital Signs: Vital Signs - 24 hr Temp Pulse Resp BP Pulse Ox 01/24/19 07:55 99 01/24/19 07:25 99.3 F 67 20 157/68 100 01/24/19 04:00 97.8 F 66 21 154/77 99 01/24/19 00:13 98.0 F 67 18 159/76 99 01/24/19 00:01 67 01/23/19 21:18 99 01/23/19 20:00 98.2 F 60 19 157/77 100 01/23/19 16:17 97.9 F 68 20 153/69 95 01/23/19 16:00 60 01/23/19 15:53 98 F 63 20 95 01/23/19 12:25 98.2 F 63 22 144/67 95 01/23/19 12:00 61 Oxygen-Last 24 hours O2 Percentage 3 Liters = 32% O2 Percentage 3 Liters = 32% O2 Percentage 2 Liters = 28% O2 Percentage 4 Liters = 36% O2 Percentage 3 Liters = 32% O2 Percentage 3 Liters = 32% Pain Assessment - Last Documented Pain Intensity 0 Pain Scale Used 0-10 Pain Scale Intake and Output: Intake & Output 01/21/19 01/22/19 01/23/19 01/24/19 11:59 11:59 11:59 11:59 Intake Total 3238 8060 4221 3134 Output Total 385 516 952 1023 Balance 2853 4531 3421 1534 Weight 79.379 kg 79.8 kg 90.4 kg Lab Results: Accuchecks Date 01/24/19 Date 01/24/19 Time 06:21 Time 00:00 Accucheck Value: 122 Accucheck Value: 158 Accucheck Value: 135 Accucheck Value: 160 Lab Results-Last 24 Hours 01/23/19 01/24/19 01/24/19 Range/Units 05:10 05:30 05:30 WBC 5.5 (4.0-10.5) K/mm3 RBC 2.69 L (4.1-5.6) M/mm3 Hgb 8.6 L (12.5-18.0) gm/dl Hct 24.7 L (42-50) % MCV 91.8 (78-100) fl MCH 31.9 (26-32) pg MCHC 34.8 (32-36) g/dl RDW 14.9 H (11.5-14.0) % Plt Count 82 L (150-450) K/mm3 MPV 10.2 H (6-9.5) fl Sodium 134 L (137-145) mmol/L Potassium 3.4 L (3.5-5.1) mmol/L Chloride 109 H (98-107) mmol/L Carbon Dioxide 23 (22-30) mmol/L Anion Gap 4.7 L (5-15) MEQ/L BUN 20 (9-20) mg/dL Creatinine 0.61 L (0.66-1.25) mg/dL Estimated GFR > 60.0 ML/MIN Glucose 122 H (74-106) mg/dL Hemoglobin A1c 5.86 (4.5-6.0) % Calcium 7.6 L (8.4-10.2) mg/dL Magnesium 1.9 (1.6-2.3) mg/dL Serum Total Protein 4.5 L (6.3-8.2) g/dL Albumin 2.1 L (3.5-5.0) g/dL Slides for Path Review YES Multi-Disciplinary Progress Notes: Multi-Disciplinary Progress Notes 01/23/19 10:23 Nutrition Note by Uzma Madrigal F/primo note: Note TPN to be started at 95cc/hour. Feeding provides 2600 kcals and 100 gms protein which exceeds pts needs of 1800 kcals and 75 gms protein. Recommend running feeding at 70 cc/hour to provide 1924 kcals and 74 gms protein. Will monitor and f/u prn. Linsey NAILA Initialized on 01/23/19 10:23 - END OF NOTE Assessment/Plan (1) Pneumonia Current Visit: Yes Status: Acute Qualifiers: Pneumonia type: due to unspecified organism Laterality: left Lung location: lower lobe of lung Qualified Code(s): J18.1 - Lobar pneumonia, unspecified organism Assessment & Plan: on day #5 of merrem and flagyl. Greatly improved. Will change merrem to levaquin and leave pt on flagyl. May need swing bed admission this week (would be ok with him going to swing bed tomorrow). Code(s): J18.9 - PNEUMONIA, UNSPECIFIED ORGANISM (2) Sepsis Current Visit: Yes Status: Resolved Qualifiers: Sepsis type: sepsis due to unspecified organism Qualified Code(s): A41.9 - Sepsis, unspecified organism Assessment & Plan: Blood cx neg x 2. Off levophed. (3) Gastric cancer Current Visit: Yes Status: Chronic Qualifiers: Malignant neoplasm of stomach location: unspecified location Qualified Code (s): C16.9 - Malignant neoplasm of stomach, unspecified (4) Diverticulitis Current Visit: Yes Status: Acute Code(s): K57.92 - DVTRCLI OF INTEST, PART UNSP, W/O PERF OR ABSCESS W/O BLEED (5) Ureterolithiasis Current Visit: Yes Status: Acute (6) Pancytopenia Current Visit: Yes Status: Chronic Assessment & Plan: hgb is better today, up to 8.6 from 8.1 yesterday. will check daily. Code(s): D61.818 - OTHER PANCYTOPENIA (7) DNR (do not resuscitate) Current Visit: Yes Status: Acute (8) Nutrition disorder Current Visit: Yes Status: Acute Assessment & Plan: on TPN currently. Code(s): E63.9 - NUTRITIONAL DEFICIENCY, UNSPECIFIED
[2019-01-24] MEDS: Levofloxacin 500MG/100ML D5W 500 MG/100 ML BAG IV SCH (10:37)
[2019-01-24] MEDS ORDERED: Sodium Chloride 0.9% 10 ML FLUSH Syringe IV PRN (13:00)
[2019-01-24] MEDS ORDERED: IMODIUM 2 MG PO PRN (16:07)
[2019-01-24] MEDS ORDERED: NON-FORMULARY ITEM (Prochlorperazine Maleate 10 Mg [Compazine 10 Mg] 10 MG) PO PRN (16:07)
[2019-01-24] MEDS ORDERED: Compazine 5 MG PO PRN (16:18)
[2019-01-24] MEDS: PLAVIX 75 MG Tablet PO SCH (18:38)
[2019-01-24] MEDS: Advair Hfa 115/21 Common canister IH SCH (20:16)
[2019-01-24] MEDS ORDERED: NON-FORMULARY ITEM (Ranitidine Hcl [Zantac] 150 MG) PO SCH (22:00)
[2019-01-24] MEDS: MORPHINE SULFATE 2 MG INJ IV PRN (22:10)
[2019-01-24] MEDS: Alphagan P 0.15% OP SCH (22:31)
[2019-01-24] MEDS: LUMIGAN 0.01% 2.5 ML OP SCH (22:32)
[2019-01-24] MEDS: Protonix 40MG Tablet PO SCH (22:32)
[2019-01-25] MEDS: FLAGYL 500 MG IVPB 500 MG/100 ML BAG IV SCH ×5 (00:06→23:52)
[2019-01-25 06:30] LABS: Hematocrit 25.5 % (42-50); Hemoglobin 8.6 gm/dl (12.5-18.0); Mean Cell Volume 91.1 fl (78-100); Mean Corpuscular Hemoglobin 30.7 pg (26-32); Mean Corpuscular Hgb Concent. 33.7 g/dl (32-36); Mean Platelet Volume 10.2 fl (6-9.5); Platelet Count 98 K/mm3 (150-450); Red Cell Distribution Width 14.9 % (11.5-14.0); White Blood Count 4.8 K/mm3 (4.0-10.5)
[2019-01-25 06:48] LABS: BLOOD UREA NITROGEN 18 mg/dL (9-20); CHLORIDE 106 mmol/L (98-107); Calcium 7.3 mg/dL (8.4-10.2); Carbon Dioxide 23 mmol/L (22-30); Creatinine 1 0.62 mg/dL (0.66-1.25); Glucose 118 mg/dL (74-106); Potassium 3.4 mmol/L (3.5-5.1); SODIUM 131 mmol/L (137-145)
[2019-01-25] MEDS: Advair Hfa 115/21 Common canister IH SCH ×2 (07:17→20:24)
--- NOTE | 2019-01-25 09:02 | PCM.NOTE ---
Date and Time: 01/25/19 0858 Subjective Assessment: Pt is feeling pretty good today aside from his urinary catheter. Family would like for him to eat more. - Review of Systems Constitutional: No Fever Respiratory: Cough, Wheezing (has gotten neb tx) Objective Exam General Appearance: no apparent distress, alert Neurologic Exam: oriented x 3, cooperative Skin Exam: normal color, warm, dry, No rash Respiratory Exam: diminished breath sounds, wheezing (exp scattered), No crackles/rales, No rhonchi Cardiovascular Exam: regular rate/rhythm, normal heart sounds, No murmur Gastrointestinal/Abdomen Exam: soft, normal bowel sounds, No tenderness, No distention, No mass, No guarding, No rebound Extremity Exam: normal inspection, No pedal edema, No swelling Back Exam: normal inspection, No rash OBJECTIVE DATA Vital Signs: Vital Signs - 24 hr Temp Pulse Resp BP Pulse Ox 01/25/19 07:45 98.2 F 70 18 136/65 97 01/25/19 07:18 72 20 97 01/25/19 04:00 98.3 F 68 20 133/69 98 01/25/19 00:00 98.5 F 78 24 136/64 96 01/24/19 20:21 66 18 96 01/24/19 20:20 96 01/24/19 20:00 98.5 F 78 24 136/64 96 01/24/19 16:00 99.7 F 68 20 120/62 97 01/24/19 12:00 98.1 F 73 18 121/58 99 Pain Assessment - Last Documented Pain Intensity 1 Pain Scale Used 0-10 Pain Scale Intake and Output: Intake & Output 01/22/19 01/23/19 01/24/19 01/25/19 11:59 11:59 11:59 11:59 Intake Total 5216 4221 3134 420 Output Total 176 745 0213 1450 Balance 4381 0341 1534 1030 Weight 79.8 kg 90.4 kg 87.6 kg Lab Results: Accuchecks Date 01/25/19 Date 01/25/19 Date 01/24/19 Date 01/24/19 Time 06:00 Time 00:00 Time 17:00 Time 11:30 Accucheck Value: 132 Accucheck Value: 142 Accucheck Value: 141 Accucheck Value: 133 Lab Results-Last 24 Hours 01/25/19 01/25/19 Range/Units 05:07 05:07 WBC 4.8 (4.0-10.5) K/mm3 RBC 2.80 L (4.1-5.6) M/mm3 Hgb 8.6 L (12.5-18.0) gm/dl Hct 25.5 L (42-50) % MCV 91.1 (78-100) fl MCH 30.7 (26-32) pg MCHC 33.7 (32-36) g/dl RDW 14.9 H (11.5-14.0) % Plt Count 98 L (150-450) K/mm3 MPV 10.2 H (6-9.5) fl Sodium 131 L (137-145) mmol/L Potassium 3.4 L (3.5-5.1) mmol/L Chloride 106 (98-107) mmol/L Carbon Dioxide 23 (22-30) mmol/L Anion Gap 5.0 (5-15) MEQ/L BUN 18 (9-20) mg/dL Creatinine 0.62 L (0.66-1.25) mg/dL Estimated GFR > 60.0 ML/MIN Glucose 118 H (74-106) mg/dL Calcium 7.3 L (8.4-10.2) mg/dL Slides for Path Review YES Multi-Disciplinary Progress Notes: Multi-Disciplinary Progress Notes 01/24/19 10:24 Nutrition Note by Uzma Madrigal F/u Note: Note TPN running at 70cc/hour per recommendation. Pt also receiving full liquid diet with 25% po intake. Labs 01/24= Na 134, K+ 3.4, Cr 0.61, glu 122, alb 2.1, hgb 8.6, hct 24.7. Will con't to monitor and f/u prn. TNAILA Rubin Initialized on 01/24/19 10:24 - END OF NOTE Assessment/Plan (1) Pneumonia Current Visit: Yes Status: Acute Qualifiers: Pneumonia type: due to unspecified organism Laterality: left Lung location: lower lobe of lung Qualified Code(s): J18.1 - Lobar pneumonia, unspecified organism Assessment & Plan: Sounds good, just some wheezing, has been getting nebs. Code(s): J18.9 - PNEUMONIA, UNSPECIFIED ORGANISM (2) Gastric cancer Current Visit: Yes Status: Chronic Qualifiers: Malignant neoplasm of stomach location: unspecified location Qualified Code (s): C16.9 - Malignant neoplasm of stomach, unspecified (3) Diverticulitis Current Visit: Yes Status: Acute Assessment & Plan: on IV levaquin and flagyl. day #2 levaquin. day #5 flagyl. NTTP abd today. Code(s): K57.92 - DVTRCLI OF INTEST, PART UNSP, W/O PERF OR ABSCESS W/O BLEED (4) Ureterolithiasis Current Visit: Yes Status: Acute (5) Pancytopenia Current Visit: Yes Status: Chronic Assessment & Plan: plt up to 98 today. Code(s): D61.818 - OTHER PANCYTOPENIA (6) DNR (do not resuscitate) Current Visit: Yes Status: Acute (7) Nutrition disorder Current Visit: Yes Status: Acute Assessment & Plan: Spoke w pharmacy, thank you. WIll start megace and ensure. May be able to d/c tpn in next couple of days. Code(s): E63.9 - NUTRITIONAL DEFICIENCY, UNSPECIFIED (8) Muscular deconditioning Current Visit: Yes Status: Acute Assessment & Plan: May need swing bed stay - could do that today or tomorrow. Code(s): R29.898 - OTH SYMPTOMS AND SIGNS INVOLVING THE MUSCULOSKELETAL SYSTEM
[2019-01-25] MEDS ORDERED: VILANTEROL PO SCH (10:00)
[2019-01-25] MEDS ORDERED: FLUTICASONE PO SCH (10:00)
[2019-01-25] MEDS ORDERED: Protonix 20MG Tablet PO SCH (10:00)
[2019-01-25] MEDS ORDERED: BRIMONIDINE TARTRATE OP SCH (10:00)
[2019-01-25] MEDS: Levofloxacin 500MG/100ML D5W 500 MG/100 ML BAG IV SCH (10:03)
[2019-01-25] MEDS: Pepcid 20 MG PO SCH (10:09)
[2019-01-25] MEDS: Flomax 0.4 MG PO SCH (10:09)
[2019-01-25] MEDS: PLAVIX 75 MG Tablet PO SCH (10:09)
[2019-01-25] MEDS: Proscar 5 MG PO SCH (10:09)
[2019-01-25] MEDS: Alphagan P 0.15% OP SCH ×2 (10:09→21:52)
[2019-01-25] MEDS: Zestril 5 MG PO SCH (10:09)
[2019-01-25] MEDS: Megace 40 MG/ML PO SCH (10:11)
[2019-01-25] MEDS: INTRALIPID 20% IV SCH ×7 (11:19)
[2019-01-25] MEDS: TPN ELECTROLYTES IV SCH ×7 (11:19)
[2019-01-25] MEDS: [UNRECOGNIZED DRUG - OTHER] IV SCH ×7 (11:19)
[2019-01-25] MEDS ORDERED: Advair Hfa 230/21 Mcg COMMON CANISTER IH SCH (19:00)
[2019-01-25] MEDS: Sodium Chloride 0.9% 10 ML FLUSH Syringe IV SCH (21:52)
[2019-01-25] MEDS: LUMIGAN 0.01% 2.5 ML OP SCH (21:53)
[2019-01-25] MEDS: Protonix 40MG Tablet PO SCH (21:53)
[2019-01-25] MEDS ORDERED: TYLENOL 325 MG PO PRN (23:49)
[2019-01-26] MEDS ORDERED: TPN ELECTROLYTES IV SCH ×7 (02:00)
[2019-01-26] MEDS ORDERED: [UNRECOGNIZED DRUG - OTHER] IV SCH ×7 (02:00)
[2019-01-26] MEDS ORDERED: INTRALIPID 20% IV SCH ×7 (02:00)
[2019-01-26] MEDS: FLAGYL 500 MG IVPB 500 MG/100 ML BAG IV SCH ×2 (05:29→12:14)
[2019-01-26 06:01] LABS: Hematocrit 24.6 % (42-50); Hemoglobin 8.6 gm/dl (12.5-18.0); Mean Cell Volume 89.8 fl (78-100); Mean Platelet Volume 9.7 fl (6-9.5); Platelet Count 121 K/mm3 (150-450); Red Blood Count 2.74 M/mm3 (4.1-5.6); Red Cell Distribution Width 14.9 % (11.5-14.0); White Blood Count 4.2 K/mm3 (4.0-10.5)
[2019-01-26 06:22] LABS: Mean Corpuscular Hemoglobin 31.3 pg (26-32)
[2019-01-26 06:48] LABS: ALKALINE PHOSPHATASE 47 U/L (38-126); ANION GAP 6.5 MEQ/L (5-15); BLOOD UREA NITROGEN 17 mg/dL (9-20); CHLORIDE 107 mmol/L (98-107); Calcium 7.5 mg/dL (8.4-10.2); Carbon Dioxide 22 mmol/L (22-30); Creatinine 1 0.64 mg/dL (0.66-1.25); Glucose 121 mg/dL (74-106); MAGNESIUM 1.9 mg/dL (1.6-2.3); Potassium 3.5 mmol/L (3.5-5.1); SGOT/AST 19 U/L (17-59); SGPT/ALT 9 U/L (0-50); SODIUM 133 mmol/L (137-145); Total Protein 4.4 g/dL (6.3-8.2)
[2019-01-26] MEDS: Advair Hfa 115/21 Common canister IH SCH (06:59)
[2019-01-26] MEDS: Sodium Chloride 0.9% 10 ML FLUSH Syringe IV SCH ×3 (08:11→08:13)
--- NOTE | 2019-01-26 09:06 | PCM.DS ---
Discharge Summary Date of Admission: 01/20/19 20:35 Admitting Physician: TANIYA MADERA Consults: Consults on Case 01/22/19 13:30 Nutritional Consult ROUTINE Primary Care Provider: NO FAMILY DOCTOR Allergies Allergies No Known Drug Allergies Allergy (Verified 01/05/19 12:57) Hospital Summary - Hospital Course Hospital Course: is a 88 year old male pt o fmine from [facility] with COPD, and HTN, recent pacemaker placement, currently being treated for gastric ca who was admitted through ER with diverticulitis, LLL pneumonia, and nonobstructing renal stone. He had been having constipation for about a week, then had sudden onset of increased abd pain. He vomited in the ER then his BP was noted to be in the 70s systolic. His lactate was 6.1. He was given IV flujids and started on dopamine, which was then changed to levophed drip. He did get off the drip the next day. IV antibiotics were changed to levaquin and flagyl after blood cultures were negative. He has been eating poorly and was started on TPN. Per pharmacy started pt on Megace and ensure yesterday, thank you. Would like to decrease TPN as his po intake increases. Pt was anemic down to 8.1 hgb, but now has been steady at 8.6 for 3d. Renal function was decreased at admission but has been normal for the past few days. Pt's evans catheter was d/c'd yesterday; he has been urinating but is frequently incontinent. He will be discharged to swing bed in order to continue IV antibiotics and to have PT. - Vitals & Intake/Output Vital Signs: Vital Signs Temperature 98.7 F 01/26/19 08:00 Pulse Rate 70 01/26/19 08:00 Respiratory Rate 22 01/26/19 08:00 Blood Pressure 107/51 01/26/19 08:00 O2 Sat by Pulse Oximetry 96 01/26/19 08:00 Oxygen-Last Documented O2 Percentage 3 Liters = 32% Intake & Output: Intake & Output 01/23/19 01/24/19 01/25/19 01/26/19 11:59 11:59 11:59 11:59 Intake Total 4221 3134 420 2981 Output Total 800 1600 1450 1375 Balance 3421 1534 -1030 1606 Weight 79.8 kg 90.4 kg 87.6 kg 87.7 kg - Lab Result Diagrams: 01/26/19 05:40 01/26/19 05:40 Lab Results-Last 24 Hrs: Accuchecks Accucheck Value: 121 Accucheck Value: 148 Accucheck Value: 144 Lab Results-Last 24 Hours 01/26/19 01/26/19 Range/Units 05:40 05:40 WBC 4.2 (4.0-10.5) K/mm3 RBC 2.74 L (4.1-5.6) M/mm3 Hgb 8.6 L (12.5-18.0) gm/dl Hct 24.6 L (42-50) % MCV 89.8 (78-100) fl MCH 31.3 (26-32) pg MCHC 35.0 (32-36) g/dl RDW 14.9 H (11.5-14.0) % Plt Count 121 L (150-450) K/mm3 MPV 9.7 H (6-9.5) fl Sodium 133 L (137-145) mmol/L Potassium 3.5 (3.5-5.1) mmol/L Chloride 107 (98-107) mmol/L Carbon Dioxide 22 (22-30) mmol/L Anion Gap 6.5 (5-15) MEQ/L BUN 17 (9-20) mg/dL Creatinine 0.64 L (0.66-1.25) mg/dL Estimated GFR > 60.0 ML/MIN Glucose 121 H (74-106) mg/dL Calcium 7.5 L (8.4-10.2) mg/dL Magnesium 1.9 (1.6-2.3) mg/dL Total Bilirubin 0.60 (0.2-1.3) mg/dL AST 19 (17-59) U/L ALT 9 (0-50) U/L Alkaline Phosphatase 47 (38-126) U/L Serum Total Protein 4.4 L (6.3-8.2) g/dL Albumin 2.0 L (3.5-5.0) g/dL Micro Results-Entire Visit: Microbiology 01/20/19 18:10 Blood Culture Gram Stain - Final Blood Not Reportable Blood Culture - Final NO GROWTH 01/20/19 17:48 Blood Culture Gram Stain - Final Blood No growth. Blood Culture - Final No growth. Accuchecks Accucheck Value: 121 Accucheck Value: 148 Accucheck Value: 144 - Procedures and Test Procedures and Tests throughout Hospitalization: Therapy Orders & Screens 01/20/19 22:54 Oxygen Nasal Cannula 3 lpm Comment: Diagnosis: pna, diverticulitis 01/24/19 20:21 Respiratory Therapy Assessment DAILY Comment: Diagnosis: pna, diverticulitis Discharge Exam General Appearance: no apparent distress, alert Neurologic Exam: oriented x 3, cooperative, other (sitting up in chair) Eye Exam: eyes nml inspection Ears, Nose, Throat Exam: moist mucous membranes Neck Exam: normal inspection Respiratory Exam: diminished breath sounds, wheezing (faint scattered), No crackles/rales, No rhonchi Cardiovascular Exam: regular rate/rhythm, normal heart sounds, No murmur Gastrointestinal/Abdomen Exam: soft, normal bowel sounds, No tenderness, No distention, No mass, No guarding, No rebound Back Exam: normal inspection, No rash Extremity Exam: swelling (hands>feet) Skin Exam: normal color, warm, dry, No rash Final Diagnosis/Problem List - Final Discharge Diagnosis/Problem (1) Pneumonia Current Visit: Yes Status: Acute Assessment & Plan: on IV levaquin and flagyl. Code(s): J18.9 - PNEUMONIA, UNSPECIFIED ORGANISM (2) Diverticulitis Current Visit: Yes Status: Acute Assessment & Plan: Will finish 10-14d of antibiotics, depending on clinical condition. Code(s): K57.92 - DVTRCLI OF INTEST, PART UNSP, W/O PERF OR ABSCESS W/O BLEED (3) Gastric cancer Current Visit: Yes Status: Chronic (4) Ureterolithiasis Current Visit: Yes Status: Acute (5) Pancytopenia Current Visit: Yes Status: Chronic Assessment & Plan: platelets have improved, up to 121 Code(s): D61.818 - OTHER PANCYTOPENIA (6) DNR (do not resuscitate) Current Visit: Yes Status: Chronic (7) Nutrition disorder Current Visit: Yes Status: Acute Code(s): E63.9 - NUTRITIONAL DEFICIENCY, UNSPECIFIED (8) Muscular deconditioning Current Visit: Yes Status: Acute Assessment & Plan: Swing bed today. Code(s): R29.898 - OTH SYMPTOMS AND SIGNS INVOLVING THE MUSCULOSKELETAL SYSTEM - Discharge Disposition: Swing Bed @ COUNT INCLUDES THE [facility] Condition: Stable Prescriptions: No Action Clopidogrel Bisulfate 75 mg [PLAVIX 75 MG Tablet] 75 mg PO DAILY Bimatoprost 0.01% [Lumigan 0.01% 2.5 ml] 1 drop OP HS raNITIdine HCl [Zantac] 150 mg PO QHS Multivit-Min/FA/Lycopen/Lutein [Centrum Silver Tablet] 1 each PO DAILY Tamsulosin HCl 0.4 mg [Flomax 0.4 MG] 0.4 mg PO DAILY Fluticasone/Vilanterol [Breo Ellipta 100-25 Mcg INH] 1 ea PO DAILY Pantoprazole 20 mg [Protonix 20MG Tablet] 40 mg PO DAILY Finasteride 5 mg PO DAILY Brimonidine Tartrate [Alphagan P] 1 drop OP DAILY Ondansetron ODT 4 MG [Zofran Odt 4 mg] 4 mg PO Q6H PRN PRN PRN Reason: n/v Hydrocodone/APAP 5/325 [[place] 5/325 mg] 1 each PO Q4H PRN PRN PRN Reason: Pain Lisinopril 5 mg [Zestril 5 MG] 5 mg PO DAILY Prochlorperazine Maleate 10 mg [Compazine 10 mg] 10 mg PO Q4HPRN PRN PRN Reason: n/v Loperamide HCl 2 mg [Imodium 2 mg] 2 mg PO UD PRN PRN Reason: Diarrhea Lorazepam 0.5 mg [Ativan 0.5 MG] 0.5 mg PO Q4H PRN PRN PRN Reason: Anxiety Follow up with: DOCTOR,NO FAMILY [Primary Care Provider] - 1 Week
[2019-01-26] MEDS: Levofloxacin 500MG/100ML D5W 500 MG/100 ML BAG IV SCH (10:23)
[2019-01-26] MEDS: Alphagan P 0.15% OP SCH (10:24)
[2019-01-26] MEDS: Proscar 5 MG PO SCH (10:25)
[2019-01-26] MEDS: Megace 40 MG/ML PO SCH (10:25)
[2019-01-26] MEDS: Flomax 0.4 MG PO SCH (10:25)
[2019-01-26] MEDS: Zestril 5 MG PO SCH (10:25)
[2019-01-26] MEDS: PLAVIX 75 MG Tablet PO SCH (10:25)
[2019-01-26] MEDS: Pepcid 20 MG PO SCH (10:25)
[2019-01-26 13:52] VITALS: BP 89/42; PULSE 68; O2SAT 95
== END 2019-01-26 13:30 | disposition swing bed (61) | DRG 194 ==
LOC: ED 17:34 → ICU 20:35 → MED SURG 01-24 12:00
PROVIDERS: ADMIT Family Medicine; ATTEND Family Medicine
DX: J18.9 Pneumonia, unspecified organism (principal); K57.92 Diverticulitis of intestine, part unspecified, without perforation or abscess without bleeding; C16.9 Malignant neoplasm of stomach, unspecified; N20.1 Calculus of ureter; D61.818 Other pancytopenia; I10 Essential (primary) hypertension; J44.9 Chronic obstructive pulmonary disease, unspecified; R11.2 Nausea with vomiting, unspecified; R10.9 Unspecified abdominal pain; R29.898 Other symptoms and signs involving the musculoskeletal system; E63.9 Nutritional deficiency, unspecified; R53.1 Weakness; Z79.01 Long term (current) use of anticoagulants; Z79.899 Other long term (current) drug therapy; Z95.0 Presence of cardiac pacemaker
CPT/HCPCS: 36000; 36415; 71045; 74176; 80048; 80053; 81001; 82040; 82150; 82962; 83036; 83605; 83690; 83735; 84155; 84484; 85025; 85027; 87040; 93005; 94640; 94760; 96360; 96365; 96367; 96374; 96375; 99285; 99291; J1265; J1956; J2270; J2405; J2550; A9270-GY

== ENCOUNTER 2019-01-26 09:50 | Inpatient (IN) | payer MEDICARE, OTHER ==
[2019-01-26 12:25] LABS: ANION GAP 7.6 MEQ/L (5-15); BLOOD UREA NITROGEN 18 mg/dL (9-20); CHLORIDE 107 mmol/L (98-107); Calcium 7.7 mg/dL (8.4-10.2); Carbon Dioxide 22 mmol/L (22-30); Creatinine 1 0.69 mg/dL (0.66-1.25); Glucose 121 mg/dL (74-106); Potassium 3.7 mmol/L (3.5-5.1); SODIUM 132 mmol/L (137-145)
[2019-01-26] MEDS ORDERED: IMODIUM 2 MG PO PRN (12:52)
[2019-01-26] MEDS ORDERED: FEVERALL 650 MG PR PRN (12:52)
[2019-01-26] MEDS ORDERED: Artificial Tears 15 ML OP PRN (12:52)
[2019-01-26] MEDS: Sodium Chloride 0.9% 10 ML FLUSH Syringe IV SCH ×2 (15:17→22:10)
[2019-01-26] MEDS: Advair Hfa 115/21 Common canister IH SCH (19:53)
[2019-01-26] MEDS: Alphagan P 0.15% OP SCH (22:10)
[2019-01-26] MEDS: LUMIGAN 0.01% 2.5 ML OP SCH (22:10)
[2019-01-26] MEDS: Protonix 40MG Tablet PO SCH (22:10)
[2019-01-27] MEDS: INTRALIPID 20% IV SCH ×7 (00:24)
[2019-01-27] MEDS: TPN ELECTROLYTES IV SCH ×7 (00:24)
[2019-01-27] MEDS: [UNRECOGNIZED DRUG - OTHER] IV SCH ×7 (00:24)
[2019-01-27] MEDS: Sodium Chloride 0.9% 10 ML FLUSH Syringe IV SCH ×3 (06:37→21:19)
[2019-01-27] MEDS: TYLENOL 325 MG PO PRN ×2 (06:41→18:48)
[2019-01-27] MEDS: Advair Hfa 115/21 Common canister IH SCH ×2 (06:57→19:56)
[2019-01-27] MEDS: Megace 40 MG/ML PO SCH (09:33)
[2019-01-27] MEDS: Levofloxacin 500MG/100ML D5W 500 MG/100 ML BAG IV SCH (09:33)
[2019-01-27] MEDS: Alphagan P 0.15% OP SCH ×2 (09:34→21:19)
[2019-01-27] MEDS: Pepcid 20 MG PO SCH (09:34)
[2019-01-27] MEDS: Flomax 0.4 MG PO SCH (09:35)
[2019-01-27] MEDS: PLAVIX 75 MG Tablet PO SCH (09:35)
[2019-01-27] MEDS: Zestril 5 MG PO SCH (09:35)
[2019-01-27] MEDS: Proscar 5 MG PO SCH (09:35)
[2019-01-27] MEDS ORDERED: Aplisol ID ONE (10:00)
[2019-01-27] MEDS: LUMIGAN 0.01% 2.5 ML OP SCH (21:19)
[2019-01-27] MEDS: Protonix 40MG Tablet PO SCH (21:19)
[2019-01-27] MEDS ORDERED: Klonopin 0.5 MG PO ONE (22:30)
[2019-01-28] MEDS: [UNRECOGNIZED DRUG - OTHER] IV SCH ×7 (01:53)
[2019-01-28] MEDS: INTRALIPID 20% IV SCH ×14 (01:53→15:38)
[2019-01-28] MEDS: TPN ELECTROLYTES IV SCH ×14 (01:53→15:38)
[2019-01-28] MEDS: Advair Hfa 115/21 Common canister IH SCH ×2 (09:30→19:32)
[2019-01-28] MEDS: PLAVIX 75 MG Tablet PO SCH (10:49)
[2019-01-28] MEDS: Levofloxacin 500MG/100ML D5W 500 MG/100 ML BAG IV SCH (10:49)
[2019-01-28] MEDS: Flomax 0.4 MG PO SCH (10:50)
[2019-01-28] MEDS: Zestril 5 MG PO SCH (10:50)
[2019-01-28] MEDS: Pepcid 20 MG PO SCH (10:50)
[2019-01-28] MEDS: Megace 40 MG/ML PO SCH (10:51)
[2019-01-28] MEDS: Alphagan P 0.15% OP SCH ×2 (10:53→21:27)
[2019-01-28] MEDS: Proscar 5 MG PO SCH (10:54)
[2019-01-28] MEDS: [UNRECOGNIZED DRUG - OTHER] IV SCH ×7 (15:38)
[2019-01-28] MEDS: Sodium Chloride 0.9% 10 ML FLUSH Syringe IV SCH (21:27)
[2019-01-28] MEDS: LUMIGAN 0.01% 2.5 ML OP SCH (21:29)
[2019-01-28] MEDS: Protonix 40MG Tablet PO SCH (21:30)
[2019-01-28] MEDS: CHLORASEPTIC SPRAY 180 ML PO PRN (23:38)
[2019-01-29] MEDS: CHLORASEPTIC SPRAY 180 ML PO PRN (04:02)
[2019-01-29] MEDS: Sodium Chloride 0.9% 10 ML FLUSH Syringe IV SCH ×2 (04:54→09:47)
[2019-01-29 06:26] LABS: Hematocrit 24.4 % (42-50); Hemoglobin 8.3 gm/dl (12.5-18.0); Mean Cell Volume 91.4 fl (78-100); Mean Platelet Volume 9.9 fl (6-9.5); Platelet Count 214 K/mm3 (150-450); Red Blood Count 2.67 M/mm3 (4.1-5.6); Red Cell Distribution Width 16.7 % (11.5-14.0)
[2019-01-29 06:38] LABS: ALBUMIN 2.3 g/dL (3.5-5.0); ANION GAP 7.4 MEQ/L (5-15); BLOOD UREA NITROGEN 18 mg/dL (9-20); CHLORIDE 107 mmol/L (98-107); Calcium 7.8 mg/dL (8.4-10.2); Carbon Dioxide 21 mmol/L (22-30); Creatinine 1 0.82 mg/dL (0.66-1.25); Glucose 104 mg/dL (74-106); MAGNESIUM 2.2 mg/dL (1.6-2.3); Potassium 4.4 mmol/L (3.5-5.1); SODIUM 131 mmol/L (137-145)
[2019-01-29 07:45] LABS: Eosinophil 2 % (0.00-3.0); Lymphocytes 9 % (24-44); Monocyte 1 % (0.0-12.0); Neutrophils 88 % (36.-66.); Total Cells Counted 100
[2019-01-29 07:46] LABS: ANISOCYTOSIS 1+; Platelet Estimate NORMAL (NORMAL); Poikilocytosis 1+
[2019-01-29] MEDS: Advair Hfa 115/21 Common canister IH SCH ×2 (09:41→19:05)
[2019-01-29] MEDS: Flomax 0.4 MG PO SCH (09:42)
[2019-01-29] MEDS: Alphagan P 0.15% OP SCH (09:42)
[2019-01-29] MEDS: Levofloxacin 500MG/100ML D5W 500 MG/100 ML BAG IV SCH (09:42)
[2019-01-29] MEDS: Megace 40 MG/ML PO SCH (09:43)
[2019-01-29] MEDS: Pepcid 20 MG PO SCH (09:45)
[2019-01-29] MEDS: Zestril 5 MG PO SCH (09:45)
[2019-01-29] MEDS: Proscar 5 MG PO SCH (09:46)
[2019-01-29] MEDS: PLAVIX 75 MG Tablet PO SCH (09:46)
--- NOTE | 2019-01-29 11:44 | PCM.NOTE ---
Date and Time: 01/29/19 1143 Subjective Assessment: doing better - Review of Systems Constitutional: No Fever, No Chills Eyes: No Symptoms Ears, Nose, & Throat: No Symptoms Respiratory: No Cough, No Short Of Breath Cardiac: No Chest Pain, No Edema, No Syncope Abdominal/Gastrointestinal: No Abdominal Pain, No Nausea, No Vomiting, No Diarrhea Genitourinary Symptoms: No Dysuria Musculoskeletal: No Back Pain, No Neck Pain Skin: No Rash Neurological: No Dizziness, No Focal Weakness, No Sensory Changes Psychological: No Symptoms Endocrine: No Symptoms Hematologic/Lymphatic: No Symptoms Immunological/Allergic: No Symptoms Objective Exam General Appearance: no apparent distress, alert Neurologic Exam: alert, oriented x 3, cooperative, normal mood/affect, nml cerebellar function, sensation nml, No motor deficits Skin Exam: normal color, warm, dry Eye Exam: PERRL, EOMI, eyes nml inspection Ears, Nose, Throat Exam: normal ENT inspection, pharynx normal, moist mucous membranes Neck Exam: normal inspection, non-tender, supple, full range of motion Respiratory Exam: normal breath sounds, lungs clear, No respiratory distress Cardiovascular Exam: regular rate/rhythm, normal heart sounds Gastrointestinal/Abdomen Exam: soft, No tenderness, No mass Extremity Exam: normal inspection, normal range of motion Back Exam: normal inspection, normal range of motion, No CVA tenderness, No vertebral tenderness Male Genitalia Exam: deferred Rectal Exam: deferred OBJECTIVE DATA Vital Signs: Vital Signs - 24 hr Temp Pulse Resp BP Pulse Ox 01/29/19 09:41 76 18 95 01/29/19 07:19 98 F 74 20 122/80 98 01/28/19 20:00 98.3 F 74 19 125/61 100 01/28/19 19:00 73 16 98 Pain Assessment - Last Documented Pain Intensity 0 Pain Scale Used 0-10 Pain Scale Intake and Output: Intake & Output 01/26/19 01/27/19 01/28/19 01/29/19 11:59 11:59 11:59 11:59 Intake Total 240 2565 3279 1732 Output Total 825 490 268 2249 Balance -585 6560 3054 -1218 Weight 87.7 kg 87.7 kg Lab Results: Accuchecks Date 01/29/19 Date 01/29/19 Date 01/28/19 Time 06:15 Time 00:00 Time 11:30 Accucheck Value: 114 Accucheck Value: 142 Accucheck Value: 107 Accucheck Value: 127 Lab Results-Last 24 Hours 01/29/19 01/29/19 Range/Units 05:44 05:44 WBC 5.0 (4.0-10.5) K/mm3 RBC 2.67 L (4.1-5.6) M/mm3 Hgb 8.3 L (12.5-18.0) gm/dl Hct 24.4 L (42-50) % MCV 91.4 (78-100) fl MCH 31.0 (26-32) pg MCHC 34.0 (32-36) g/dl RDW 16.7 H (11.5-14.0) % Plt Count 214 (150-450) K/mm3 MPV 9.9 H (6-9.5) fl Segmented Neutrophils 88 H (36.-66.) % Lymphocytes (Manual) 9 L (24-44) % Monocytes (Manual) 1 (0.0-12.0) % Eosinophils (Manual) 2 (0.00-3.0) % Platelet Estimate NORMAL (NORMAL) RBC Morphology ABNORMAL Poikilocytosis 1+ Anisocytosis 1+ Sodium 131 L (137-145) mmol/L Potassium 4.4 (3.5-5.1) mmol/L Chloride 107 (98-107) mmol/L Carbon Dioxide 21 L (22-30) mmol/L Anion Gap 7.4 (5-15) MEQ/L BUN 18 (9-20) mg/dL Creatinine 0.82 (0.66-1.25) mg/dL Estimated GFR > 60.0 ML/MIN Glucose 104 (74-106) mg/dL Calcium 7.8 L (8.4-10.2) mg/dL Magnesium 2.2 (1.6-2.3) mg/dL Serum Total Protein 5.0 L (6.3-8.2) g/dL Albumin 2.3 L (3.5-5.0) g/dL Assessment/Plan (1) Debility, unspecified Current Visit: Yes Status: Acute Assessment & Plan: Last Vital Signs Temp 98 F 01/29/19 07:19 Pulse 76 01/29/19 09:41 Resp 18 01/29/19 09:41 BP 122/80 01/29/19 07:19 Pulse Ox 95 01/29/19 09:41 Allergies No Known Drug Allergies Allergy (Verified 01/26/19 14:09) Active Medications Acetaminophen (Feverall 650 Mg) 650 mg VA Q4H PRN PRN PRN Reason: PAIN AND/OR FEVER Stop: 02/19/19 20:43 Acetaminophen (Tylenol 325 Mg) 650 mg PO Q4H PRN PRN PRN Reason: PAIN AND/OR FEVER Stop: 02/24/19 23:48 Last Admin: 01/27/19 18:48 Dose: 650 mg Artificial Tears (Artificial Tears 15 Ml) 1 ml OP PRN PRN PRN Reason: Dry Eyes Stop: 02/22/19 15:22 Bimatoprost (Lumigan 0.01% 2.5 Ml) 0 ml OP HS VILMA Stop: 02/23/19 21:59 Last Admin: 01/28/19 21:29 Dose: 1 ml Brimonidine Tartrate (Alphagan P 0.15%) 0 ml OP BID VILMA Stop: 02/23/19 21:59 Last Admin: 01/29/19 09:42 Dose: 5 ml Clopidogrel Bisulfate (Plavix 75 Mg Tablet) 75 mg PO DAILY [facility] Stop: 02/23/19 16:14 Last Admin: 01/29/19 09:46 Dose: 75 mg Famotidine (Pepcid 20 Mg) 20 mg PO DAILY [facility] Stop: 02/24/19 09:59 Last Admin: 01/29/19 09:45 Dose: 20 mg Finasteride (Proscar 5 Mg) 5 mg PO DAILY [facility] Stop: 02/24/19 09:59 Last Admin: 01/29/19 09:46 Dose: 5 mg Heparin Sodium (Beef Lung) (Heparin Lock Flush 100 Units/Ml 5ml Syringe) 0 units IV UD PRN Stop: 02/23/19 12:59 Levofloxacin/Dextrose (Levofloxacin 500mg/100ml D5w) 500 mg in 100 mls @ 100 mls/hr IV Q24H10 [facility] Stop: 02/23/19 09:59 Last Admin: 01/29/19 09:42 Dose: 100 mls/hr Fat Emulsion Intravenous 125 ml/ Parenteral Electrolytes 20 ml/ Chromium/Copper/ Manganese /Zinc 1 ml/ Multivitamins/Minerals 10 ml/ Potassium Chloride 40 meq/ Magnesium Sulfate 1 gm/ Amino Acids/Dextrose 1,178 mls @ 50 mls/hr IV .[id number] [facility] Stop: 02/27/19 13:59 Last Admin: 01/28/19 15:38 Dose: 50 mls/hr Lisinopril (Zestril 5 Mg) 5 mg PO DAILY [facility] Stop: 02/24/19 09:59 Last Admin: 01/29/19 09:45 Dose: 5 mg Loperamide HCl (Imodium 2 Mg) 2 mg PO UD PRN PRN Reason: DIARRHEA Stop: 02/23/19 16:06 Megestrol Acetate (Megace 40 Mg/Ml) 400 mg PO DAILY [facility] Stop: 02/24/19 09:59 Last Admin: 01/29/19 09:43 Dose: 400 mg Pantoprazole Sodium (Protonix 40mg Tablet) 40 mg PO Q24H22 [facility] Stop: 02/23/19 21:59 Last Admin: 01/28/19 21:30 Dose: 40 mg Phenol (Chloraseptic [place] 180 Ml) 1 ml PO Q2H/PRN PRN PRN Reason: sore throat Stop: 02/27/19 23:19 Last Admin: 01/29/19 04:02 Dose: 1 ml Prochlorperazine (Compazine 5 Mg) 10 mg PO Q4H PRN PRN PRN Reason: NAUSEA/VOMITING Stop: 02/23/19 16:17 Fluticasone/Salmeterol (Advair Hfa 115/21 Common Canister*) 2 puff IH BIDRT [facility] Stop: 02/23/19 18:59 Last Admin: 01/29/19 09:41 Dose: 2 puff Sodium Chloride (Sodium Chloride 0.9% 10 Ml Flush Syringe) 10 ml IV Q8HT [facility] Stop: 02/21/19 21:59 Last Admin: 01/29/19 09:47 Dose: 10 ml Sodium Chloride (Sodium Chloride 0.9% 10 Ml Flush Syringe) 10 ml IV PRN PRN Stop: 02/23/19 12:59 Tamsulosin HCl (Flomax 0.4 Mg) 0.4 mg PO DAILY [facility] Stop: 02/24/19 09:59 Last Admin: 01/29/19 09:42 Dose: 0.4 mg Intake & Output 01/28/19 01/29/19 11:59 11:59 Intake Total 3279 8652 Output Total 225 5530 Balance 3054 -1218 Lab Tests 01/29/19 01/29/19 05:44 05:44 WBC 5.0 RBC 2.67 L Hgb 8.3 L Hct 24.4 L MCV 91.4 MCH 31.0 MCHC 34.0 RDW 16.7 H Plt Count 214 MPV 9.9 H Segmented Neutrophils 88 H Lymphocytes (Manual) 9 L Monocytes (Manual) 1 Eosinophils (Manual) 2 Platelet Estimate NORMAL RBC Morphology ABNORMAL Poikilocytosis 1+ Anisocytosis 1+ Sodium 131 L Potassium 4.4 Chloride 107 Carbon Dioxide 21 L Anion Gap 7.4 BUN 18 Creatinine 0.82 Estimated GFR > 60.0 Glucose 104 Calcium 7.8 L Magnesium 2.2 Serum Total Protein 5.0 L Albumin 2.3 L Code(s): R53.81 - OTHER MALAISE (2) COPD (chronic obstructive pulmonary disease) Current Visit: Yes Status: Chronic Qualifiers: COPD type: unspecified COPD Qualified Code(s): J44.9 - Chronic obstructive pulmonary disease, unspecified (3) HTN (hypertension) Current Visit: Yes Status: Chronic Qualifiers: Hypertension type: essential hypertension Code(s): I10 - ESSENTIAL (PRIMARY) HYPERTENSION
[2019-01-29] MEDS: LUMIGAN 0.01% 2.5 ML OP SCH (21:46)
[2019-01-29] MEDS: Protonix 40MG Tablet PO SCH (21:46)
[2019-01-29] MEDS: TYLENOL EXTRA STRENGTH 500 MG PO PRN (21:49)
[2019-01-29] MEDS: BENADRYL 25 MG CAPSULE PO PRN (21:49)
[2019-01-29] MEDS: Compazine 5 MG PO PRN (21:52)
[2019-01-30] MEDS: Alphagan P 0.15% OP SCH ×3 (00:07→21:11)
[2019-01-30] MEDS: CHLORASEPTIC SPRAY 180 ML PO PRN (05:11)
[2019-01-30] MEDS: PLAVIX 75 MG Tablet PO SCH (09:05)
[2019-01-30] MEDS: Zestril 5 MG PO SCH (09:05)
[2019-01-30] MEDS: Pepcid 20 MG PO SCH (09:05)
[2019-01-30] MEDS: Megace 40 MG/ML PO SCH (09:05)
[2019-01-30] MEDS: Proscar 5 MG PO SCH (09:06)
[2019-01-30] MEDS: Levofloxacin 500MG/100ML D5W 500 MG/100 ML BAG IV SCH (09:06)
[2019-01-30] MEDS: Flomax 0.4 MG PO SCH (09:06)
[2019-01-30] MEDS: MARY'S MOUTHWASH PO PRN ×3 (09:08→18:57)
[2019-01-30] MEDS: Advair Hfa 115/21 Common canister IH SCH ×2 (09:25→17:41)
[2019-01-30] MEDS: Compazine 5 MG PO PRN ×2 (10:15→15:42)
[2019-01-30] MEDS: INTRALIPID 20% IV SCH ×14 (13:39→13:40)
[2019-01-30] MEDS: TPN ELECTROLYTES IV SCH ×14 (13:39→13:40)
[2019-01-30] MEDS: [UNRECOGNIZED DRUG - OTHER] IV SCH ×14 (13:39→13:40)
[2019-01-30] MEDS: TYLENOL 325 MG PO PRN (15:21)
[2019-01-30 17:34] LABS: Hematocrit 25.5 % (42-50); Hemoglobin 8.6 gm/dl (12.5-18.0); Mean Cell Volume 92.4 fl (78-100); Mean Corpuscular Hgb Concent. 33.7 g/dl (32-36); Mean Platelet Volume 9.1 fl (6-9.5); Platelet Count 285 K/mm3 (150-450); Red Blood Count 2.76 M/mm3 (4.1-5.6); Red Cell Distribution Width 17.6 % (11.5-14.0)
[2019-01-30 17:37] LABS: ALBUMIN 2.6 g/dL (3.5-5.0); ALKALINE PHOSPHATASE 66 U/L (38-126); ANION GAP 9.6 MEQ/L (5-15); BLOOD UREA NITROGEN 21 mg/dL (9-20); CHLORIDE 108 mmol/L (98-107); Calcium 7.9 mg/dL (8.4-10.2); Carbon Dioxide 21 mmol/L (22-30); Creatinine 1 0.92 mg/dL (0.66-1.25); Glucose 131 mg/dL (74-106); Potassium 5.1 mmol/L (3.5-5.1); SGOT/AST 37 U/L (17-59); SGPT/ALT 18 U/L (0-50); SODIUM 133 mmol/L (137-145); Total Protein 5.6 g/dL (6.3-8.2)
[2019-01-30 17:40] LABS: Mean Corpuscular Hemoglobin 31.1 pg (26-32)
[2019-01-30] MEDS: PROVENTIL 2.5 MG/3 ML NEB IH SCH (17:40)
[2019-01-30 18:31] LABS: Lymphocytes 9 % (24-44); Neutrophils 91 % (36.-66.); Platelet Estimate NORMAL (NORMAL); Total Cells Counted 100
[2019-01-30] MEDS: BENADRYL 25 MG CAPSULE PO PRN (21:08)
[2019-01-30] MEDS: Sodium Chloride 0.9% 10 ML FLUSH Syringe IV SCH (21:08)
[2019-01-30] MEDS: Protonix 40MG Tablet PO SCH (21:09)
[2019-01-30] MEDS: TYLENOL EXTRA STRENGTH 500 MG PO PRN (21:09)
[2019-01-30] MEDS: LUMIGAN 0.01% 2.5 ML OP SCH (21:11)
--- NOTE | 2019-01-31 00:04 | PCM.NOTE ---
Date and Time: 01/30/19 1800 Subjective Assessment: nurse phoned to report that patient is having a cough and seems worse this evening.Reports soarse exp sounds. CXR and labs were ordered.Neb albuterol Txs started. OBJECTIVE DATA Vital Signs: Vital Signs - 24 hr Temp Pulse Resp BP Pulse Ox 01/30/19 19:47 97.7 F 79 18 115/55 98 01/30/19 17:44 73 18 95 01/30/19 09:26 71 18 97 01/30/19 06:44 98.1 F 73 18 165/66 94 L Pain Assessment - Last Documented Pain Intensity 0 Pain Scale Used [facility] Intake and Output: Intake & Output 01/28/19 01/29/19 01/30/19 01/31/19 11:59 11:59 11:59 11:59 Intake Total 3279 1732 120 240 Output Total 225 2950 3375 350 Balance 3054 -1218 -3255 -110 Lab Results: Accuchecks Date 01/30/19 Date 01/30/19 Date 01/30/19 Time 17:00 Time 11:30 Time 05:41 Accucheck Value: 110 Accucheck Value: 110 Accucheck Value: 107 Lab Results-Last 24 Hours 01/30/19 01/30/19 01/30/19 Range/Units 17:21 17:21 17:29 WBC 7.0 (4.0-10.5) K/mm3 RBC 2.76 L (4.1-5.6) M/mm3 Hgb 8.6 L (12.5-18.0) gm/dl Hct 25.5 L (42-50) % MCV 92.4 (78-100) fl MCH 31.1 (26-32) pg MCHC 33.7 (32-36) g/dl RDW 17.6 H (11.5-14.0) % Plt Count 285 (150-450) K/mm3 MPV 9.1 (6-9.5) fl Segmented Neutrophils 91 H (36.-66.) % Lymphocytes (Manual) 9 L (24-44) % Platelet Estimate NORMAL (NORMAL) RBC Morphology NORMAL Sodium 133 L (137-145) mmol/L Potassium 5.1 (3.5-5.1) mmol/L Chloride 108 H (98-107) mmol/L Carbon Dioxide 21 L (22-30) mmol/L Anion Gap 9.6 (5-15) MEQ/L BUN 21 H (9-20) mg/dL Creatinine 0.92 (0.66-1.25) mg/dL Estimated GFR > 60.0 ML/MIN Glucose 131 H (74-106) mg/dL Calcium 7.9 L (8.4-10.2) mg/dL Total Bilirubin 0.70 (0.2-1.3) mg/dL AST 37 (17-59) U/L ALT 18 (0-50) U/L Alkaline Phosphatase 66 (38-126) U/L NT-Pro-B Natriuret Pep 314 (0-1800) pg/mL Serum Total Protein 5.6 L (6.3-8.2) g/dL Albumin 2.6 L (3.5-5.0) g/dL Radiology Exams: Radiology Procedures Category Date Time Status CHEST 1 VIEW (PORTABLE) Urgent Exams 01/30/19 16:42 Taken Assessment/Plan (1) Cough Current Visit: Yes Status: Acute Assessment & Plan: work up ordered per nurses observations-tx pending results. Code(s): R05 - COUGH
[2019-01-31] MEDS: TYLENOL 325 MG PO PRN ×2 (02:58→20:38)
[2019-01-31] MEDS: CHLORASEPTIC SPRAY 180 ML PO PRN ×4 (03:00→20:40)
[2019-01-31] MEDS: MARY'S MOUTHWASH PO PRN ×3 (04:29→18:16)
[2019-01-31 06:06] LABS: Hematocrit 24.4 % (42-50); Hemoglobin 8.3 gm/dl (12.5-18.0); Mean Cell Volume 91.7 fl (78-100); Mean Corpuscular Hemoglobin 31.2 pg (26-32); Mean Platelet Volume 9.1 fl (6-9.5); Platelet Count 283 K/mm3 (150-450); Red Blood Count 2.66 M/mm3 (4.1-5.6); Red Cell Distribution Width 17.6 % (11.5-14.0); White Blood Count 4.7 K/mm3 (4.0-10.5)
[2019-01-31 06:17] LABS: ALBUMIN 2.4 g/dL (3.5-5.0); ANION GAP 7.2 MEQ/L (5-15); BLOOD UREA NITROGEN 20 mg/dL (9-20); CHLORIDE 109 mmol/L (98-107); Carbon Dioxide 22 mmol/L (22-30); Creatinine 1 0.85 mg/dL (0.66-1.25); Glucose 117 mg/dL (74-106); MAGNESIUM 2.4 mg/dL (1.6-2.3); Potassium 4.5 mmol/L (3.5-5.1); SODIUM 134 mmol/L (137-145); Total Protein 5.3 g/dL (6.3-8.2)
[2019-01-31] MEDS: PROVENTIL 2.5 MG/3 ML NEB IH SCH ×3 (07:11→19:02)
[2019-01-31] MEDS: Advair Hfa 115/21 Common canister IH SCH ×2 (07:11→19:02)
--- NOTE | 2019-01-31 09:28 | PCM.NOTE ---
Date and Time: 01/31/19922 Subjective Assessment: Pt still having some cough. CXR done overnight showed possible worsening, overall no real change, but final read is pending. He c/o hiccups frequently throughout the day. He is eating some more. Denies pain. - Review of Systems Constitutional: No Fever Respiratory: Cough Objective Exam General Appearance: no apparent distress, alert Neurologic Exam: oriented x 3, cooperative Skin Exam: normal color, warm, dry, No rash Respiratory Exam: lungs clear, diminished breath sounds (good air exchange), No crackles/rales, No rhonchi, No wheezing Gastrointestinal/Abdomen Exam: soft, normal bowel sounds, No tenderness, No distention, No mass, No guarding, No rebound Extremity Exam: normal inspection, swelling (trace pretibial edema bilat) Back Exam: normal inspection, No rash OBJECTIVE DATA Vital Signs: Vital Signs - 24 hr Temp Pulse Resp BP Pulse Ox 01/31/19 07:36 97.6 F 62 24 156/65 97 01/31/19 07:17 63 16 95 01/30/19 19:47 97.7 F 79 18 115/55 98 01/30/19 17:44 73 18 95 01/30/19 09:26 71 18 97 Pain Assessment - Last Documented Pain Intensity 6 Pain Scale Used 0-10 Pain Scale Intake and Output: Intake & Output 01/28/19 01/29/19 01/30/19 01/31/19 11:59 11:59 11:59 11:59 Intake Total 3279 1732 120 240 Output Total 225 2950 3375 350 Balance 3054 -1218 -3255 -110 Lab Results: Accuchecks Date 01/31/19 Date 01/31/19 Date 01/30/19 Date 01/30/19 Time 05:30 Time 00:00 Time 17:00 Time 11:30 Accucheck Value: 125 Accucheck Value: 148 Accucheck Value: 110 Accucheck Value: 110 Lab Results-Last 24 Hours 01/30/19 01/30/19 01/30/19 Range/Units 17:21 17:21 17:29 WBC 7.0 (4.0-10.5) K/mm3 RBC 2.76 L (4.1-5.6) M/mm3 Hgb 8.6 L (12.5-18.0) gm/dl Hct 25.5 L (42-50) % MCV 92.4 (78-100) fl MCH 31.1 (26-32) pg MCHC 33.7 (32-36) g/dl RDW 17.6 H (11.5-14.0) % Plt Count 285 (150-450) K/mm3 MPV 9.1 (6-9.5) fl Segmented Neutrophils 91 H (36.-66.) % Lymphocytes (Manual) 9 L (24-44) % Platelet Estimate NORMAL (NORMAL) RBC Morphology NORMAL Sodium 133 L (137-145) mmol/L Potassium 5.1 (3.5-5.1) mmol/L Chloride 108 H (98-107) mmol/L Carbon Dioxide 21 L (22-30) mmol/L Anion Gap 9.6 (5-15) MEQ/L BUN 21 H (9-20) mg/dL Creatinine 0.92 (0.66-1.25) mg/dL Estimated GFR > 60.0 ML/MIN Glucose 131 H (74-106) mg/dL Calcium 7.9 L (8.4-10.2) mg/dL Magnesium (1.6-2.3) mg/dL Total Bilirubin 0.70 (0.2-1.3) mg/dL AST 37 (17-59) U/L ALT 18 (0-50) U/L Alkaline Phosphatase 66 (38-126) U/L NT-Pro-B Natriuret Pep 314 (0-1800) pg/mL Serum Total Protein 5.6 L (6.3-8.2) g/dL Albumin 2.6 L (3.5-5.0) g/dL 01/31/19 01/31/19 Range/Units 05:15 05:15 WBC 4.7 (4.0-10.5) K/mm3 RBC 2.66 L (4.1-5.6) M/mm3 Hgb 8.3 L (12.5-18.0) gm/dl Hct 24.4 L (42-50) % MCV 91.7 (78-100) fl MCH 31.2 (26-32) pg MCHC 34.0 (32-36) g/dl RDW 17.6 H (11.5-14.0) % Plt Count 283 (150-450) K/mm3 MPV 9.1 (6-9.5) fl Segmented Neutrophils (36.-66.) % Lymphocytes (Manual) (24-44) % Platelet Estimate (NORMAL) RBC Morphology Sodium 134 L (137-145) mmol/L Potassium 4.5 (3.5-5.1) mmol/L Chloride 109 H (98-107) mmol/L Carbon Dioxide 22 (22-30) mmol/L Anion Gap 7.2 (5-15) MEQ/L BUN 20 (9-20) mg/dL Creatinine 0.85 (0.66-1.25) mg/dL Estimated GFR > 60.0 ML/MIN Glucose 117 H (74-106) mg/dL Calcium 8.0 L (8.4-10.2) mg/dL Magnesium 2.4 H (1.6-2.3) mg/dL Total Bilirubin (0.2-1.3) mg/dL AST (17-59) U/L ALT (0-50) U/L Alkaline Phosphatase (38-126) U/L NT-Pro-B Natriuret Pep (0-1800) pg/mL Serum Total Protein 5.3 L (6.3-8.2) g/dL Albumin 2.4 L (3.5-5.0) g/dL Radiology Exams: Radiology Procedures Category Date Time Status CHEST 1 VIEW (PORTABLE) Urgent Exams 01/30/19 16:42 Taken Assessment/Plan (1) Pneumonia Current Visit: No Status: Acute Qualifiers: Pneumonia type: due to unspecified organism Laterality: left Lung location: lower lobe of lung Qualified Code(s): J18.1 - Lobar pneumonia, unspecified organism Assessment & Plan: On IV levaquin day #8, day #10 antibiotics overall. Would finish 14d antibiotics. Code(s): J18.9 - PNEUMONIA, UNSPECIFIED ORGANISM (2) Gastric cancer Current Visit: No Status: Chronic Qualifiers: Malignant neoplasm of stomach location: unspecified location Qualified Code (s): C16.9 - Malignant neoplasm of stomach, unspecified (3) Nutrition disorder Current Visit: No Status: Acute Assessment & Plan: Has been eating about 25% of his calories per staff; stop the TPN and watch calories and daily weights. Code(s): E63.9 - NUTRITIONAL DEFICIENCY, UNSPECIFIED (4) Anemia Current Visit: Yes Status: Acute Qualifiers: Anemia type: iron deficiency Iron deficiency anemia type: chronic blood loss Qualified Code(s): D50.0 - Iron deficiency anemia secondary to blood loss (chronic) Assessment & Plan: hgb stable at 8.3 Code(s): D64.9 - ANEMIA, UNSPECIFIED (5) HTN (hypertension) Current Visit: Yes Status: Chronic Qualifiers: Hypertension type: essential hypertension Code(s): I10 - ESSENTIAL (PRIMARY) HYPERTENSION (6) Diverticulitis Current Visit: No Status: Resolved Code(s): K57.92 - DVTRCLI OF INTEST, PART UNSP, W/O PERF OR ABSCESS W/O BLEED (7) Physical deconditioning Current Visit: Yes Status: Acute Assessment & Plan: in swing bed. plan would be to transition to [place] at some point. Code(s): R53.81 - OTHER MALAISE
--- NOTE | 2019-01-31 09:45 | XRAY ---
Exam: AP upright portable chest film from 01/30/2019. Comparison: AP portable chest film from 01/20/2019. Indication: 88-year-old male with cough and crackles in both lung bases. Findings: The transverse heart size is slightly enlarged with some left ventricle prominence representing no change from 01/20/2019. Moderate tortuosity of the descending thoracic aorta is seen. A left-sided cardiac pacemaker with dual transvenous leads is again seen in place, one lead tip in the projection of the right atrium and the other lead tip in the projection of the apex of the right ventricle. Right-sided portacatheter is noted with the tip pointing inferiorly near the junction of the SVC and right atrium. I cannot exclude this tip may be in the upper aspect of the right atrium. The level of inspiration is not quite as deep as that seen on 01/20/2019. I see no central pulmonary vascular congestion or pneumothorax. There are mild increased markings at the right lung base which partially obscure the mid/medial aspect of the right hemidiaphragm. In addition, there is small focal hazy opacity at the lateral left lung base which partially obscures the lateral portion left hemidiaphragm and lateral costophrenic angle. These findings are slightly more pronounced as compared to 01/20/2019. The upper and midlung zones remain clear bilaterally. Degenerative changes are seen within both shoulder girdles. There is slight convexity of the lower midthoracic spine toward the right. Impression: 1. There appear to be some increased markings at the right lung base which I believe are slightly greater as compared to 01/20/2019. It is difficult to tell whether this represents subsegmental atelectasis superimposed upon chronic change, or a small infiltrate. The mid to medial aspect of the right hemidiaphragm appears obscured. Correlate clinically. 2. In addition, compared to the prior portable chest film from 01/20/2019, there appears to be mildly increased airspace opacity at the lateral left lung base which partially obscures the left costophrenic angle. This could be due to a small amount of atelectasis, infiltrate, pleural fluid, or some combination thereof. 3. No other acute cardiopulmonary disease is seen. 4. Left-sided cardiac pacemaker and right-sided portacatheter are again seen in place, as discussed above.
[2019-01-31] MEDS: Levofloxacin 500MG/100ML D5W 500 MG/100 ML BAG IV SCH (10:06)
[2019-01-31] MEDS: Alphagan P 0.15% OP SCH ×2 (10:08→20:37)
[2019-01-31] MEDS: Flomax 0.4 MG PO SCH (10:08)
[2019-01-31] MEDS: Megace 40 MG/ML PO SCH (10:09)
[2019-01-31] MEDS: Maxzide-25MG Tablet PO SCH (10:09)
[2019-01-31] MEDS: Pepcid 20 MG PO SCH (10:11)
[2019-01-31] MEDS: PLAVIX 75 MG Tablet PO SCH (10:12)
[2019-01-31] MEDS: Zestril 5 MG PO SCH (10:12)
[2019-01-31] MEDS: Proscar 5 MG PO SCH (10:12)
[2019-01-31] MEDS: NEURONTIN 300 MG PO SCH ×2 (10:25→20:39)
[2019-01-31] MEDS: Sodium Chloride 0.9% 10 ML FLUSH Syringe IV SCH ×5 (13:57→22:26)
[2019-01-31] MEDS: Compazine 5 MG PO PRN (15:02)
[2019-01-31] MEDS: LUMIGAN 0.01% 2.5 ML OP SCH (20:38)
[2019-01-31] MEDS: Protonix 40MG Tablet PO SCH (20:39)
[2019-01-31] MEDS: BENADRYL 25 MG CAPSULE PO PRN (20:39)
[2019-02-01] MEDS: TYLENOL 325 MG PO PRN ×3 (01:06→21:06)
[2019-02-01] MEDS: MARY'S MOUTHWASH PO PRN ×2 (01:08→21:14)
[2019-02-01] MEDS: CHLORASEPTIC SPRAY 180 ML PO PRN ×4 (05:13→23:07)
[2019-02-01] MEDS: Sodium Chloride 0.9% 10 ML FLUSH Syringe IV SCH ×3 (05:35→22:07)
[2019-02-01 08:51] LABS: Hematocrit 27.7 % (42-50); Hemoglobin 9.5 gm/dl (12.5-18.0); Mean Cell Volume 91.4 fl (78-100); Mean Corpuscular Hgb Concent. 34.3 g/dl (32-36); Mean Platelet Volume 8.4 fl (6-9.5); Platelet Count 377 K/mm3 (150-450); Red Blood Count 3.03 M/mm3 (4.1-5.6); Red Cell Distribution Width 18.3 % (11.5-14.0); White Blood Count 5.2 K/mm3 (4.0-10.5)
[2019-02-01] MEDS: PROVENTIL 2.5 MG/3 ML NEB IH SCH ×3 (08:53→20:44)
[2019-02-01 08:56] LABS: Mean Corpuscular Hemoglobin 31.3 pg (26-32)
[2019-02-01] MEDS: Pepcid 20 MG PO SCH (09:17)
[2019-02-01] MEDS: Zestril 5 MG PO SCH (09:17)
[2019-02-01] MEDS: NEURONTIN 300 MG PO SCH ×2 (09:17→21:06)
[2019-02-01] MEDS: Maxzide-25MG Tablet PO SCH (09:17)
[2019-02-01] MEDS: Alphagan P 0.15% OP SCH ×2 (09:17→21:05)
[2019-02-01] MEDS: Flomax 0.4 MG PO SCH (09:17)
[2019-02-01] MEDS: PLAVIX 75 MG Tablet PO SCH (09:17)
[2019-02-01] MEDS: Proscar 5 MG PO SCH (09:17)
[2019-02-01] MEDS: Megace 40 MG/ML PO SCH (09:18)
[2019-02-01] MEDS: Levofloxacin 500MG/100ML D5W 500 MG/100 ML BAG IV SCH (09:23)
[2019-02-01 12:24] LABS: BASOPHIL % 0.2 % (0.0-0.4); Basophil (Absolute #) 0.01 (0-0.4); Eosinophil % 1.2 % (0.00-5.0); Eosinophil (Absolute #) 0.06 (0-0.5); Granulocyte Absolute (ANC) 3.88 (1.4-6.9); Granulocytes % 79.4 % (36.0-66.0); Hematocrit 26.9 % (42-50); Hemoglobin 9.1 gm/dl (12.5-18.0); Lymphocyte (Absolute #) 0.52 (1.0-4.6); Lymphocytes % 10.6 % (24.0-44.0); Mean Cell Volume 92.4 fl (78-100); Mean Corpuscular Hemoglobin 31.2 pg (26-32); Mean Corpuscular Hgb Concent. 33.8 g/dl (32-36); Mean Platelet Volume 8.7 fl (6-9.5); Monocyte (Absolute #) 0.42 (0.0-1.3); Monocytes % 8.6 % (0.0-12.0); Platelet Count 373 K/mm3 (150-450); Red Blood Count 2.91 M/mm3 (4.1-5.6); Red Cell Distribution Width 18.4 % (11.5-14.0); White Blood Count 4.9 K/mm3 (4.0-10.5)
[2019-02-01 12:28] LABS: ALBUMIN 2.9 g/dL (3.5-5.0); ALKALINE PHOSPHATASE 72 U/L (38-126); ANION GAP 11.5 MEQ/L (5-15); BLOOD UREA NITROGEN 23 mg/dL (9-20); CHLORIDE 107 mmol/L (98-107); Calcium 8.5 mg/dL (8.4-10.2); Carbon Dioxide 21 mmol/L (22-30); Creatinine 1 1.14 mg/dL (0.66-1.25); Glucose 94 mg/dL (74-106); Potassium 4.5 mmol/L (3.5-5.1); SGOT/AST 39 U/L (17-59); SGPT/ALT 25 U/L (0-50); SODIUM 135 mmol/L (137-145)
[2019-02-01 13:15] LABS: Slide Review 1 YES
--- NOTE | 2019-02-01 15:11 | XRAY ---
Exam: AP portable chest film from 02/01/2019. Comparison: AP portable chest film from 01/30/2019. Indication: 88-year-old male with low oxygen saturation. Findings: The patient is rotated toward the right. Respiratory tubing overlies the right upper lung field. A right-sided portacatheter is again seen with the tip pointing inferiorly near the caval-atrial junction. Left-sided cardiac pacemaker is again seen with 2 transvenous leads in unchanged position. The heart size is slightly enlarged with mild left ventricular prominence representing no change. A prominent epicardial fat pad is seen at the right cardiophrenic angle. The remainder of the right lung appears clear. However, there appears to be a small patchy airspace infiltrate at the lateral left lung base which partially obscures the left hemidiaphragm. This is better seen on today's study as compared to 01/30/2019. This may represent pneumonia. The remainder of the left lung appears clear. The pulmonary vascularity appears within normal limits. No pneumothorax or definite pleural fluid is seen. Some degenerative changes are seen within the thoracic spine. Impression: 1. Focal patchy airspace infiltrate is better seen at the lateral left lung base on the current study. This is suggestive of pneumonia. 2. The remainder of the lung garcia appears clear. 3. Slight cardiomegaly with left ventricular prominence, no change. Left-sided pacemaker and right-sided portacatheter are again seen in unchanged position.
[2019-02-01] MEDS: Sodium Chloride 0.9% 1000 ML 1,000 ML IV SCH (15:46)
[2019-02-01] MEDS: MERREM 500MG 500 MG in Sodium Chloride 100ML MINI-BAG PLUS 100 ML IV SCH (17:08)
[2019-02-01] MEDS: Advair Hfa 115/21 Common canister IH SCH (20:45)
[2019-02-01] MEDS: Protonix 40MG Tablet PO SCH (21:06)
[2019-02-01] MEDS: LUMIGAN 0.01% 2.5 ML OP SCH (21:06)
[2019-02-01] MEDS: BENADRYL 25 MG CAPSULE PO PRN (21:09)
[2019-02-02] MEDS ORDERED: Sodium Chloride 0.9% 250 ML 250 ML IV SCH (00:30)
[2019-02-02] MEDS: MERREM 500MG 500 MG in Sodium Chloride 100ML MINI-BAG PLUS 100 ML IV SCH ×3 (03:33→18:45)
[2019-02-02] MEDS: TYLENOL 325 MG PO PRN (03:34)
[2019-02-02] MEDS: CHLORASEPTIC SPRAY 180 ML PO PRN ×3 (03:34→23:11)
[2019-02-02 06:10] LABS: Hematocrit 24.5 % (42-50); Hemoglobin 8.3 gm/dl (12.5-18.0); Mean Cell Volume 92.5 fl (78-100); Mean Corpuscular Hemoglobin 31.3 pg (26-32); Mean Corpuscular Hgb Concent. 33.9 g/dl (32-36); Mean Platelet Volume 8.9 fl (6-9.5); Platelet Count 377 K/mm3 (150-450); Red Blood Count 2.65 M/mm3 (4.1-5.6); Red Cell Distribution Width 18.6 % (11.5-14.0); White Blood Count 4.7 K/mm3 (4.0-10.5)
[2019-02-02 06:27] LABS: ALBUMIN 2.4 g/dL (3.5-5.0); ALKALINE PHOSPHATASE 64 U/L (38-126); ANION GAP 9.7 MEQ/L (5-15); BLOOD UREA NITROGEN 25 mg/dL (9-20); CHLORIDE 108 mmol/L (98-107); Carbon Dioxide 22 mmol/L (22-30); Creatinine 1 1.09 mg/dL (0.66-1.25); Glucose 99 mg/dL (74-106); MAGNESIUM 2.1 mg/dL (1.6-2.3); Potassium 4.5 mmol/L (3.5-5.1); SGOT/AST 33 U/L (17-59); SGPT/ALT 23 U/L (0-50); SODIUM 135 mmol/L (137-145); Total Protein 5.3 g/dL (6.3-8.2)
[2019-02-02] MEDS: Sodium Chloride 0.9% 10 ML FLUSH Syringe IV SCH (06:52)
[2019-02-02] MEDS: Advair Hfa 115/21 Common canister IH SCH ×2 (06:56→20:26)
[2019-02-02] MEDS ORDERED: PROVENTIL 2.5 MG/3 ML NEB IH PRN (07:15)
--- NOTE | 2019-02-02 08:33 | PCM.NOTE ---
Date and Time: 02/02/19826 Subjective Assessment: I was called yesterday for an episode in which pt stared off into space, would not respond, became hypoxemic (O2 sat into the 80s). Pt was walking. CXR with more distinct LLL infiltrate - changed abx from levaquin to meropenem. Troponin neg. CBC and BMP non acute. Pt had several episodes yesterday - per family he had occasional episodes like this at home but not as frequent as in hospital. Always happens when he is up walking - will not respond, and here in hospital he "crumbles" (loses some tone) . Not related to eating. RN did orthostats yesterday which were positive. HR to 130 with standing. Also, overnight he had BP to 80/40 (was sleeping and asx at that time) and 94/52, both supine. He was given 250cc NS IV x 2. This morning supine bp 128/59. I did hold his lisinopril and maxzide. This morning pt feels good, denies any pain, is starting to eat his breakfast. - Review of Systems Constitutional: No Fever Abdominal/Gastrointestinal: No Abdominal Pain Objective Exam General Appearance: no apparent distress, alert Neurologic Exam: oriented x 3, cooperative Skin Exam: normal color, warm, dry, No rash Ears, Nose, Throat Exam: moist mucous membranes Neck Exam: normal inspection Respiratory Exam: lungs clear, diminished breath sounds, No crackles/rales, No rhonchi, No wheezing Cardiovascular Exam: regular rate/rhythm, normal heart sounds, No murmur Gastrointestinal/Abdomen Exam: soft, normal bowel sounds, No tenderness, No distention, No mass, No guarding, No rebound Extremity Exam: normal inspection, No pedal edema, No swelling OBJECTIVE DATA Vital Signs: Vital Signs - 24 hr Temp Pulse Resp BP Pulse Ox 02/02/19 07:18 98.1 F 69 18 128/66 96 02/02/19 07:03 64 18 96 02/02/19 04:32 124/59 02/02/19 01:00 106/57 02/02/19 00:00 71 80/40 94 L 02/01/19 22:18 75 18 95 02/01/19 18:57 97.8 F 85 20 94/52 98 02/01/19 12:37 80 20 94 L 02/01/19 09:03 97 Oxygen-Last 24 hours O2 Percentage 3 Liters = 32% O2 Percentage 3 Liters = 32% Pain Assessment - Last Documented Pain Intensity 5 Pain Scale Used [facility] Intake and Output: Intake & Output 01/30/19 01/31/19 02/01/19 02/02/19 11:59 11:59 11:59 11:59 Intake Total 120 937 268 6364 Output Total 3375 492 9712 500 Balance -3475 -110 -6453 573 Weight 79.6 kg 79.9 kg Lab Results: Lab Results-Last 24 Hours 02/01/19 02/01/19 02/01/19 Range/Units 08:40 12:13 12:13 WBC 5.2 4.9 (4.0-10.5) K/mm3 RBC 3.03 L 2.91 L (4.1-5.6) M/mm3 Hgb 9.5 L 9.1 L (12.5-18.0) gm/dl Hct 27.7 L 26.9 L (42-50) % MCV 91.4 92.4 (78-100) fl MCH 31.3 31.2 (26-32) pg MCHC 34.3 33.8 (32-36) g/dl RDW 18.3 H 18.4 H (11.5-14.0) % Plt Count 377 373 (150-450) K/mm3 MPV 8.4 8.7 (6-9.5) fl Gran % 79.4 H (36.0-66.0) % Eos # (Auto) 0.06 (0-0.5) Absolute Lymphs (auto) 0.52 L (1.0-4.6) Absolute Monos (auto) 0.42 (0.0-1.3) Lymphocytes % 10.6 L (24.0-44.0) % Monocytes % 8.6 (0.0-12.0) % Eosinophils % 1.2 (0.00-5.0) % Basophils % 0.2 (0.0-0.4) % Absolute Granulocytes 3.88 (1.4-6.9) Basophils # 0.01 (0-0.4) Sodium 135 L (137-145) mmol/L Potassium 4.5 (3.5-5.1) mmol/L Chloride 107 (98-107) mmol/L Carbon Dioxide 21 L (22-30) mmol/L Anion Gap 11.5 (5-15) MEQ/L BUN 23 H (9-20) mg/dL Creatinine 1.14 (0.66-1.25) mg/dL Estimated GFR > 60.0 ML/MIN Glucose 94 (74-106) mg/dL Calcium 8.5 (8.4-10.2) mg/dL Magnesium (1.6-2.3) mg/dL Total Bilirubin 0.90 (0.2-1.3) mg/dL AST 39 (17-59) U/L ALT 25 (0-50) U/L Alkaline Phosphatase 72 (38-126) U/L Troponin I (0.000-0.034) ng/mL Serum Total Protein 6.0 L (6.3-8.2) g/dL Albumin 2.9 L (3.5-5.0) g/dL Slides for Path Review YES 02/01/19 02/02/19 02/02/19 Range/Units 12:13 05:22 05:22 WBC 4.7 (4.0-10.5) K/mm3 RBC 2.65 L (4.1-5.6) M/mm3 Hgb 8.3 L (12.5-18.0) gm/dl Hct 24.5 L (42-50) % MCV 92.5 (78-100) fl MCH 31.3 (26-32) pg MCHC 33.9 (32-36) g/dl RDW 18.6 H (11.5-14.0) % Plt Count 377 (150-450) K/mm3 MPV 8.9 (6-9.5) fl Gran % (36.0-66.0) % Eos # (Auto) (0-0.5) Absolute Lymphs (auto) (1.0-4.6) Absolute Monos (auto) (0.0-1.3) Lymphocytes % (24.0-44.0) % Monocytes % (0.0-12.0) % Eosinophils % (0.00-5.0) % Basophils % (0.0-0.4) % Absolute Granulocytes (1.4-6.9) Basophils # (0-0.4) Sodium 135 L (137-145) mmol/L Potassium 4.5 (3.5-5.1) mmol/L Chloride 108 H (98-107) mmol/L Carbon Dioxide 22 (22-30) mmol/L Anion Gap 9.7 (5-15) MEQ/L BUN 25 H (9-20) mg/dL Creatinine 1.09 (0.66-1.25) mg/dL Estimated GFR > 60.0 ML/MIN Glucose 99 (74-106) mg/dL Calcium 8.0 L (8.4-10.2) mg/dL Magnesium 2.1 (1.6-2.3) mg/dL Total Bilirubin 0.70 (0.2-1.3) mg/dL AST 33 (17-59) U/L ALT 23 (0-50) U/L Alkaline Phosphatase 64 (38-126) U/L Troponin I < 0.012 (0.000-0.034) ng/mL Serum Total Protein 5.3 L (6.3-8.2) g/dL Albumin 2.4 L (3.5-5.0) g/dL Slides for Path Review Radiology Exams: Radiology Procedures Category Date Time Status CHEST 1 VIEW (PORTABLE) Urgent Exams 02/01/19 11:53 Completed Multi-Disciplinary Progress Notes: Multi-Disciplinary Progress Notes 02/01/19 14:27 Physical Therapy Note by Ines Raya PATIENT IN BED ON 3L 02 PER NC THIS AFTERNOON. NO C/O. O2 SAT AT 96% SUPINE. SAT ON EDGE OF BED O2 SAT 89% BUT WITH DEEP BREATHING INCREASED TO 91%. STOOD PATIENT WITH ROLLATOR AT BEDSIDE. PATIENT WAS ALERT BUT UNRESPONSIVE WITH FIXED GAZE. LAID BACK DOWN AND WAS IMMEDIATELY RESPONSIVE AND STATING HE FELT FINE. 02 SAT WAS 94%. DISCUSSED PATIENT RESPONSE WITH DANGELO PÉREZ. STATES EEG HAS BEEN ORDERED. DISCUSSED WITH CATHODE MAKER FINDINGS AND POSSIBILITY OF ORTHOSTATIC HYPOTENSION. NURSE STATES THEY WILL CHECK B/Ps NEXT TIME THEY GET PATIENT UP. Initialized on 02/01/19 14:27 - END OF NOTE 02/01/19 11:49 Physical Therapy Note by Ines Raya ARRIVED IN PATIENT'S ROOM. PATIENT ALERT AND STATING FEELING BETTER. SITTING LEANING BACK IN RECLINER ON ROOM AIR. PULSE 90, O2 SAT 91%. PREPARED PATIENT TO GO TO A WALK WITH PATIENT SITTING UP FROM RECLINING POSITION, TRANSITIONED FROM SIT TO STAND WITH CUES FOR PROPER HAND PLACEMENT, AND THEN STARTED TO PUT ON SECOND GOWN TO GO FOR A WALK WHEN PATIENT STARTED TO FALL BACK. PATIENT EYES OPEN BUT STARING WITHOUT RESPONDING TO THERAPIST. PATIENT WAS LOWERED INTO CHAIR. PATIENT THEN RESPONDED TO THERAPIST AND STATED HE WAS JUST A LITTLE MORE TIRED THAN HE THOUGHT. O2 SAT CHECKED AND WAS 84%. APPLIED O2 AT 2L/NC AND PATIENT INSTRUCTED TO TAKE DEEP BREATHS. 02 SAT INCREASED TO 88% WITH HR 98. THERAPIST THEN SPOKE TO DANGELO WORLEY AND REPORTED 02 SAT AND BRIEF MENTAL STATUS CHANGE. NURSING INCREASED O2 TO 3 L/NC WITH 02 SAT INCREASING TO 89-90%. NURSE THEN CALLED RESPIRATORY THERAPY TO COME EVALUATE PATIENT. WILL ATTEMPT TO SEE PATIENT FOR THERAPY IN P.M. IF PATIENT CONDITION ALLOWS. INES RAYA, PT Initialized on 02/01/19 11:49 - END OF NOTE 02/01/19 08:50 Case Management Note by Stephanie Muniz DISCHARGE PLAN REVIEWED, CONTINUE TO PLAN TO DC TO [facility] ONCE SWING BED PROGRAM COMPLETE. Initialized on 02/01/19 08:50 - END OF NOTE Assessment/Plan (1) Pneumonia Current Visit: No Status: Acute Qualifiers: Pneumonia type: due to unspecified organism Laterality: left Lung location: lower lobe of lung Qualified Code(s): J18.1 - Lobar pneumonia, unspecified organism Assessment & Plan: I changed his antibiotic from levaquin to meropenem and would go ahead and continue until Thursday. Not sure if the pneumonia had actually worsened, as CXR may seem to indicate, but with recent hypotension opted to expand coverage. Code(s): J18.9 - PNEUMONIA, UNSPECIFIED ORGANISM (2) Orthostatic hypotension Current Visit: Yes Status: Acute Assessment & Plan: Likely has some at baseline and may have been exacerbated by some mild fluid depletion here or worsening of his pneumonia. Flomax may add to the issue but he has no catheter and so will keep that med on board (discussed with family). Add REYNALDO hose. The most important intervention I believe will be standing slowly and in stages to decrease the chance of falls. Code(s): I95.1 - ORTHOSTATIC HYPOTENSION (3) Gastric cancer Current Visit: No Status: Chronic Qualifiers: Malignant neoplasm of stomach location: unspecified location Qualified Code (s): C16.9 - Malignant neoplasm of stomach, unspecified (4) Nutrition disorder Current Visit: No Status: Acute Assessment & Plan: ate very well yesterday per family. Code(s): E63.9 - NUTRITIONAL DEFICIENCY, UNSPECIFIED (5) Anemia Current Visit: Yes Status: Acute Qualifiers: Anemia type: iron deficiency Iron deficiency anemia type: chronic blood loss Qualified Code(s): D50.0 - Iron deficiency anemia secondary to blood loss (chronic) Assessment & Plan: Hgb was up to 9.5 but back down to 8.3 this morning. Code(s): D64.9 - ANEMIA, UNSPECIFIED (6) HTN (hypertension) Current Visit: Yes Status: Chronic Qualifiers: Hypertension type: essential hypertension Assessment & Plan: antihypertensives held, for now. Code(s): I10 - ESSENTIAL (PRIMARY) HYPERTENSION (7) Physical deconditioning Current Visit: Yes Status: Acute Code(s): R53.81 - OTHER MALAISE
[2019-02-02] MEDS: NEURONTIN 300 MG PO SCH ×2 (10:24→23:12)
[2019-02-02] MEDS: Pepcid 20 MG PO SCH (10:24)
[2019-02-02] MEDS: PLAVIX 75 MG Tablet PO SCH (10:24)
[2019-02-02] MEDS: Alphagan P 0.15% OP SCH ×2 (10:24→23:12)
[2019-02-02] MEDS: Megace 40 MG/ML PO SCH (10:24)
[2019-02-02] MEDS: Flomax 0.4 MG PO SCH (10:24)
[2019-02-02] MEDS: Sodium Chloride 0.9% 1000 ML 1,000 ML IV SCH (10:25)
[2019-02-02] MEDS: Proscar 5 MG PO SCH (10:25)
[2019-02-02] MEDS: KEPPRA 500 MG PO SCH ×2 (13:15→23:12)
--- NOTE | 2019-02-02 14:50 | XRAY ---
Indication: Seizure activity. Multiple contiguous axial images obtained through the head using 80 cc Isovue 370 contrast as ordered. Comparison: October 19, 2018. Stable age-appropriate global atrophy, mild periventricular degenerative micro-ischemia, old right occipital lobe infarct, and mild scattered vascular calcifications. No abnormal enhancing intra or extra-axial mass. Fourth ventricle remains midline without hydrocephalus. Bony calvarium intact. Minimal opacification of the inferior left mastoid air cells unchanged. Visualized paranasal sinuses are clear. Impression: CT head with contrast exam demonstrates stable normal aging brain and partial opacification of the left mastoid air cells. No new/acute findings. CTDI 67.22
[2019-02-02] MEDS: Colace 100 MG PO SCH ×2 (16:22→23:12)
[2019-02-02] MEDS: Protonix 40MG Tablet PO SCH (23:12)
[2019-02-02] MEDS: LUMIGAN 0.01% 2.5 ML OP SCH (23:13)
[2019-02-03] MEDS: MERREM 500MG 500 MG in Sodium Chloride 100ML MINI-BAG PLUS 100 ML IV SCH ×3 (02:31→17:33)
[2019-02-03] MEDS: CHLORASEPTIC SPRAY 180 ML PO PRN ×2 (03:25→07:32)
[2019-02-03 05:45] LABS: Hematocrit 25.5 % (42-50); Hemoglobin 8.7 gm/dl (12.5-18.0); Mean Cell Volume 92.7 fl (78-100); Mean Corpuscular Hemoglobin 31.6 pg (26-32); Mean Corpuscular Hgb Concent. 34.1 g/dl (32-36); Mean Platelet Volume 8.6 fl (6-9.5); Platelet Count 358 K/mm3 (150-450); Red Blood Count 2.75 M/mm3 (4.1-5.6); Red Cell Distribution Width 18.7 % (11.5-14.0); White Blood Count 4.3 K/mm3 (4.0-10.5)
[2019-02-03 06:00] LABS: BLOOD UREA NITROGEN 22 mg/dL (9-20); CHLORIDE 107 mmol/L (98-107); Calcium 8.1 mg/dL (8.4-10.2); Carbon Dioxide 24 mmol/L (22-30); Creatinine 1 0.95 mg/dL (0.66-1.25); Glucose 92 mg/dL (74-106); Potassium 4.3 mmol/L (3.5-5.1); SODIUM 134 mmol/L (137-145)
[2019-02-03 06:22] LABS: ANISOCYTOSIS 2+; Lymphocytes 6 % (24-44); Monocyte 4 % (0.0-12.0); Neutrophils 90 % (36.-66.); Total Cells Counted 100
[2019-02-03 06:23] LABS: Platelet Estimate NORMAL (NORMAL); Poikilocytosis 1+; Polychromasia 1+
[2019-02-03] MEDS: Advair Hfa 115/21 Common canister IH SCH ×2 (07:26→18:30)
[2019-02-03] MEDS: NEURONTIN 300 MG PO SCH ×2 (08:45→22:13)
[2019-02-03] MEDS: Colace 100 MG PO SCH ×2 (08:45→22:13)
[2019-02-03] MEDS: Flomax 0.4 MG PO SCH (08:45)
[2019-02-03] MEDS: KEPPRA 500 MG PO SCH ×2 (08:45→22:13)
[2019-02-03] MEDS: Pepcid 20 MG PO SCH (08:45)
[2019-02-03] MEDS: PLAVIX 75 MG Tablet PO SCH (08:45)
[2019-02-03] MEDS: Proscar 5 MG PO SCH (08:46)
[2019-02-03] MEDS: Alphagan P 0.15% OP SCH ×2 (08:46→22:13)
[2019-02-03] MEDS: Megace 40 MG/ML PO SCH (08:46)
[2019-02-03] MEDS: MARY'S MOUTHWASH PO PRN ×2 (08:48→17:47)
[2019-02-03] MEDS: LUMIGAN 0.01% 2.5 ML OP SCH (22:13)
[2019-02-03] MEDS: Protonix 40MG Tablet PO SCH (22:13)
[2019-02-04] MEDS: MERREM 500MG 500 MG in Sodium Chloride 100ML MINI-BAG PLUS 100 ML IV SCH ×3 (02:35→17:53)
[2019-02-04] MEDS: MARY'S MOUTHWASH PO PRN ×2 (04:44→08:42)
[2019-02-04] MEDS: Sodium Chloride 0.9% 10 ML FLUSH Syringe IV SCH ×3 (06:00→22:00)
[2019-02-04] MEDS: Advair Hfa 115/21 Common canister IH SCH ×2 (07:23→19:52)
[2019-02-04] MEDS: NEURONTIN 300 MG PO SCH ×2 (10:30→21:42)
[2019-02-04] MEDS: KEPPRA 500 MG PO SCH ×2 (10:30→21:42)
[2019-02-04] MEDS: Flomax 0.4 MG PO SCH (10:30)
[2019-02-04] MEDS: PLAVIX 75 MG Tablet PO SCH (10:30)
[2019-02-04] MEDS: Megace 40 MG/ML PO SCH (10:31)
[2019-02-04] MEDS: Alphagan P 0.15% OP SCH ×2 (10:31→21:42)
[2019-02-04] MEDS: Colace 100 MG PO SCH ×2 (10:31→21:42)
[2019-02-04] MEDS: Pepcid 20 MG PO SCH (10:32)
[2019-02-04] MEDS: Proscar 5 MG PO SCH (10:32)
[2019-02-04] MEDS: Protonix 40MG Tablet PO SCH (21:42)
[2019-02-04] MEDS: LUMIGAN 0.01% 2.5 ML OP SCH (21:42)
[2019-02-05] MEDS: MERREM 500MG 500 MG in Sodium Chloride 100ML MINI-BAG PLUS 100 ML IV SCH ×3 (02:08→18:30)
[2019-02-05 05:58] LABS: Hemoglobin 8.8 gm/dl (12.5-18.0); Mean Cell Volume 92.5 fl (78-100); Mean Corpuscular Hemoglobin 31.3 pg (26-32); Mean Corpuscular Hgb Concent. 33.8 g/dl (32-36); Mean Platelet Volume 8.6 fl (6-9.5); Platelet Count 346 K/mm3 (150-450); Red Blood Count 2.81 M/mm3 (4.1-5.6); Red Cell Distribution Width 19.1 % (11.5-14.0); White Blood Count 5.3 K/mm3 (4.0-10.5)
[2019-02-05] MEDS: Sodium Chloride 0.9% 10 ML FLUSH Syringe IV SCH ×3 (06:00→21:42)
[2019-02-05 06:06] LABS: ALBUMIN 2.5 g/dL (3.5-5.0); ANION GAP 6.4 MEQ/L (5-15); BLOOD UREA NITROGEN 19 mg/dL (9-20); CHLORIDE 107 mmol/L (98-107); Calcium 8.2 mg/dL (8.4-10.2); Carbon Dioxide 25 mmol/L (22-30); Creatinine 1 0.76 mg/dL (0.66-1.25); Glucose 93 mg/dL (74-106); MAGNESIUM 1.9 mg/dL (1.6-2.3); Potassium 4.3 mmol/L (3.5-5.1); SODIUM 134 mmol/L (137-145); Total Protein 5.3 g/dL (6.3-8.2)
[2019-02-05] MEDS: Advair Hfa 115/21 Common canister IH SCH ×2 (09:17→19:24)
[2019-02-05] MEDS: Pepcid 20 MG PO SCH (10:38)
[2019-02-05] MEDS: KEPPRA 500 MG PO SCH ×2 (10:38→21:38)
[2019-02-05] MEDS: PLAVIX 75 MG Tablet PO SCH (10:38)
[2019-02-05] MEDS: Colace 100 MG PO SCH ×2 (10:38→21:38)
[2019-02-05] MEDS: Flomax 0.4 MG PO SCH (10:38)
[2019-02-05] MEDS: Proscar 5 MG PO SCH (10:38)
[2019-02-05] MEDS: Alphagan P 0.15% OP SCH ×2 (10:39→21:37)
[2019-02-05] MEDS: Megace 40 MG/ML PO SCH (10:39)
[2019-02-05] MEDS: NEURONTIN 300 MG PO SCH ×2 (10:39→21:38)
[2019-02-05] MEDS: Sodium Chloride 0.9% 10 ML FLUSH Syringe IV PRN (10:45)
[2019-02-05] MEDS: Sodium Chloride 0.9% 10 ML FLUSH Syringe PORT FLUSH PRN (10:46)
[2019-02-05] MEDS ORDERED: DULCOLAX 5 MG PO ONE (11:00)
[2019-02-05] MEDS ORDERED: Sodium Chloride 0.9% 500 ML 500 ML IV ONE (17:57)
[2019-02-05] MEDS ORDERED: Sodium Chloride 0.9% 250 ML 500 ML IV SCH (18:00)
[2019-02-05] MEDS: Protonix 40MG Tablet PO SCH (21:38)
[2019-02-05] MEDS: LUMIGAN 0.01% 2.5 ML OP SCH (21:41)
[2019-02-06] MEDS: MERREM 500MG 500 MG in Sodium Chloride 100ML MINI-BAG PLUS 100 ML IV SCH ×3 (02:17→18:21)
[2019-02-06] MEDS: Sodium Chloride 0.9% 10 ML FLUSH Syringe IV SCH ×2 (02:17→19:10)
[2019-02-06] MEDS: Advair Hfa 115/21 Common canister IH SCH ×2 (06:50→19:32)
[2019-02-06] MEDS: NEURONTIN 300 MG PO SCH ×2 (09:57→22:11)
[2019-02-06] MEDS: Flomax 0.4 MG PO SCH (09:57)
[2019-02-06] MEDS: Colace 100 MG PO SCH ×2 (09:57→22:10)
[2019-02-06] MEDS: KEPPRA 500 MG PO SCH ×2 (09:57→22:11)
[2019-02-06] MEDS: Pepcid 20 MG PO SCH (09:57)
[2019-02-06] MEDS: PLAVIX 75 MG Tablet PO SCH (09:57)
[2019-02-06] MEDS: Alphagan P 0.15% OP SCH ×2 (09:58→22:09)
[2019-02-06] MEDS: Megace 40 MG/ML PO SCH (10:01)
[2019-02-06] MEDS: Proscar 5 MG PO SCH (10:26)
[2019-02-06] MEDS: Sodium Chloride 0.9% 10 ML FLUSH Syringe PORT FLUSH PRN (22:09)
[2019-02-06] MEDS: Sodium Chloride 0.9% 10 ML FLUSH Syringe IV PRN (22:10)
[2019-02-06] MEDS: Protonix 40MG Tablet PO SCH (22:10)
[2019-02-06] MEDS: LUMIGAN 0.01% 2.5 ML OP SCH (22:12)
[2019-02-07] MEDS: MERREM 500MG 500 MG in Sodium Chloride 100ML MINI-BAG PLUS 100 ML IV SCH ×3 (02:14→17:36)
[2019-02-07] MEDS: Sodium Chloride 0.9% 10 ML FLUSH Syringe IV SCH ×4 (02:14→21:39)
[2019-02-07] MEDS: Advair Hfa 115/21 Common canister IH SCH ×2 (07:08→18:56)
--- NOTE | 2019-02-07 08:26 | PCM.NOTE ---
Date and Time: 02/07/19820 Subjective Assessment: Pt had another episode on Thursday while up walking - he was not walked on Thursday because of this. His bp got into the 70s systolic and he had to have a fluid bolus. He has been on O2 since he started having hypotensive episodes. Tolerating po but appetite is still not good. Had a BM this morning, first in some time. - Review of Systems Constitutional: No Fever Abdominal/Gastrointestinal: No Abdominal Pain, No Vomiting Objective Exam General Appearance: no apparent distress, alert Neurologic Exam: cooperative, normal mood/affect Skin Exam: normal color, warm, dry, No rash Respiratory Exam: diminished breath sounds, wheezing (RLL), No crackles/rales, No rhonchi Cardiovascular Exam: regular rate/rhythm, normal heart sounds, No murmur Gastrointestinal/Abdomen Exam: soft, tenderness (mild diffuse), No normal bowel sounds (hypoactive but present), No distention, No mass, No guarding, No rebound Extremity Exam: normal inspection, No pedal edema, No swelling Back Exam: normal inspection, No rash OBJECTIVE DATA Vital Signs: Vital Signs - 24 hr Temp Pulse Resp BP Pulse Ox 02/07/19 07:12 62 18 97 02/07/19 07:00 98.0 F 64 18 132/63 98 02/06/19 19:33 77 18 95 02/06/19 19:00 97.9 F 67 20 110/57 98 Oxygen-Last 24 hours O2 Percentage 3 Liters = 32% O2 Percentage 3 Liters = 32% Pain Assessment - Last Documented Pain Intensity 0 Pain Scale Used [facility] Intake and Output: Intake & Output 02/04/19 02/05/19 02/06/19 02/07/19 11:59 11:59 11:59 11:59 Intake Total 780 440 743 790 Output Total 2024 1000 1425 1275 Balance -1245 -560 -682 -485 Weight 80.4 kg 81 kg 81.7 kg 80.5 kg Radiology Exams: Radiology Procedures Category Date Time Status CHEST 2 VIEWS (PA AND LAT) Routine Exams 02/07/19 Ordered ECHO W/2D AND DOPPLER [US] Routine Exams 02/07/19 Ordered Assessment/Plan (1) Hypoxemia Current Visit: Yes Status: Acute Assessment & Plan: will check d-dimer. Has been on O2 for the past 5d. Code(s): R09.02 - HYPOXEMIA (2) Pneumonia Current Visit: No Status: Acute Qualifiers: Pneumonia type: due to unspecified organism Laterality: left Lung location: lower lobe of lung Qualified Code(s): J18.1 - Lobar pneumonia, unspecified organism Assessment & Plan: on meropenem day #6. WIll finish 1 more day of meropenem. Code(s): J18.9 - PNEUMONIA, UNSPECIFIED ORGANISM (3) Orthostatic hypotension Current Visit: Yes Status: Acute Assessment & Plan: Consulting cardiology - he typically sees Dr. Bray. Pt's BP is volatile. Six mo since last echo so I did order another one today. Code(s): I95.1 - ORTHOSTATIC HYPOTENSION (4) Gastric cancer Current Visit: No Status: Chronic Qualifiers: Malignant neoplasm of stomach location: unspecified location Qualified Code (s): C16.9 - Malignant neoplasm of stomach, unspecified (5) Nutrition disorder Current Visit: No Status: Chronic Assessment & Plan: He is tolerating some po. Changed diet from soft to full so he can have grimes as requested! Code(s): E63.9 - NUTRITIONAL DEFICIENCY, UNSPECIFIED (6) Anemia Current Visit: Yes Status: Chronic Qualifiers: Anemia type: iron deficiency Iron deficiency anemia type: chronic blood loss Qualified Code(s): D50.0 - Iron deficiency anemia secondary to blood loss (chronic) Assessment & Plan: Stable, Hgb of 8.8. Starting Fe oral today as his po intake is better. If not tolerated would do iron infusions. Will check hemoccult but pt does have known gastric cancer. Code(s): D64.9 - ANEMIA, UNSPECIFIED (7) HTN (hypertension) Current Visit: Yes Status: Chronic Qualifiers: Hypertension type: essential hypertension Code(s): I10 - ESSENTIAL (PRIMARY) HYPERTENSION (8) Physical deconditioning Current Visit: Yes Status: Chronic Assessment & Plan: getting rehab currently in swing bed. Code(s): R53.81 - OTHER MALAISE (9) DVT prophylaxis Current Visit: Yes Status: Acute Assessment & Plan: Due to his anemia, I have not added lovenox to his plavix. REYNALDO bueno. Code(s): Z29.9 - ENCOUNTER FOR PROPHYLACTIC MEASURES, UNSPECIFIED
--- NOTE | 2019-02-07 08:51 | XRAY ---
Indication: Pneumonia. Hypotension. Comparison: February 01, 2019. PA/lateral chest unchanged again with left base interstitial alveolar opacity, tiny left effusion, and right base atelectasis/scarring. Heart remains slightly enlarged again with left pacemaker and right Port-A-Cath. No new cardiopulmonary abnormalities.
[2019-02-07] MEDS: Alphagan P 0.15% OP SCH ×2 (09:40→21:36)
[2019-02-07] MEDS: FEOSOL 325 MG PO SCH (09:48)
[2019-02-07] MEDS: Colace 100 MG PO SCH ×2 (09:48→21:37)
[2019-02-07] MEDS: Megace 40 MG/ML PO SCH (09:50)
[2019-02-07] MEDS: Flomax 0.4 MG PO SCH (09:50)
[2019-02-07] MEDS: KEPPRA 500 MG PO SCH ×2 (09:50→21:38)
[2019-02-07] MEDS: Pepcid 20 MG PO SCH (09:51)
[2019-02-07] MEDS: PLAVIX 75 MG Tablet PO SCH (09:51)
[2019-02-07] MEDS: NEURONTIN 300 MG PO SCH ×2 (09:51→21:38)
[2019-02-07] MEDS: Proscar 5 MG PO SCH (09:52)
--- NOTE | 2019-02-07 12:14 | XRAY ---
Indication: Elevated d-dimer. Multiple contiguous axial images obtained through the chest using 100 cc Isovue 370 contrast and PE protocol. Comparison: January 05, 2019. There is good opacification of the pulmonary arteries. However mild respiration artifact especially through the lung bases limits evaluation of the more distal lobar and segmental branches. No central pulmonary embolus. Heart remains enlarged with interval diminished tiny pericardial effusion. Stable left dual-lead pacemaker and right Port-A-Cath. Aorta remains mildly arteriosclerotic without aneurysm/dissection. No pathologic mediastinal/hilar lymphadenopathy. New small hiatal hernia. Examination of the lung parenchyma demonstrates worsening bibasilar atelectasis with stable left base calcified granuloma. New inferior right upper lobe patchy airspace opacity. No consolidation or effusion. Bony thorax again demonstrates mild degenerative changes throughout the spine and remote T11 endplate fracture. Limited upper abdomen demonstrate stable hepatic cysts, cholecystectomy clips, and calcified splenic granulomas. Impression: 1. Pulmonary embolus evaluation limited by respiration artifact. No central pulmonary embolus. 2. New right upper lobe patchy airspace opacity without consolidation/effusion. 3. New small hiatal hernia. 4. Stable cardiomegaly, hepatic cyst, and evidence for old granulomatous disease. CT DI 22.50
[2019-02-07] MEDS: PROAMATINE 5 MG PO SCH ×2 (15:49→21:37)
--- NOTE | 2019-02-07 16:30 | XRAY ---
Indication: Elevated d-dimer. Two-dimensional sonogram and color Doppler imaging of the major venous vessels of the left and right lower leg was performed. Comparison: December 19, 2012. Again no thrombus seen in the examined deep venous vessels of the left and right leg including greater saphenous vein. Veins demonstrate normal compressibility. Venous waveforms are normal with and without augmentation. Impression: Left and right legs again negative for DVT.
--- NOTE | 2019-02-07 16:35 | XRAY ---
Indication: Hypotension. Two-dimensional sonogram and color Doppler imaging of the carotid arteries of the neck performed. Comparison: August 25, 2018. Examination of the right carotid circulation again negative for focal plaquing, critical stenosis, or obstruction. PSV of the CCA is 135 cm/s. PSV of the ICA is 157 cm/s. ICA/CCA ratio is 1.2. Normal antegrade vertebral artery flow. Examination of the right carotid circulation also remains widely patent. Proximal internal carotid artery remains tortuous. PSV of the CCA is 107 cm/s. PSV of the ICA is 86 cm/s. ICA/CCA ratio is 0.8. Normal antegrade vertebral artery flow. Impression: Carotid ultrasound remains widely patent. Velocity measurements and ratios again negative for hemodynamically significant flow-limiting stenosis.
[2019-02-07] MEDS: Protonix 40MG Tablet PO SCH (21:37)
[2019-02-07] MEDS: LUMIGAN 0.01% 2.5 ML OP SCH (21:41)
[2019-02-08] MEDS: MERREM 500MG 500 MG in Sodium Chloride 100ML MINI-BAG PLUS 100 ML IV SCH ×3 (02:43→17:30)
[2019-02-08] MEDS: Advair Hfa 115/21 Common canister IH SCH ×2 (09:14→19:11)
[2019-02-08] MEDS: NEURONTIN 300 MG PO SCH ×2 (10:13→21:27)
[2019-02-08] MEDS: Flomax 0.4 MG PO SCH (10:13)
[2019-02-08] MEDS: PLAVIX 75 MG Tablet PO SCH (10:13)
[2019-02-08] MEDS: KEPPRA 500 MG PO SCH ×2 (10:13→21:27)
[2019-02-08] MEDS: Pepcid 20 MG PO SCH (10:13)
[2019-02-08] MEDS: FEOSOL 325 MG PO SCH (10:14)
[2019-02-08] MEDS: Alphagan P 0.15% OP SCH ×2 (10:15→21:24)
[2019-02-08] MEDS: Colace 100 MG PO SCH ×2 (10:15→21:27)
[2019-02-08] MEDS: Megace 40 MG/ML PO SCH (10:16)
[2019-02-08] MEDS: PROAMATINE 5 MG PO SCH ×2 (10:32→21:28)
[2019-02-08] MEDS: Proscar 5 MG PO SCH (10:32)
[2019-02-08] MEDS: Sodium Chloride 0.9% 10 ML FLUSH Syringe IV SCH ×3 (10:41→21:29)
[2019-02-08] MEDS: Sodium Chloride 0.9% 10 ML FLUSH Syringe PORT FLUSH PRN (17:31)
[2019-02-08] MEDS: Sodium Chloride 0.9% 10 ML FLUSH Syringe IV PRN (18:14)
[2019-02-08] MEDS: Protonix 40MG Tablet PO SCH (21:29)
[2019-02-08] MEDS: LUMIGAN 0.01% 2.5 ML OP SCH (21:29)
[2019-02-09] MEDS: MERREM 500MG 500 MG in Sodium Chloride 100ML MINI-BAG PLUS 100 ML IV SCH (01:37)
[2019-02-09] MEDS: Sodium Chloride 0.9% 10 ML FLUSH Syringe IV SCH (02:12)
[2019-02-09 05:11] LABS: ANION GAP 7.3 MEQ/L (5-15); BLOOD UREA NITROGEN 17 mg/dL (9-20); CHLORIDE 106 mmol/L (98-107); Calcium 7.9 mg/dL (8.4-10.2); Carbon Dioxide 24 mmol/L (22-30); Creatinine 1 0.66 mg/dL (0.66-1.25); Glucose 88 mg/dL (74-106); Potassium 4.1 mmol/L (3.5-5.1); SODIUM 134 mmol/L (137-145)
[2019-02-09] MEDS: Advair Hfa 115/21 Common canister IH SCH ×2 (06:52→19:57)
--- NOTE | 2019-02-09 07:53 | ECHO ---
DATE OF PROCEDURE: 02/07/2019 CLINICAL INFORMATION: Hypotension. The M-mode 2D, and Doppler echocardiogram is a very difficult technical study. There are very poor windows. The left ventricle is normal in size at 4.0 cm. There is no apical thrombus present. The septal wall thickness is increased at 1.2 cm. The left ventricular posterior wall thickness is increased at 1.4 cm. There is accentuated contractility of the left ventricle. The ejection fraction is calculated to be 70%. The mitral valve E to A inflow velocity ratio is decreased at 0.7 consistent with impaired left ventricular relaxation. The right ventricle is grossly normal. The left atrium is normal in size at 3.7 cm. The interatrial septum is intact. The right atrium is normal. The aortic valve opens well. There is no aortic regurgitation present. The mitral valve is grossly normal. There is mild tricuspid regurgitation. The right ventricular systolic pressure is normal at 29 mm of Mercury. The pulmonic valve is not well visualized. The aortic root is 3.7 cm. There is no pericardial effusion present. IMPRESSION: 1) TECHNICALLY DIFFICULT ECHOCARDIOGRAM. 2) ACCENTUATED CONTRACTILITY OF THE LEFT VENTRICLE. 3) EVIDENCE OF IMPAIRED LEFT VENTRICULAR RELAXATION. 4) MILD TRICUSPID REGURGITATION. 5) NORMAL RIGHT VENTRICULAR SYSTOLIC PRESSURE.
[2019-02-09] MEDS ORDERED: Ativan 0.5 MG PO PRN (08:32)
[2019-02-09] MEDS: Pepcid 20 MG PO SCH (09:25)
[2019-02-09] MEDS: FEOSOL 325 MG PO SCH (09:25)
[2019-02-09] MEDS: Flomax 0.4 MG PO SCH (09:25)
[2019-02-09] MEDS: NEURONTIN 300 MG PO SCH ×2 (09:26→22:09)
[2019-02-09] MEDS: KEPPRA 500 MG PO SCH ×2 (09:26→22:09)
[2019-02-09] MEDS: Colace 100 MG PO SCH ×2 (09:26→22:09)
[2019-02-09] MEDS: Alphagan P 0.15% OP SCH ×2 (09:27→22:14)
--- NOTE | 2019-02-09 09:27 | PCM.NOTE ---
Date and Time: 02/09/19921 Subjective Assessment: Pt ate almost all his breakfast this morning - 2 pieces of grimes and 2 pieces of toast. No more episodes in the past 2 days; even with walking down the [place] yesterday. Would like his Tylenol pm at night. - Review of Systems Constitutional: No Fever Musculoskeletal: No Fall Objective Exam General Appearance: no apparent distress, alert Neurologic Exam: oriented x 3, cooperative Skin Exam: normal color, warm, dry, No rash Respiratory Exam: normal breath sounds, lungs clear, No crackles/rales, No rhonchi, No wheezing Cardiovascular Exam: regular rate/rhythm, normal heart sounds, No murmur Gastrointestinal/Abdomen Exam: soft, No normal bowel sounds (hyperactive), No tenderness, No mass, No guarding, No rebound Extremity Exam: No pedal edema, No swelling Back Exam: normal inspection, No rash OBJECTIVE DATA Vital Signs: Vital Signs - 24 hr Temp Pulse Resp BP Pulse Ox 02/09/19 07:23 97.6 F 70 20 112/68 96 02/09/19 06:52 63 18 97 02/08/19 19:41 98.1 F 87 18 105/55 93 L 02/08/19 19:11 88 18 93 L 02/08/19 09:39 88 20 96 Oxygen-Last 24 hours O2 Percentage 2 Liters = 28% O2 Percentage 2 Liters = 28% Pain Assessment - Last Documented Pain Intensity 0 Pain Scale Used 0-10 Pain Scale,FLACC Intake and Output: Intake & Output 02/06/19 02/07/19 02/08/19 02/09/19 11:59 11:59 11:59 11:59 Intake Total 743 790 710 520 Output Total 9283 6775 1300 975 Balance -682 -485 -590 -455 Weight 81.7 kg 80.5 kg 83.5 kg 82.7 kg Lab Results: Lab Results-Last 24 Hours 02/09/19 Range/Units 04:56 Sodium 134 L (137-145) mmol/L Potassium 4.1 (3.5-5.1) mmol/L Chloride 106 (98-107) mmol/L Carbon Dioxide 24 (22-30) mmol/L Anion Gap 7.3 (5-15) MEQ/L BUN 17 (9-20) mg/dL Creatinine 0.66 (0.66-1.25) mg/dL Estimated GFR > 60.0 ML/MIN Glucose 88 (74-106) mg/dL Calcium 7.9 L (8.4-10.2) mg/dL Radiology Exams: Radiology Procedures Category Date Time Status CAROTID BILATERAL [US] Urgent Exams 02/07/19 15:30 Completed CHEST 2 VIEWS (PA AND LAT) Routine Exams 02/07/19 08:40 Completed CHEST WITH CONTRAST [CT] Urgent Exams 02/07/19 10:56 Completed ECHO W/2D AND DOPPLER [US] Routine Exams 02/07/19 10:08 Draft VENOUS BILATERAL EXTREMITY [US] Urgent Exams 02/07/19 15:30 Completed Assessment/Plan (1) Hypoxemia Current Visit: Yes Status: Acute Assessment & Plan: improved. Code(s): R09.02 - HYPOXEMIA (2) Pneumonia Current Visit: No Status: Acute Qualifiers: Pneumonia type: due to unspecified organism Laterality: left Lung location: lower lobe of lung Qualified Code(s): J18.1 - Lobar pneumonia, unspecified organism Assessment & Plan: Stopped his IV meropenem today. Code(s): J18.9 - PNEUMONIA, UNSPECIFIED ORGANISM (3) Orthostatic hypotension Current Visit: Yes Status: Acute Assessment & Plan: [place] [facility] following. Doing much better on midodrine 2.5mg po BID. Code(s): I95.1 - ORTHOSTATIC HYPOTENSION (4) Gastric cancer Current Visit: No Status: Chronic Qualifiers: Malignant neoplasm of stomach location: unspecified location Qualified Code (s): C16.9 - Malignant neoplasm of stomach, unspecified (5) Nutrition disorder Current Visit: No Status: Chronic Assessment & Plan: eating much better. on megace. Code(s): E63.9 - NUTRITIONAL DEFICIENCY, UNSPECIFIED (6) Anemia Current Visit: Yes Status: Chronic Qualifiers: Anemia type: iron deficiency Iron deficiency anemia type: chronic blood loss Qualified Code(s): D50.0 - Iron deficiency anemia secondary to blood loss (chronic) Assessment & Plan: On oral iron. Code(s): D64.9 - ANEMIA, UNSPECIFIED (7) HTN (hypertension) Current Visit: Yes Status: Chronic Qualifiers: Hypertension type: essential hypertension Code(s): I10 - ESSENTIAL (PRIMARY) HYPERTENSION (8) Physical deconditioning Current Visit: Yes Status: Chronic Assessment & Plan: Plan is to continue swing bed and likely send pt to [place] next week ( Thursday or Thursday). Code(s): R53.81 - OTHER MALAISE (9) DVT prophylaxis Current Visit: Yes Status: Acute Assessment & Plan: REYNALDO bueno. Pt anemic, so avoiding lovenox. Code(s): Z29.9 - ENCOUNTER FOR PROPHYLACTIC MEASURES, UNSPECIFIED
[2019-02-09] MEDS: PLAVIX 75 MG Tablet PO SCH (09:29)
[2019-02-09] MEDS: Megace 40 MG/ML PO SCH (09:29)
[2019-02-09] MEDS: PROAMATINE 5 MG PO SCH ×2 (09:30→22:12)
[2019-02-09] MEDS: Proscar 5 MG PO SCH (09:30)
[2019-02-09] MEDS: Protonix 40MG Tablet PO SCH (22:09)
[2019-02-09] MEDS: TYLENOL EXTRA STRENGTH 500 MG PO SCH (22:10)
[2019-02-09] MEDS: BENADRYL 25 MG CAPSULE PO SCH (22:10)
[2019-02-09] MEDS: LUMIGAN 0.01% 2.5 ML OP SCH (22:10)
[2019-02-10] MEDS: Advair Hfa 115/21 Common canister IH SCH ×2 (06:28→19:58)
[2019-02-10] MEDS: PROAMATINE 5 MG PO SCH ×2 (08:18→21:28)
[2019-02-10] MEDS: Colace 100 MG PO SCH ×2 (08:22→21:28)
[2019-02-10] MEDS: KEPPRA 500 MG PO SCH ×2 (08:22→21:29)
[2019-02-10] MEDS: Flomax 0.4 MG PO SCH (08:22)
[2019-02-10] MEDS: Pepcid 20 MG PO SCH (08:23)
[2019-02-10] MEDS: PLAVIX 75 MG Tablet PO SCH (08:23)
[2019-02-10] MEDS: NEURONTIN 300 MG PO SCH ×2 (08:23→21:29)
[2019-02-10] MEDS: FEOSOL 325 MG PO SCH (08:23)
[2019-02-10] MEDS: Megace 40 MG/ML PO SCH (08:24)
[2019-02-10] MEDS: Alphagan P 0.15% OP SCH ×2 (08:24→21:31)
[2019-02-10] MEDS: Proscar 5 MG PO SCH (08:25)
[2019-02-10] MEDS: BENADRYL 25 MG CAPSULE PO SCH (21:28)
[2019-02-10] MEDS: Protonix 40MG Tablet PO SCH (21:28)
[2019-02-10] MEDS: LUMIGAN 0.01% 2.5 ML OP SCH ×2 (21:29→21:30)
[2019-02-10] MEDS: TYLENOL EXTRA STRENGTH 500 MG PO SCH (21:29)
[2019-02-11] MEDS: Advair Hfa 115/21 Common canister IH SCH ×2 (07:01→19:44)
--- NOTE | 2019-02-11 09:19 | PCM.NOTE ---
Date and Time: 02/11/19916 Subjective Assessment: Had an episode of decreased responsiveness again with desat and spent all day yesterday on 8L oximizer. Still on oximizer today. denies any pain. - Review of Systems Constitutional: No Fever Respiratory: Short Of Breath Objective Exam General Appearance: no apparent distress, alert Neurologic Exam: cooperative, normal mood/affect Skin Exam: normal color, warm, dry, No rash Respiratory Exam: normal breath sounds, lungs clear, No crackles/rales, No rhonchi, No wheezing Cardiovascular Exam: regular rate/rhythm, normal heart sounds, No murmur Extremity Exam: No pedal edema, No swelling Back Exam: normal inspection, No rash OBJECTIVE DATA Vital Signs: Vital Signs - 24 hr Temp Pulse Resp BP Pulse Ox 02/11/19 07:47 98.1 F 63 20 133/62 98 02/11/19 07:01 69 18 98 02/10/19 20:00 98.4 F 78 18 115/55 94 L 02/10/19 19:59 73 18 94 L Oxygen-Last 24 hours O2 Percentage 4 Liters = 36% O2 Percentage 4 Liters = 36% Pain Assessment - Last Documented Pain Intensity 0 Pain Scale Used 0-10 Pain Scale,FLACC Intake and Output: Intake & Output 02/08/19 02/09/19 02/10/19 02/11/19 11:59 11:59 11:59 11:59 Intake Total 710 520 400 900 Output Total 5392 639 4770 1570 Balance -590 -455 -830 -670 Weight 83.5 kg 82.7 kg 79.3 kg 79.4 kg Radiology Exams: Radiology Procedures Category Date Time Status CHEST 2 VIEWS (PA AND LAT) Urgent Exams 02/11/19 Ordered PULMONARY PERF VENTILATION [NUCMED] Urgent Exams 02/11/19 09:16 Ordered Multi-Disciplinary Progress Notes: Multi-Disciplinary Progress Notes 02/10/19 17:12 Respiratory Note by Dayanara Cali 1700 spo2 98% on oxymizer 5lpm, dec to 4lpm. Initialized on 02/10/19 17:12 - END OF NOTE 02/10/19 14:55 Physical Therapy Note by Gretchen Hall PATIENT PREPPING TO WALK WITH ROLLATOR WALKER AND ASSIST +1 WHEN HE STOOD FROM CHAIR AND SUDDENLY BECAME COGNITIVELY VAGUE, RIGID - UNABLE TO TAKE A STEP. RETURNED TO SITTING WITH 100% VERBAL CUEING; GRASP ON WALKER HARD TO RELEASE. NURSE NOTIFIED AND VITALS TAKEN - BP AND 02 SATS LOW. BP REBOUNDED, BUT O2 SAT REMAINED LOW EVEN WITH DEEP BREATHING TECHNIQUE. R.T CALLED - PATIENT PLACED ON RE-BREATHER AT 8L O2. WILL MONITOR. Initialized on 02/10/19 14:55 - END OF NOTE 02/10/19 13:57 Respiratory Note by Dayanara Cali 1325 spo2 on oxymizes 8lpm 99%. dec to 5lpm Initialized on 02/10/19 13:57 - END OF NOTE 02/10/19 11:40 Respiratory Note by Dayanara Cali 1120 rechecked spo2 on 5lpm 88%. placed on oxymizer at 8lpm. post 5 min spo2 92 rn notified. will continue to monitor Initialized on 02/10/19 11:40 - END OF NOTE 02/10/19 11:19 Respiratory Note by Dayanara Cali 1050 NOTIFIED BY NURSE THAT KATIE WAS WORKING WITH PT AND HAD SOME SORT OF AN EPISODE AND THEY WERE HAVING PROBLEMS GETTING HIS SPO2 UP. UPON ARRIVAL PT UP IN CHAIR WITH 3LPM N/C SPO2 85% AND PT DID APPEAR TO BE SOB. INCREASED O2 TO 5LPM AND INSTRUCTED PT TO BREATH THRU HIS NOSE AND OUT HIS MOUTH. AFTER APPROX 5MIN SPO2 INC TO 91% AND LESS DYSPENIC. WILL WEAN O2 BACK DOWN TOLERATED Initialized on 02/10/19 11:19 - END OF NOTE Assessment/Plan (1) Hypoxemia Current Visit: Yes Status: Acute Assessment & Plan: will recheck VQ scan, discussed blood thinner with Zaid hewitt's son. Will do thinner if needed, will transfuse if needs that subsequently. Code(s): R09.02 - HYPOXEMIA (2) Pneumonia Current Visit: No Status: Acute Qualifiers: Pneumonia type: due to unspecified organism Laterality: left Lung location: lower lobe of lung Qualified Code(s): J18.1 - Lobar pneumonia, unspecified organism Assessment & Plan: recheck cxr Code(s): J18.9 - PNEUMONIA, UNSPECIFIED ORGANISM (3) Orthostatic hypotension Current Visit: Yes Status: Acute Assessment & Plan: on midodrine Code(s): I95.1 - ORTHOSTATIC HYPOTENSION (4) Gastric cancer Current Visit: No Status: Chronic Qualifiers: Malignant neoplasm of stomach location: unspecified location Qualified Code (s): C16.9 - Malignant neoplasm of stomach, unspecified (5) Nutrition disorder Current Visit: No Status: Chronic Code(s): E63.9 - NUTRITIONAL DEFICIENCY, UNSPECIFIED (6) Anemia Current Visit: Yes Status: Chronic Qualifiers: Anemia type: iron deficiency Iron deficiency anemia type: chronic blood loss Qualified Code(s): D50.0 - Iron deficiency anemia secondary to blood loss (chronic) Assessment & Plan: recheck Code(s): D64.9 - ANEMIA, UNSPECIFIED (7) HTN (hypertension) Current Visit: Yes Status: Chronic Qualifiers: Hypertension type: essential hypertension Code(s): I10 - ESSENTIAL (PRIMARY) HYPERTENSION (8) Physical deconditioning Current Visit: Yes Status: Chronic Code(s): R53.81 - OTHER MALAISE (9) DVT prophylaxis Current Visit: Yes Status: Acute Code(s): Z29.9 - ENCOUNTER FOR PROPHYLACTIC MEASURES, UNSPECIFIED
[2019-02-11] MEDS: Flomax 0.4 MG PO SCH (09:29)
[2019-02-11] MEDS: Pepcid 20 MG PO SCH (09:29)
[2019-02-11] MEDS: FEOSOL 325 MG PO SCH (09:29)
[2019-02-11] MEDS: Colace 100 MG PO SCH ×2 (09:29→21:59)
[2019-02-11] MEDS: NEURONTIN 300 MG PO SCH ×2 (09:29→22:00)
[2019-02-11] MEDS: KEPPRA 500 MG PO SCH ×2 (09:29→21:59)
[2019-02-11] MEDS: PLAVIX 75 MG Tablet PO SCH (09:29)
[2019-02-11] MEDS: Alphagan P 0.15% OP SCH ×2 (09:30→22:00)
[2019-02-11] MEDS: PROAMATINE 5 MG PO SCH ×2 (09:31→22:57)
[2019-02-11] MEDS: Megace 40 MG/ML PO SCH (09:33)
[2019-02-11] MEDS: Proscar 5 MG PO SCH (09:33)
[2019-02-11] MEDS: Sodium Chloride 0.9% 10 ML FLUSH Syringe IV PRN (10:08)
[2019-02-11 10:17] LABS: Hematocrit 29.9 % (42-50); Mean Cell Volume 93.1 fl (78-100); Mean Corpuscular Hgb Concent. 33.4 g/dl (32-36); Mean Platelet Volume 8.4 fl (6-9.5); Platelet Count 283 K/mm3 (150-450); Red Blood Count 3.21 M/mm3 (4.1-5.6); Red Cell Distribution Width 19.3 % (11.5-14.0); White Blood Count 9.5 K/mm3 (4.0-10.5)
[2019-02-11 10:41] LABS: ANION GAP 7.4 MEQ/L (5-15); BLOOD UREA NITROGEN 16 mg/dL (9-20); CHLORIDE 108 mmol/L (98-107); Calcium 8.1 mg/dL (8.4-10.2); Carbon Dioxide 23 mmol/L (22-30); Creatinine 1 0.79 mg/dL (0.66-1.25); Glucose 122 mg/dL (74-106); Potassium 3.6 mmol/L (3.5-5.1); SODIUM 135 mmol/L (137-145)
[2019-02-11 10:44] LABS: Mean Corpuscular Hemoglobin 31.1 pg (26-32)
--- NOTE | 2019-02-11 13:30 | XRAY ---
Indication: Short of breath. Comparison: None 2 views of the chest unchanged again demonstrating CT proven bibasilar atelectasis/scarring and cardiomegaly with left-sided pacemaker and right Port-A-Cath. No new/acute findings.
--- NOTE | 2019-02-11 14:06 | XRAY ---
Indication: Short of breath, chest pain, and elevated d-dimer. Limited CT PE study of February 07, 2019 is negative for central pulmonary embolus. Patient received 5.9 mCi technetium 99 MAA for the perfusion portion of the study. Patient inhaled 36 mCi aerosolized technetium 99 DTPA for the ventilation portion. Multiple planar images obtained. Comparison: None Perfusion images demonstrates nonsegmental defects/blunting of both costophrenic angles. No other perfusion defects. Incidental cardiomegaly confirmed on same-day radiograph. Ventilation images demonstrates radiopharmaceutical activity predominantly within the central airway favoring chronic obstructive disease. Small amount of ingested radiopharmaceutical activity in the GI system. Impression: 1. Nonsegmental perfusion defects/blunting of both costophrenic angles and cardiomegaly. PIOPED criteria for pulmonary embolus is low probability. 2. Predominantly central airway radiopharmaceutical activity on ventilation images favoring chronic obstructive disease.
[2019-02-11] MEDS: TYLENOL EXTRA STRENGTH 500 MG PO SCH (21:59)
[2019-02-11] MEDS: Protonix 40MG Tablet PO SCH (21:59)
[2019-02-11] MEDS: BENADRYL 25 MG CAPSULE PO SCH (21:59)
[2019-02-11] MEDS: LUMIGAN 0.01% 2.5 ML OP SCH (22:05)
[2019-02-12] MEDS: Advair Hfa 115/21 Common canister IH SCH ×2 (06:45→19:31)
[2019-02-12] MEDS: ENOXAPARIN SODIUM SQ SCH (09:02)
[2019-02-12] MEDS: FEOSOL 325 MG PO SCH (09:03)
[2019-02-12] MEDS: KEPPRA 500 MG PO SCH ×2 (09:03→21:42)
[2019-02-12] MEDS: Alphagan P 0.15% OP SCH ×2 (09:03→21:45)
[2019-02-12] MEDS: Pepcid 20 MG PO SCH (09:03)
[2019-02-12] MEDS: NEURONTIN 300 MG PO SCH ×2 (09:03→21:42)
[2019-02-12] MEDS: PLAVIX 75 MG Tablet PO SCH (09:03)
[2019-02-12] MEDS: Colace 100 MG PO SCH ×2 (09:03→21:41)
[2019-02-12] MEDS: Flomax 0.4 MG PO SCH (09:03)
[2019-02-12] MEDS: Megace 40 MG/ML PO SCH (09:04)
[2019-02-12] MEDS: Proscar 5 MG PO SCH (09:05)
[2019-02-12] MEDS: PROAMATINE 5 MG PO SCH ×2 (09:05→21:43)
[2019-02-12] MEDS: Sodium Chloride 0.9% 10 ML FLUSH Syringe IV PRN (10:15)
[2019-02-12 10:28] LABS: Hematocrit 29.8 % (42-50); Hemoglobin 10.1 gm/dl (12.5-18.0); Mean Cell Volume 93.1 fl (78-100); Mean Corpuscular Hemoglobin 31.5 pg (26-32); Mean Corpuscular Hgb Concent. 33.9 g/dl (32-36); Mean Platelet Volume 8.8 fl (6-9.5); Platelet Count 269 K/mm3 (150-450); Red Cell Distribution Width 18.9 % (11.5-14.0); White Blood Count 7.9 K/mm3 (4.0-10.5)
[2019-02-12] MEDS: BENADRYL 25 MG CAPSULE PO SCH (21:41)
[2019-02-12] MEDS: TYLENOL EXTRA STRENGTH 500 MG PO SCH (21:42)
[2019-02-12] MEDS: Protonix 40MG Tablet PO SCH (21:42)
[2019-02-12] MEDS: LUMIGAN 0.01% 2.5 ML OP SCH (21:47)
[2019-02-13] MEDS: Advair Hfa 115/21 Common canister IH SCH ×2 (07:13→19:37)
[2019-02-13] MEDS: ENOXAPARIN SODIUM SQ SCH (09:05)
[2019-02-13] MEDS: Colace 100 MG PO SCH ×2 (09:06→22:16)
[2019-02-13] MEDS: KEPPRA 500 MG PO SCH ×2 (09:06→22:16)
[2019-02-13] MEDS: FEOSOL 325 MG PO SCH (09:06)
[2019-02-13] MEDS: Pepcid 20 MG PO SCH (09:06)
[2019-02-13] MEDS: PLAVIX 75 MG Tablet PO SCH (09:06)
[2019-02-13] MEDS: NEURONTIN 300 MG PO SCH ×2 (09:06→22:16)
[2019-02-13] MEDS: Alphagan P 0.15% OP SCH ×2 (09:07→22:15)
[2019-02-13] MEDS: Proscar 5 MG PO SCH (09:08)
[2019-02-13] MEDS: PROAMATINE 5 MG PO SCH ×2 (09:08→22:21)
[2019-02-13] MEDS: Megace 40 MG/ML PO SCH (09:10)
[2019-02-13] MEDS: Flomax 0.4 MG PO SCH (09:13)
[2019-02-13] MEDS: LUMIGAN 0.01% 2.5 ML OP SCH (22:15)
[2019-02-13] MEDS: BENADRYL 25 MG CAPSULE PO SCH (22:16)
[2019-02-13] MEDS: TYLENOL EXTRA STRENGTH 500 MG PO SCH (22:16)
[2019-02-13] MEDS: Protonix 40MG Tablet PO SCH (22:16)
[2019-02-14] MEDS: Advair Hfa 115/21 Common canister IH SCH ×2 (08:23→19:12)
[2019-02-14] MEDS: PLAVIX 75 MG Tablet PO SCH (09:12)
[2019-02-14] MEDS: Pepcid 20 MG PO SCH (09:12)
[2019-02-14] MEDS: FEOSOL 325 MG PO SCH (09:12)
[2019-02-14] MEDS: ENOXAPARIN SODIUM SQ SCH (09:12)
[2019-02-14] MEDS: Alphagan P 0.15% OP SCH ×2 (09:12→21:16)
[2019-02-14] MEDS: Flomax 0.4 MG PO SCH (09:13)
[2019-02-14] MEDS: PROAMATINE 5 MG PO SCH ×2 (09:13→22:25)
[2019-02-14] MEDS: Colace 100 MG PO SCH ×2 (09:13→21:17)
[2019-02-14] MEDS: NEURONTIN 300 MG PO SCH ×2 (09:13→21:18)
[2019-02-14] MEDS: KEPPRA 500 MG PO SCH ×2 (09:13→21:17)
[2019-02-14] MEDS: Proscar 5 MG PO SCH (09:13)
[2019-02-14] MEDS: Megace 40 MG/ML PO SCH (09:18)
[2019-02-14] MEDS ORDERED: PROAMATINE 5 MG PO ONE (11:30)
[2019-02-14] MEDS: LUMIGAN 0.01% 2.5 ML OP SCH (21:17)
[2019-02-14] MEDS: BENADRYL 25 MG CAPSULE PO SCH (21:17)
[2019-02-14] MEDS: Protonix 40MG Tablet PO SCH (21:18)
[2019-02-14] MEDS: TYLENOL EXTRA STRENGTH 500 MG PO SCH (21:18)
[2019-02-15] MEDS: Advair Hfa 115/21 Common canister IH SCH (07:05)
[2019-02-15 07:45] VITALS: BP 131/62; PULSE 65; O2SAT 95
[2019-02-15 08:46] LABS: Hematocrit 30.1 % (42-50); Hemoglobin 10.2 gm/dl (12.5-18.0); Mean Cell Volume 93.2 fl (78-100); Mean Corpuscular Hgb Concent. 33.9 g/dl (32-36); Mean Platelet Volume 8.7 fl (6-9.5); Platelet Count 298 K/mm3 (150-450); Red Blood Count 3.23 M/mm3 (4.1-5.6); Red Cell Distribution Width 19.2 % (11.5-14.0); White Blood Count 7.1 K/mm3 (4.0-10.5)
[2019-02-15 08:47] LABS: Mean Corpuscular Hemoglobin 31.5 pg (26-32)
--- NOTE | 2019-02-15 08:51 | PCM.NOTE ---
Date and Time: 02/15/19845 Subjective Assessment: Yesterday pt had another episode of hypotension with O2 desaturation. He has no complaints this morning. Is frank po well although he denies an increase in appetite. - Review of Systems Constitutional: No Fever Respiratory: Cough (this morning after eating his grimes) Objective Exam General Appearance: no apparent distress, alert Neurologic Exam: cooperative, normal mood/affect Skin Exam: normal color, warm, dry, No rash Respiratory Exam: lungs clear, diminished breath sounds, prolonged expirations, No crackles/rales, No rhonchi, No wheezing Cardiovascular Exam: regular rate/rhythm, normal heart sounds, No murmur Gastrointestinal/Abdomen Exam: soft, normal bowel sounds, No tenderness, No distention, No mass, No guarding, No rebound Extremity Exam: normal inspection, No pedal edema, No swelling OBJECTIVE DATA Vital Signs: Vital Signs - 24 hr Temp Pulse Resp BP Pulse Ox 02/15/19 07:44 98.2 F 65 18 131/62 95 02/14/19 20:00 97.8 F 82 20 135/50 94 L 02/14/19 19:23 82 22 90 L 02/14/19 10:24 92 L Oxygen-Last 24 hours O2 Percentage 2 Liters = 28% O2 Percentage 3 Liters = 32% Pain Assessment - Last Documented Pain Intensity 0 Pain Scale Used 0-10 Pain Scale Intake and Output: Intake & Output 02/12/19 02/13/19 02/14/19 02/15/19 11:59 11:59 11:59 11:59 Intake Total 360 720 660 480 Output Total 1400 1800 1075 400 [facility] -1040 -1080 -415 80 Weight 81.6 kg 80.8 kg 78.7 kg 78.6 kg Multi-Disciplinary Progress Notes: Multi-Disciplinary Progress Notes 02/14/19 14:32 Nutrition Note by Uzma Madrigal F/u Note: Regular diet con't with 50-75% po intake. adm weight 87.7 kg; current weight 78.7 kg - down 9kg. Labs 02/11= Na 135, glu 122, alb 2.5, hgb 10.1, hct 29.8. Sending ensure 1 can tid with meals. NAILA Stiles Initialized on 02/14/19 14:32 - END OF NOTE Assessment/Plan (1) Hypoxemia Current Visit: Yes Status: Acute Assessment & Plan: Accompanies his orthostatic hypotension Code(s): R09.02 - HYPOXEMIA (2) Pneumonia Current Visit: No Status: Resolved Qualifiers: Pneumonia type: due to unspecified organism Laterality: left Lung location: lower lobe of lung Qualified Code(s): J18.1 - Lobar pneumonia, unspecified organism Code(s): J18.9 - PNEUMONIA, UNSPECIFIED ORGANISM (3) Orthostatic hypotension Current Visit: Yes Status: Chronic Assessment & Plan: increased midodrine from 2.5mg po BID to 5mg po BID. Will watch bp. Ideally would watch for another couple of days then send to LTCF. Code(s): I95.1 - ORTHOSTATIC HYPOTENSION (4) Gastric cancer Current Visit: No Status: Chronic Qualifiers: Malignant neoplasm of stomach location: unspecified location Qualified Code (s): C16.9 - Malignant neoplasm of stomach, unspecified (5) Nutrition disorder Current Visit: No Status: Chronic Code(s): E63.9 - NUTRITIONAL DEFICIENCY, UNSPECIFIED (6) Anemia Current Visit: Yes Status: Chronic Qualifiers: Anemia type: iron deficiency Iron deficiency anemia type: chronic blood loss Qualified Code(s): D50.0 - Iron deficiency anemia secondary to blood loss (chronic) Assessment & Plan: recheck today, since he's been on lovenox. Code(s): D64.9 - ANEMIA, UNSPECIFIED (7) HTN (hypertension) Current Visit: Yes Status: Chronic Qualifiers: Hypertension type: essential hypertension Code(s): I10 - ESSENTIAL (PRIMARY) HYPERTENSION (8) Physical deconditioning Current Visit: Yes Status: Chronic Code(s): R53.81 - OTHER MALAISE (9) DVT prophylaxis Current Visit: Yes Status: Acute Code(s): Z29.9 - ENCOUNTER FOR PROPHYLACTIC MEASURES, UNSPECIFIED
[2019-02-15] MEDS: Alphagan P 0.15% OP SCH (09:23)
[2019-02-15] MEDS: PROAMATINE 5 MG PO SCH (09:23)
[2019-02-15] MEDS: Proscar 5 MG PO SCH (09:23)
[2019-02-15] MEDS: ENOXAPARIN SODIUM SQ SCH (09:23)
[2019-02-15] MEDS: Flomax 0.4 MG PO SCH (09:24)
[2019-02-15] MEDS: KEPPRA 500 MG PO SCH (09:24)
[2019-02-15] MEDS: NEURONTIN 300 MG PO SCH (09:24)
[2019-02-15] MEDS: PLAVIX 75 MG Tablet PO SCH (09:24)
[2019-02-15] MEDS: Colace 100 MG PO SCH (09:24)
[2019-02-15] MEDS: FEOSOL 325 MG PO SCH (09:24)
[2019-02-15] MEDS: Pepcid 20 MG PO SCH (09:24)
[2019-02-15] MEDS: Megace 40 MG/ML PO SCH (09:24)
[2019-02-15 09:25] LABS: ANION GAP 9.2 MEQ/L (5-15); BLOOD UREA NITROGEN 21 mg/dL (9-20); CHLORIDE 110 mmol/L (98-107); Calcium 8.3 mg/dL (8.4-10.2); Carbon Dioxide 22 mmol/L (22-30); Glucose 107 mg/dL (74-106); Potassium 3.9 mmol/L (3.5-5.1); SODIUM 138 mmol/L (137-145)
--- NOTE | 2019-02-15 15:23 | PCM.DS ---
Discharge Summary Date of Admission: 01/26/19 13:30 Admitting Physician: TANIYA MADERA Consults: Consults on Case 02/07/19 08:20 Tele-Health Consult ROUTINE Primary Care Provider: TANIYA MADERA Allergies Allergies No Known Drug Allergies Allergy (Verified 01/26/19 14:09) Hospital Summary - Hospital Course Hospital Course: is a 88 year old male pt o fmine from [facility] with COPD, and HTN, recent pacemaker placement, currently being treated for gastric ca who was admitted through ER with diverticulitis, LLL pneumonia, and nonobstructing renal stone. was initially hypotensive and septic. After his acute stay, he was kept on in swing bed for further antibiotics and PT. His antibiotic was changed to IV meropenem due to worsening pneumonia sx after he came to swing bed. Then he started having episodes of nonresponsiveness when he was up walking; no syncope. He was found to have orthostatic hypotension and cardiology was consulted. EEG nl. He was started on po midodrine 2.5mg BID. We had to change it to 5mg po BID after another episode 2d ago. His po intake was initially poor and he was on TPN; however now he is eating quite well (is on megace). Pt was anemic throughout his stay, although it has improved from about 8.3 during his acute stay and is now stable at 10.3. When pt had pre-syncopal episodes, his O2 sat would decrease. He was worked up for possible PE (after his d-dimer was, of course, elevated in this cancer pt). His LE doppler and CTA chest were negative. A few days later, his VQ scan was low probability for PE. I did finally start him on lovenox 40mg/d due to worries about increased risk of blood clots. The anemia has been stable since he started. Echo draft report with impaired LVH. carotid u/s nonacute. CT head nonacute during his stay. Pt will be discharged to LTCF today. - Vitals & Intake/Output Vital Signs: Vital Signs Temperature 98.2 F 02/15/19 07:44 Pulse Rate 65 02/15/19 07:44 Respiratory Rate 18 02/15/19 07:44 Blood Pressure 131/62 02/15/19 07:44 O2 Sat by Pulse Oximetry 95 02/15/19 07:44 Oxygen-Last Documented O2 Percentage 2 Liters = 28% Intake & Output: Intake & Output 02/13/19 02/14/19 02/15/19 02/16/19 11:59 11:59 11:59 11:59 Intake Total 720 660 480 Output Total 1800 1075 400 Balance -1080 -415 80 Weight 80.8 kg 78.7 kg 78.6 kg - Lab Result Diagrams: 02/15/19 08:35 02/15/19 08:35 Lab Results-Last 24 Hrs: Lab Results-Last 24 Hours 02/15/19 02/15/19 Range/Units 08:35 08:35 WBC 7.1 (4.0-10.5) K/mm3 RBC 3.23 L (4.1-5.6) M/mm3 Hgb 10.2 L (12.5-18.0) gm/dl Hct 30.1 L (42-50) % MCV 93.2 (78-100) fl MCH 31.5 (26-32) pg MCHC 33.9 (32-36) g/dl RDW 19.2 H (11.5-14.0) % Plt Count 298 (150-450) K/mm3 MPV 8.7 (6-9.5) fl Sodium 138 (137-145) mmol/L Potassium 3.9 (3.5-5.1) mmol/L Chloride 110 H (98-107) mmol/L Carbon Dioxide 22 (22-30) mmol/L Anion Gap 9.2 (5-15) MEQ/L BUN 21 H (9-20) mg/dL Creatinine 0.80 (0.66-1.25) mg/dL Estimated GFR > 60.0 ML/MIN Glucose 107 H (74-106) mg/dL Calcium 8.3 L (8.4-10.2) mg/dL - Procedures and Test Procedures and Tests throughout Hospitalization: Therapy Orders & Screens 01/26/19 10:39 Oxygen Nasal Cannula 3 lpm Comment: Respiratory Therapy Consult ONCE Comment: Reason For Exam: 01/26/19 10:55 PT Eval & Treat ( Order) ROUTINE Reason for Eval:: weakness Diagnosis: deconditioning r/t pneumonia 01/26/19 19:00 Respiratory Therapy Assessment DAILY Comment: Diagnosis: deconditioning r/t pneumonia 01/30/19 17:44 Peak Expiratory Flow Rate ONCE Comment: Reason For Exam: Diagnosis: DECONDITIONING R/T GASTRIC CA 02/01/19 11:53 EKG STAT Comment: Diagnosis: DECONDITIONING R/T GASTRIC CA 02/01/19 11:59 EEG 41-60 Minutes (Normal) ONCE Comment: Reason For Exam: Diagnosis: DECONDITIONING R/T GASTRIC CA Discharge Exam General Appearance: no apparent distress (exam done at approx 0830), alert Neurologic Exam: cooperative, normal mood/affect Eye Exam: eyes nml inspection Ears, Nose, Throat Exam: moist mucous membranes Neck Exam: normal inspection Respiratory Exam: diminished breath sounds, prolonged expirations, No crackles/ rales, No rhonchi, No wheezing Cardiovascular Exam: regular rate/rhythm, normal heart sounds, No murmur Extremity Exam: normal inspection, No pedal edema, No swelling Skin Exam: normal color, warm, dry, No rash Final Diagnosis/Problem List - Final Discharge Diagnosis/Problem (1) Hypoxemia Current Visit: Yes Status: Chronic Assessment & Plan: May need oxygen intermittently at LTCF Code(s): R09.02 - HYPOXEMIA (2) Orthostatic hypotension Current Visit: Yes Status: Chronic Code(s): I95.1 - ORTHOSTATIC HYPOTENSION (3) Gastric cancer Current Visit: No Status: Chronic (4) Nutrition disorder Current Visit: No Status: Chronic Assessment & Plan: eating much better Code(s): E63.9 - NUTRITIONAL DEFICIENCY, UNSPECIFIED (5) Anemia Current Visit: Yes Status: Chronic Assessment & Plan: stable Code(s): D64.9 - ANEMIA, UNSPECIFIED (6) HTN (hypertension) Current Visit: Yes Status: Chronic Code(s): I10 - ESSENTIAL (PRIMARY) HYPERTENSION (7) Physical deconditioning Current Visit: Yes Status: Chronic Assessment & Plan: to LTCF today Code(s): R53.81 - OTHER MALAISE (8) DVT prophylaxis Current Visit: Yes Status: Acute Assessment & Plan: Just out of bed as tolerated at LTCF. Code(s): Z29.9 - ENCOUNTER FOR PROPHYLACTIC MEASURES, UNSPECIFIED - Discharge Disposition: Skilled Care @ [facility] Condition: Stable Prescriptions: New Diphenhydramine HCl 25 mg [Benadryl 25 mg Capsule] 25 mg PO HS capsule Levetiracetam [Keppra 500 mg ] 500 mg PO BID tablet Nystatin/TCN/Hc/Diphenhydramin [Niesha's Mouthwash] 15 ml PO Q4H PRN PRN bottle PRN Reason: sore throat Megestrol Acetate 40 mg/ml [Megace 40 MG/ML] 400 mg PO DAILY ml Midodrine HCl 5 mg [Proamatine 5 mg] 5 mg PO BID tablet Albuterol 2.5 mg/3 ml Neb [Proventil 2.5 mg/3 ml Neb] 2.5 mg IH Q4H PRN PRN neb PRN Reason: Shortness Of Breath/Wheezing Continue Clopidogrel Bisulfate 75 mg [PLAVIX 75 MG Tablet] 75 mg PO DAILY Bimatoprost 0.01% [Lumigan 0.01% 2.5 ml] 1 drop OP HS raNITIdine HCl [Zantac] 150 mg PO QHS Multivit-Min/FA/Lycopen/Lutein [Centrum Silver Tablet] 1 each PO DAILY Tamsulosin HCl 0.4 mg [Flomax 0.4 MG] 0.4 mg PO DAILY Fluticasone/Vilanterol [Breo Ellipta 100-25 Mcg INH] 1 ea PO DAILY Pantoprazole 20 mg [Protonix 20MG Tablet] 40 mg PO DAILY Finasteride 5 mg PO DAILY Brimonidine Tartrate [Alphagan P] 1 drop OP DAILY Ondansetron ODT 4 MG [Zofran Odt 4 mg] 4 mg PO Q6H PRN PRN PRN Reason: n/v Hydrocodone/APAP 5/325 [[place] 5/325 mg] 1 each PO Q4H PRN PRN PRN Reason: Pain Lisinopril 5 mg [Zestril 5 MG] 5 mg PO DAILY Prochlorperazine Maleate 10 mg [Compazine 10 mg] 10 mg PO Q4HPRN PRN PRN Reason: n/v Loperamide HCl 2 mg [Imodium 2 mg] 2 mg PO UD PRN PRN Reason: Diarrhea Lorazepam 0.5 mg [Ativan 0.5 MG] 0.5 mg PO Q4H PRN PRN PRN Reason: Anxiety Additional Instructions: F/U WITH DR. TARIQ UPON DISCHARGE Follow up with: GUILLE TARIQ [CONSULTING PHYSICIAN] - 1 Week TANIYA MADERA [Primary Care Provider] - 1 Week
== END 2019-02-15 16:10 | DRG 194 ==
LOC: MED SURG 13:30
PROVIDERS: ADMIT Family Medicine; ATTEND Family Medicine
DX: J18.9 Pneumonia, unspecified organism (principal); C16.9 Malignant neoplasm of stomach, unspecified; K57.92 Diverticulitis of intestine, part unspecified, without perforation or abscess without bleeding; R53.81 Other malaise; I10 Essential (primary) hypertension; J44.9 Chronic obstructive pulmonary disease, unspecified; N20.0 Calculus of kidney; D64.9 Anemia, unspecified; I95.1 Orthostatic hypotension; E63.9 Nutritional deficiency, unspecified; Z79.01 Long term (current) use of anticoagulants; Z79.899 Other long term (current) drug therapy; Z95.0 Presence of cardiac pacemaker; R05 Cough; R09.02 Hypoxemia; R79.1 Abnormal coagulation profile; E78.5 Hyperlipidemia, unspecified
CPT/HCPCS: 36415; 70460; 71045; 71046; 71260; 78582; 80048; 80053; 82040; 82962; 83735; 83880; 84155; 84484; 85025; 85027; 85379; 93005; 93306; 93880; 93970; 94150; 94640; 94760; 95812; A9540; J1642; J1650; J1956; J7609; Q3014; 97110-GP; A9270-GY